=== PATIENT | male | born 1955 | race Caucasian/White ===

== ENCOUNTER 2018-10-28 11:33 | Inpatient (IN) | payer MEDICARE, OTHER ==
[~2018-10-28] VITALS: Ht 175.3 cm; Wt 80.0 kg
[2018-10-28 11:37] VITALS: Ht 175.3 cm; Wt 80.0 kg
[2018-10-28] MEDS ORDERED: ALBUTEROL 0.5% (NEB) 2.5 MG/0.5 ML AMP INH STA (11:40)
[2018-10-28] MEDS ORDERED: CEFTRIAXONE 1 GM/50 ML (PMX) 50 ML IVPB STA (11:40)
[2018-10-28] MEDS ORDERED: AZITHROMYCIN 500MG/NS (PMX) 250 ML IV STA (11:40)
[2018-10-28] MEDS ORDERED: DEXAMETHASONE 10 MG/ML 1 ML INJ IV STA (11:40)
[2018-10-28] MEDS ORDERED: SOD CHLORIDE 0.9% 1,000 ML IV STA ×2 (11:40)
[2018-10-28] MEDS ORDERED: IPRATROPIUM (NEB) 0.5 MG/2.5 ML AMP INH STA (11:40)
[2018-10-28] MEDS: MAGNESIUM SULFATE 2 GM/50 ML 50 ML IVPB STA ×2 (12:16→13:15)
--- NOTE | 2018-10-28 13:08 | ERD ---
ER Documentation Chief Complaint Chief Complaint BIB RA FOR EVAL OF SOB HX OF SMOKER HPI Very pleasant 62-year-old gentleman history of smoking who just quit several weeks ago. The patient states that he has had a couple days of subjective fevers, nonproductive cough and shortness of breath. He went to his doctor's office today but was noted to have shortness of breath and 911 was called. Patient denies any chest pain or chest pressure. No pleuritic pain, no calf swelling. Symptoms are moderate currently. Patient saturation were in the 80% via EMS. ROS All systems reviewed and are negative except as per history of present illness. 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) PMhx/Soc History of Surgery: No Anesthesia Reaction: No Hx Neurological Disorder: Yes (CSF LEAK) Hx Respiratory Disorders: Yes (COPD) Hx Cardiac Disorders: Yes (HTN) Hx Psychiatric Problems: No Hx Miscellaneous Medical Probl: Yes (LUPUS) Hx Alcohol Use: No Hx Substance Use: No Hx Tobacco Use: Yes (QUIT 8 WEEKS AGO) Smoking Status: Former smoker FmHx Family History: No diabetes Physical Exam Vitals Vital Signs Date Temp Pulse Resp B/P (MAP) Pulse Ox O2 O2 Flow FiO2 Time Delivery Rate 10/28/18 96 16 90 Nasal 2.0 28 11:54 Cannula 10/28/18 Nasal 2 11:40 Cannula 10/28/18 Nasal 2.0 11:40 Cannula 10/28/18 97.9 94 17 160/104 88 11:37 (122) Physical Exam General: Well developed, well nourished, no acute distress Head: Normocephalic, atraumatic. Eyes: Pupils equally reactive, EOM intact ENT: Moist mucous membranes Neck: Supple, no lymphadenopathy Respiratory: Scant wheezing bilaterally but no distress, good aeration Cardiovascular: RRR, no murmurs, rubs, or gallops Abdominal: Soft, non-tender, non-distended, no peritoneal signs : Deferred MSK: No edema, no unilateral swelling, 5/5 strength Neurologic: Alert and oriented, moving all extremities, normal speech, no focal weakness, no cerebellar signs Skin: No rash Psych: Normal mood Result Diagram: 10/28/18 1156 10/28/18 1156 Results 24 hrs Laboratory Tests Test 10/28/18 11:56 White Blood Count 10.5 10^3/ul Red Blood Count 4.92 10^6/ul Hemoglobin 14.5 g/dl Hematocrit 42.8 % Mean Corpuscular Volume 87.0 fl Mean Corpuscular Hemoglobin 29.5 pg Mean Corpuscular Hemoglobin Concent 33.9 g/dl Red Cell Distribution Width 12.1 % Platelet Count 387 10^3/UL Mean Platelet Volume 9.9 fl Immature Granulocytes % 0.500 % Neutrophils % 56.0 % Segmented Neutrophils % (Manual) 48 % Band Neutrophils % (Manual) 3 % Lymphocytes % 12.9 % Lymphocytes % (Manual) 19 % Monocytes % 8.6 % Monocytes % (Manual) 10 % Eosinophils % 20.8 % Eosinophils % (Manual) 18 % Basophils % 1.2 % Basophils % (Manual) 1 % Myelocytes % (Manual) 1 % Nucleated Red Blood Cells % 0.0 /100WBC Immature Granulocytes # 0.050 10^3/ul Neutrophils # 5.9 10^3/ul Neutrophils # (Manual) 5.1 10^3/ul Band Neutrophils # 0.3 10^3/ul Lymphocytes (Manual) 1.9 10^3/ul Lymphocytes # 1.4 10^3/ul Monocytes # 0.9 10^3/ul Monocytes # (Manual) 1.0 10^3/ul Eosinophils # 2.2 10^3/ul Basophils # 0.1 10^3/ul Basophils # (Manual) 0.1 10^3/ul Myelocytes # 0.1 10^3/ul Nucleated Red Blood Cells # 0.0 10^3/ul Platelet Estimate NORMAL Polychromasia 3+ Poikilocytosis 1+ Anisocytosis 1+ Microcytosis 1+ Sodium Level 142 mmol/L Potassium Level 4.1 mmol/L Chloride Level 104 mmol/L Carbon Dioxide Level 25 mmol/L Anion Gap 13 Blood Urea Nitrogen 15 mg/dl Creatinine 1.43 mg/dl Est Glomerular Filtrat Rate mL/min 50 mL/min Glucose Level 95 mg/dl Calcium Level 9.7 mg/dl Current Medications Medications Dose Sig/Juan Jose Start Time Status Last (Trade) Ordered Route PRN Stop Time Admin Dose Reason Admin Sodium 1,000 ml @ Q1H STAT 10/28/18 DC 10/28/18 Chloride 1,000 mls/hr IV 11:40 10/28/18 12:15 12:39 Azithromycin 250 ml @ ONCE STAT 10/28/18 DC 10/28/18 250 mls/hr IV 11:40 10/28/18 13:18 12:39 Ceftriaxone 50 ml @ ONCE STAT 10/28/18 DC 10/28/18 Sodium 100 mls/hr IVPB 11:40 10/28/18 12:16 12:09 Sodium 1,000 ml @ Q1H STAT 10/28/18 DC 10/28/18 Chloride 1,000 mls/hr IV 11:40 10/28/18 12:15 12:39 Albuterol 10 mg ONCE STAT 10/28/18 DC 10/28/18 (Proventil INH 11:40 10/28/18 11:49 0.5% (Neb)) 11:45 Ipratropium 1 mg ONCE STAT 10/28/18 DC 10/28/18 [place] INH 11:40 10/28/18 11:49 (Atrovent 11:45 0.02% (Neb)) 10 mg ONCE STAT 10/28/18 DC 10/28/18 Dexamethasone IV 11:40 10/28/18 12:15 (Decadron) 11:45 Magnesium 50 ml @ 25 ONCE STAT 10/28/18 DC 10/28/18 Sulfate mls/hr IVPB 11:40 10/28/18 13:15 13:39 Procedures/MDM EKG, MONITORS, & DIAGNOSTIC IMAGING: Chest x-ray: I reviewed and interpreted a 1 view of the chest Mediastinum: No enlargement Cardiac silhouette: No cardiomegaly Airspace: Interstitial process with possible right lower lobe infiltrate Bones: No evidence of fracture LAB INTERPRETATION: I reviewed the laboratory testing and it shows no evidence of acute process MEDICAL DECISION MAKING: The patient's presentation is very consistent with likely community acquired pneumonia versus COPD with exacerbation. Low concern for pulmonary embolism or dissection. No signs or symptoms concerning for ACS. Patient will benefit from evaluation for possible pneumonia and bacteremia but low concern for sepsis. ER COURSE: * Laboratory testing is reassuring. The patient's chest x-ray is additionally reassuring. Patient was given breathing treatment, magnesium, antibiotics, Decadron * After peer time the patient is much better. Saturations have dramatically improved. No increased work of breathing. Patient will likely do well on an outpatient setting. Return precautions were discussed and understood. * The patient does not meet criteria for sepsis at this time. * However, the patient saturations remained 86% on room air. The patient still having some symptoms. Inpatient hospitalization for hypoxia would be reasonable. CONSULTATION: None DISPOSITION PLAN: Medical surgical admission Accepting care team and consultations: I discussed the current laboratory data, diagnostic imaging and emergency care provided. Admitting team: Dr. Mota Admitting team indication: Insurance directed Departure Diagnosis: Primary Impression: Community acquired pneumonia Laterality: right Lung location: lower lobe of lung Qualified Codes: J18.1 - Lobar pneumonia, unspecified organism Additional Impressions: COPD with exacerbation Hypoxia Condition: Stable DENYS MUHAMMAD MD Oct 28, 2018 13:08
[2018-10-28] MEDS ORDERED: TAMS-14 PO (13:40)
[2018-10-28] MEDS ORDERED: SULF1TAB31 PO (13:40)
[2018-10-28] MEDS ORDERED: CLON0.2T5 PO (13:41)
[2018-10-28] MEDS ORDERED: HYDR200T39 PO (13:42)
[2018-10-28] MEDS ORDERED: RIZA10TA24 PO (13:43)
[2018-10-28] MEDS ORDERED: OXYC60TA9 PO (13:44)
[2018-10-28] MEDS ORDERED: TEMA30CA PO (13:44)
[2018-10-28] MEDS ORDERED: OXYC30TA64 PO (13:44)
[2018-10-28] MEDS ORDERED: ONDA4TAB13 PO (13:48)
[2018-10-28] MEDS ORDERED: ACETAMINOPHEN 325 MG TAB PO PRN ×2 (14:00→15:30)
[2018-10-28] MEDS ORDERED: ONDANSETRON 4 MG INJ IV PRN (14:00)
[2018-10-28] MEDS ORDERED: LEVOFLOXACIN 750MG/D5W (PMX) 150 ML IVPB SCH (15:30)
[2018-10-28] MEDS ORDERED: NACL 0.9% 3 ML SYG IV SCH (15:30)
[2018-10-28] MEDS: AMLODIPINE 5 MG TAB PO SCH (15:30)
[2018-10-28] MEDS ORDERED: HYDROCODONE/APAP (5/325) TAB PO PRN ×2 (15:30)
[2018-10-28] MEDS ORDERED: ACETAMINOPHEN 650 MG SUPP PR PRN (15:30)
--- NOTE | 2018-10-28 15:51 | HP ---
Date/Time of Note Date/Time of Note DATE: 10/28/18 TIME: 15:44 Assessment/Plan VTE Prophylaxis Pharmacological prophylaxis: LMWH Lines/Catheters IV C[facility]from [facility] Assessment/Plan Hospital Course Assessment and plan 1. Community acquired pneumonia. Continuing antibiotic treatment. Patient does report allergy to Levaquin. To new on Rocephin and azithromycin. 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 2. Suspect COPD with exacerbation. Patient does have extensive cigarette smoking history. Will start on breathing treatments. Cessation was advised. Continue with nicotine patch. 3. Respiratory failure secondary to #1 and #2. Continue with O2. Follow-up on chest imaging 4. History of lupus. Will resume patient's hydroxychloroquine. 5. Renal insufficiency. Will get continuing education director consultation. 6. Hypertension. Will start antihypertensives. Will adjust as needed 7. History of Chiari malformation status post surgical intervention 11 years ago. Patient does state that he does have chronic pain secondary to this as well as migraines. Will resume on analgesics. 8. Migraines. Continue with analgesics. Discussed POC with Dr. Kinsey Result Diagram: 10/28/18 1156 10/28/18 1156 Results 24hrs Laboratory Tests Test 10/28/18 11:56 10/28/18 12:56 10/28/18 13:53 White Blood Count 10.5 Red Blood Count 4.92 Hemoglobin 14.5 Hematocrit 42.8 Mean Corpuscular Volume 87.0 Mean Corpuscular Hemoglobin 29.5 Mean Corpuscular Hemoglobin Concent 33.9 Red Cell Distribution Width 12.1 Platelet Count 387 Mean Platelet Volume 9.9 Immature Granulocytes % 0.500 H Neutrophils % 56.0 Segmented Neutrophils % (Manual) 48 Band Neutrophils % (Manual) 3 Lymphocytes % 12.9 L Lymphocytes % (Manual) 19 Monocytes % 8.6 Monocytes % (Manual) 10 Eosinophils % 20.8 H Eosinophils % (Manual) 18 H Basophils % 1.2 Basophils % (Manual) 1 Myelocytes % (Manual) 1 H Nucleated Red Blood Cells % 0.0 Immature Granulocytes # 0.050 H Neutrophils # 5.9 Neutrophils # (Manual) 5.1 Band Neutrophils # 0.3 Lymphocytes (Manual) 1.9 Lymphocytes # 1.4 Monocytes # 0.9 Monocytes # (Manual) 1.0 H Eosinophils # 2.2 H Basophils # 0.1 Basophils # (Manual) 0.1 H Myelocytes # 0.1 H Nucleated Red Blood Cells # 0.0 Platelet Estimate NORMAL Polychromasia 3+ Poikilocytosis 1+ Anisocytosis 1+ Microcytosis 1+ Sodium Level 142 Potassium Level 4.1 Chloride Level 104 Carbon Dioxide Level 25 Anion Gap 13 Blood Urea Nitrogen 15 Creatinine 1.43 H Est Glomerular Filtrat Rate mL/min 50 L Glucose Level 95 Calcium Level 9.7 POC Venous Lactate 1.4 Lactic Acid Level 1.3 HPI/ROS Admit Date/Time Admit Date/Time Hx of Present Illness This is a 62-year-old male with reported history of lupus, Chiari malformation status post reported brain surgery 11 years ago, chronic pain ,hypertension, kelly spect COPD, BPH, migraines, who came to the hospital due to reports of increased shortness of breath. Patient did report that he quit smoking cigarettes 8 weeks ago. He has since then had 4 episodes of increased shortness of breath. He reported yesterday that he had a fever of 101.0 and took Tylenol. He also had some shortness of breath. This morning he reported he was going up a flight of stairs and had increased shortness of breath. As such he went to the hospital for further evaluation. He did have chest imaging initially done but did have findings showing mild bibasilar interstitial opacities with trace interstitial edema or atypical infectious/inflammatory process. he was afebrile on admission but did have a blood pressure 160/104. He was reportedly desaturating on room air on arrival to the ER was provided oxygen. His creatinine was 1.43 with a BUN of 50. No leukocytosis noted. Currently remains on O2. Reports better breathing. Denies any cough. We will evaluate him for the aformentiond issues. ROS 12 point review of systems obtained and entirely negative except as mentioned in the history of present illness PMH/Family/Social Past Medical History Medical/surgical history 1. Reported Chiari malformation status post brain surgery 11 years ago 2. Chronic pain secondary to #1 3. Hypertension 4. Suspect CVD 5. BPH 6. Migraines Medications Current Medications Ondansetron HCl (Zofran Inj) 4 mg BRIDGE ORDER PRN IV NAUSEA/VOMITING; Start 10/28/18 at 14:00; Stop 10/29/18 at 13:59 Acetaminophen (Tylenol Tab) 650 mg ER BRIDGE PRN PO .MILD PAIN 1-3 OR TEMP; St art 10/28/18 at 14:00; Stop 10/29/18 at 13:59 Hydroxychloroquine Sulfate (Plaquenil) 200 mg BID PO ; Start 10/28/18 at 21:00 Fluticasone/ Vilanterol (Breo Ellipta 100-25 Mcg Inh) 1 inh DAILY INH ; Start 10/29/18 at 09:00; Status UNV Albuterol/ Ipratropium (Duoneb) 3 ml Q4HWA RESP THERAPY HHN ; Start 10/28/18 at 17:00 Albuterol/ Ipratropium (Duoneb) 3 ml Q3H RESP THERAPY PRN HHN SHORTNESS OF BREATH; Start 10/28/18 at 15:30 Amlodipine Besylate (Norvasc) 5 mg DAILY PO ; Start 10/28/18 at 15:30 Hydralazine HCl (Apresoline) 10 mg Q4H PRN IV sbp>160; Start 10/28/18 at 15:30 Sodium Chloride 1,000 ml @ 75 mls/hr [id number] IV ; Start 10/28/18 at 15:30 IV Flush (NS 3 ml) 3 ml PER PROTOCOL IV ; Start 10/28/18 at 15:30 Ondansetron HCl (Zofran Inj) 4 mg Q6H PRN IV NAUSEA/VOMITING; Start 10/28/18 at 15:30 Acetaminophen (Tylenol Tab) 650 mg Q6H PRN PO .PAIN 1-3 OR TEMP; Start 10/28/18 at 15:30 Acetaminophen (Tylenol Supp) 650 mg Q6H PRN SD .PAIN 1-3 OR TEMP; Start 10/28/18 at 15:30 Acetaminophen/ Hydrocodone Bitart ([place] (5/325)) 1 tab Q6H PRN PO .MOD PAIN 4- 6; Start 10/28/18 at 15:30 Acetaminophen/ Hydrocodone Bitart ([place] (5/325)) 2 tab Q6H PRN PO .SEVERE PAIN 7-10; Start 10/28/18 at 15:30 Morphine Sulfate (morphine) 2 mg Q4H PRN IV .SEVERE PAIN 7-10; Start 10/28/18 at 15:30 Enoxaparin Sodium (Lovenox) 40 mg DAILY SC ; Start 10/29/18 at 09:00; Status UNV Ceftriaxone Sodium 50 ml @ 100 mls/hr Q24H IVPB ; Start 10/28/18 at 16:00; Status UNV Azithromycin 250 ml @ 250 mls/hr Q24H IVPB ; Start 10/28/18 at 16:00; Status UNV Ondansetron HCl (Zofran Tab) 4 mg Q6H PRN PO NAUSEA AND/OR VOMITING; Start 10/28/18 at 16:00; Status UNV Oxycodone HCl (Oxycontin) 30 mg BID PRN PO pain; Start 10/28/18 at 16:00; Status UNV Oxycodone HCl (Oxycontin) 60 mg Q8H PO ; Start 10/28/18 at 16:00; Status UNV Tamsulosin HCl (Flomax) 0.4 mg HS PO ; Start 10/28/18 at 21:00; Status UNV Miscellaneous Information 10 mg NEEDED PRN PO MIGRAINE; Start 10/28/18 at 16:00; Status UNV Miscellaneous Information 30 mg HS PRN PO INSOMNIA; Start 10/28/18 at 16:00; Status UNV Coded Allergies: levofloxacin (Verified Allergy, Severe, NENA CECILE'S SYNDROME, 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) Social History Alcohol Use: none Smoking Status: Former smoker (Reports over 45-year cigarette smoking history) Drug Use: none Exam/Review of Systems Vital Signs Vitals Vital Signs Date Temp Pulse Resp B/P (MAP) Pulse Ox O2 O2 Flow FiO2 Time Delivery Rate 10/28/18 96 16 90 Nasal 2.0 28 11:54 Cannula 10/28/18 97.9 160/104 11:37 (122) Exam Constitutional: alert, oriented Psych: nl mood/affect Head: normocephalic Neck: supple, non-tender Respiratory: other (Minimal wheezing right upper lung field) Cardiovascular: other (Regular rate tachycardic) Gastrointestinal: soft, non-tender Musculoskeletal: No swelling Neurological: COPYIST II-XII intact, nl mental status, nl speech REGIDORCHRISTOPHER NP Oct 28, 2018 15:51
[2018-10-28] MEDS ORDERED: ONDANSETRON 4 MG TAB PO PRN (16:00)
[2018-10-28] MEDS: morphine 2 MG INJ IV PRN ×2 (16:12→20:21)
--- NOTE | 2018-10-28 16:54 | CONS ---
DATE OF ADMISSION: 10/28/2018 DATE OF CONSULTATION: 10/28/2018 TYPE OF CONSULTATION: Infectious disease. REASON FOR CONSULTATION: Antibiotic management. HISTORY OF PRESENT ILLNESS: Larry Cross is a 62-year-old male who was brought in for evaluati on for shortness of breath. The patient has a history of smoking and quit several weeks ago. He had a few days of subjective fever, nonproductive cough and shortness of breath. He went to his doctor' s office. He was noted to be short of breath and 911 was called. The patient's saturation was in th e 80s via EMS. His past problems include: 1. COPD. 2. Hypertension. 3. Lupus. 4. History of smoking, quit 8 weeks ago. 5. History of severe Anderson-Eduardo syndrome, on Levaquin. 6. History of CSF leak. PAST MEDICAL HISTORY: Operations as outlined. FAMILY HISTORY: Noncontributory. SOCIAL HISTORY: He quit smoking 8 weeks ago. He does not drink or abuse drugs. ALLERGIES: NONE TO PENICILLIN, SULFA OR FOODS. MEDICATIONS: Per chart. REVIEW OF SYSTEMS: As per HPI. PHYSICAL EXAMINATION: GENERAL: The patient is a well-developed, well-nourished male in no acute distress. VITAL SIGNS: Stable. He is afebrile. BP is 160/104. SKIN: Without generalized rash. HEENT: Within normal limits. NECK: Supple. LYMPH NODES: None palpable. CHEST: Decreased breath sounds at the bases with occasional wheezes. ABDOMEN: Soft, nontender without organosplenomegaly or masses. EXTREMITIES: Without cyanosis, clubbing or edema. RECTAL AND GENITAL: Deferred. NEUROLOGICAL: No focal neurological abnormalities. LABORATORY DATA: White count 10.5, H and H of 14.5 and 42.8, platelet count 387,000. BUN and creati nine is 15/1.43. He had 48% neutrophils, 3% bands. IMAGING: Chest x-ray showed mild bibasilar interstitial opacities, may represent trace interstitial edema or atypical infectious inflammatory process in the acute clinical setting. IMPRESSION AND PLAN: The patient was started on azithromycin and ceftriaxone for community-acquired pneumonia. We will continue him on this regimen. I suspect chronic obstructive pulmonary disease wi th exacerbation since he has an extensive smoking history. He has a history of lupus. We will resum e patient's hydroxychloroquine. He has a history of Chiari malformation status post surgical interve ntion 11 years ago. He also has chronic pain secondary to this as well as migraines. I will dictate my findings to the hospitalist. Dictated By: RACHEAL MORTENSEN MD, JD/LOUIE Conf#: [id number] DID#: [id number] CC: ZAID BISHOP DO; DENYS MUHAMMAD MD;*End*
[2018-10-28] MEDS: ALBUTEROL/IPRATROPIUM (NEB) 3 ML AMP HHN SCH ×2 (17:00→20:07)
[2018-10-28] MEDS: hydrALAzine 20 MG INJ IV PRN (17:46)
[2018-10-28 18:45] VITALS: BP 174/90; PULSE 80; RESP 18
[2018-10-28] MEDS: SOD CHLORIDE 0.9% 1,000 ML IV SCH (19:02)
[2018-10-28] MEDS: CEFTRIAXONE 2 GM/50 ML (PMX) 50 ML IVPB SCH (19:03)
--- NOTE | 2018-10-28 19:37 | CONS ---
DATE OF ADMISSION: 10/28/2018 DATE OF CONSULTATION: 10/28/2018 TYPE OF CONSULTATION: Nephrology. REASON FOR CONSULTATION: Acute kidney injury, CKD. PROVIDER REQUESTING CONSULT: Troy Milian NP HISTORY OF PRESENT ILLNESS: This is a 62-year-old male with past medical history of chronic kidney d isease with previous baseline creatinine around 1.4 mg/dL, history of lupus, history of hypertension, history of BPH, history of chronic pain syndrome, history Chiari malformation, history of COPD, who presents to [facility] with increased shortness of breath. The patient states over the past several weeks he has had increased shortness of breath. The patient states that he was rec ently diagnosed with pneumonia. He was on multiple course of antibiotics without resolution of his s hortness of breath. Most recently, the patient had episodes of dyspnea on exertion upon going up a f light of stairs. As a result, he was brought into [facility] Emergency Room for ev aluation. Upon arrival, the patient was hypertensive. Systolic blood pressure is 160. The patient had a chest x-ray which showed bibasilar interstitial opacities. The patient was started on IV antib iotics and was admitted to med/surg for evaluation. In terms of patient's renal history, the patient reported having CKD due to his underlying lupus. Th e patient's most recent creatinine from approximately 4 months ago was 1.4 mg/dL. The patient denies any hemoptysis, hematemesis, hematochezia. PAST MEDICAL HISTORY: As stated above, history of chronic kidney disease, history of lupus, history of hypertension, chronic pain syndrome, COPD, BPH, history of migraines. PAST SURGICAL HISTORY: Reviewed. ALLERGIES: PLEASE SEE LIST. FAMILY HISTORY: No family history of kidney disease. SOCIAL HISTORY: Does not drink, smoke or do drugs. MEDICATIONS: Have been reviewed. REVIEW OF SYSTEMS: A 14-point review of systems was conducted. Pertinent positives were stated in H PI; otherwise negative. PHYSICAL EXAMINATION: VITAL SIGNS: Blood pressure is 164/79, respirations 20, pulse 90, temperature 98.2. HEENT: Head is normocephalic. NECK: Supple. HEART: Regular rate. LUNGS: Show diminished breath sounds at the base. Positive rhonchi. ABDOMEN: Soft, nontender to palpation without rebound or guarding. EXTREMITIES: Negative for clubbing, cyanosis, no edema. DERMATOLOGIC: No rashes. MUSCULOSKELETAL: No joint effusion. NEUROLOGIC: No change in exam. LABORATORY DATA: Have been reviewed. IMAGING STUDIES: Have been reviewed. ASSESSMENT AND PLAN: This is a 62-year-old male who presents with: 1. Nonoliguric acute kidney injury on top of chronic kidney disease with previous creatinine around 1.49 mg/dL. Etiology of acute kidney injury is likely multifactorial secondary to hemodynamics, poss ible Bactrim effect. Other possibilities such as acute tubular injury and interstitial nephritis are considerations. Plan at this point is to check UA with microanalysis, check urine electrolytes. Th e patient had a renal ultrasound performed approximately 4 weeks ago and per patient, it was a normal study. We will therefore continue current medical management. We would recommend to hold Bactrim. Otherwise, continue supportive care, renally dose all medications. Continue course of IV hydration and monitor closely. 2. Chronic kidney disease with previous baseline creatinine of 1.4 mg/dL. Etiology is likely second gena to hypertension, questionable history of lupus nephritis. The patient's current acute kidney inj ury as stated above. We will continue current treatment, continue disease factor modification. We w ill also follow up a urinalysis. 3. Mineral bone disorder. Monitor calcium and phosphorus levels. 4. Hypertension. Continue current blood pressure regimen. 5. Pneumonia. Continue current antibiotic regimen. 6. History of chronic obstructive pulmonary disease with exacerbation. Continue to monitor. Contin ue nebulizers. 7. History of lupus. Continue hydroxychloroquine or plan. 8. History of Chiari malformation. Continue to monitor. Thank you, Troy, for this interesting consult. It will be a pleasure to follow patient with you t hrashleyout the hospital course. Dictated By: ZAID BISHOP DO NR/NTS Conf#: [id number] DID#: [id number] CC: JENNIFER ACOSTA MD;*End*
[2018-10-28 20:00] VITALS: BP 168/84; PULSE 83; RESP 18
[2018-10-28] MEDS: AZITHROMYCIN 500MG/NS (PMX) 250 ML IVPB SCH (20:21)
[2018-10-28] MEDS: HYDROXYCHLOROQUINE 200 MG TAB PO SCH (21:17)
[2018-10-28] MEDS: oxyCODONE (CR) 20 MG TAB [oxyCONTIN] PO SCH (21:17)
[2018-10-28] MEDS: TAMSULOSIN (SR) 0.4 MG CAP PO SCH (21:17)
[2018-10-28] MEDS ORDERED: OXYCODONE 60 MG PO SCH (22:00)
[2018-10-28 22:04] VITALS: BP 166/79; PULSE 82; RESP 20
[2018-10-28] MEDS: ALBUTEROL/IPRATROPIUM (NEB) 3 ML AMP HHN PRN (23:11)
[2018-10-29] VITALS (7 sets, daily range): BP systolic 121–183; BP diastolic 72–97; PULSE 88–95; RESP 16–20
[2018-10-29] MEDS: morphine 2 MG INJ IV PRN ×5 (00:50→18:51)
[2018-10-29] MEDS: hydrALAzine 20 MG INJ IV PRN ×2 (01:58→17:07)
[2018-10-29] MEDS: oxyCODONE 15 MG TAB PO PRN (01:58)
[2018-10-29] MEDS: SUMATRIPTAN 50 MG TAB PO PRN (02:12)
[2018-10-29] MEDS: ALBUTEROL/IPRATROPIUM (NEB) 3 ML AMP HHN PRN (03:09)
[2018-10-29] MEDS: SOD CHLORIDE 0.9% 1,000 ML IV SCH (04:50)
[2018-10-29] MEDS: ONDANSETRON 4 MG INJ IV PRN ×3 (06:06→20:45)
[2018-10-29] MEDS: oxyCODONE (CR) 20 MG TAB [oxyCONTIN] PO SCH ×3 (06:06→22:21)
[2018-10-29] MEDS: AMLODIPINE 5 MG TAB PO SCH (08:24)
[2018-10-29] MEDS: HYDROXYCHLOROQUINE 200 MG TAB PO SCH ×2 (08:24→20:45)
[2018-10-29] MEDS: FLUTICASONE/VILANTEROL 100-25 INH SCH (08:26)
[2018-10-29] MEDS: ENOXAPARIN 40 MG/0.4 ML SYG SC SCH (09:03)
[2018-10-29] MEDS: ALBUTEROL/IPRATROPIUM (NEB) 3 ML AMP HHN SCH ×4 (09:23→20:23)
--- NOTE | 2018-10-29 09:47 | PN ---
DATE: 10/29/2018 SUBJECTIVE: The patient is stable, no events overnight. No fevers, chills, nausea, vomiting. OBJECTIVE: VITAL SIGNS: Blood pressure is 121/74, pulse 94, respirations 19, temperature 98.0. HEENT: Head is normocephalic. NECK: Supple. HEART: Regular rate. LUNGS: Show diminished breath sounds at the base. ABDOMEN: Soft, nontender to palpation without rebound or guarding. EXTREMITIES: Negative for clubbing, cyanosis, no edema. DERMATOLOGIC: No rashes. MUSCULOSKELETAL: No joint effusion. NEUROLOGIC: No change in exam. MEDICATIONS: Have been reviewed. LABORATORY DATA: Has been reviewed. IMAGING STUDIES: Have been reviewed. ASSESSMENT AND PLAN: 1. Nonoliguric acute kidney injury on top of chronic kidney disease with previous baseline creatinin e around 1.4 mg/dL. Etiology of current acute kidney injury is secondary to hemodynamics, possible B actrim effect. The patient's renal function has improved with IV fluids, holding Bactrim. At this p oint, continue current treatment plan, supportive care, renally dose all meds. Will discontinue IV h ydration and monitor. 2. History of chronic kidney disease with previous baseline creatinine around 1.4 mg/dL. Etiology o f acute kidney injury is unclear. Questionable history of lupus. The patient's renal function has c urrently improved with IV hydration. Will continue to monitor, continue disease factor modification. 3. Mineral bone disorder, monitor calcium and phosphorus levels. 4. Hypertension. Continue current blood pressure regimen. 5. Pneumonia. Continue current antibiotic regimen. 6. History of chronic obstructive pulmonary disease, possible exacerbation. Continue medical manage ment. Continue nebulizers. 7. History of lupus. Continue current treatment plan. Continue hydroxychloroquine. 8. History of Chiari malformation. Continue to monitor. Dictated By: ZAID FISH/LOUIE Conf#: [id number] DID#: [id number]
[2018-10-29] MEDS ORDERED: SCOPOLAMINE 1.5 MG PATCH TRANSDERM ONE (10:00)
--- NOTE | 2018-10-29 13:54 | CONS ---
Assessment/Plan Assessment/Plan Hospital Course (Demo Recall) Patient is sleeping, comfortable on nasal cannula, no fevers overnight. WBC 11.4 platelets 370 neutrophils 85.3 BUN 17 creatinine 1.16 lactic acid 1.9 Antimicrobials: Zithromax, Rocephin Microbiology: Blood cultures negative, influenza swab negative Physical examination: Well-developed obese elderly man who is in no distress head atraumatic normocephalic neck is supple chest rise symmetrical breath sounds diminished bases heart: S1-S2 abdomen obese soft bowel sounds present extremities without cyanosis Assessment: 1. Community-acquired pneumonia/COPD exacerbation 2. Acute kidney injury with improving kidney function 3. Obesity 4. History of lupus 5. Hypertension 6. Migraine headaches status post surgical intervention for Ciari malformation Plan: Patient remains stable, kidney function improving, continue present care antibiotics repeat chest x-ray in a.m. Consultation Date/Type/Reason Admit Date/Time Oct 28, 2018 at 13:40 Initial Consult Date Type of Consult id Date/Time of Note DATE: 10/29/18 TIME: 13:53 Exam/Review of Systems Exam Vitals Vital Signs Date Temp Pulse Resp B/P (MAP) Pulse Ox O2 O2 Flow FiO2 Time Delivery Rate 10/29/18 89 22 96 Nasal 3.0 09:16 Cannula 10/29/18 99.0 183/86 08:35 (118) 10/28/18 28 11:54 Intake and Output 10/28/18 10/28/18 10/29/18 1414:59 22:59 06:59 IntakeIntake Total 2300 ml 350 ml 675 ml BalanceBalance 2300 ml 350 ml 675 ml Results Result Diagram: 10/29/18 0504 10/29/18 0504 Results 24hrs Laboratory Tests Test 10/28/18 17:13 10/28/18 22:00 10/29/18 05:04 10/29/18 09:21 Lactic Acid Level 2.1 *H 1.9 Urine Color YELLOW Urine Clarity CLEAR Urine pH 7.0 Urine Specific [place] 1.012 Urine Ketones NEGATIVE Urine Nitrite NEGATIVE Urine Bilirubin NEGATIVE Urine Urobilinogen NEGATIVE Urine Leukocyte Esterase NEGATIVE Urine Hemoglobin NEGATIVE Urine Random Creatinine 49.90 Urine Random Sodium 86 Urine Glucose 1+ H Urine Total Protein 18.0 H White Blood Count 11.4 H Red Blood Count 4.56 L Hemoglobin 13.4 L Hematocrit 39.7 L Mean Corpuscular Volume 87.1 Mean Corpuscular 29.4 Hemoglobin Mean Corpuscular 33.8 Hemoglobin Concent Red Cell Distribution 12.4 Width Platelet Count 370 Mean Platelet Volume 10.0 Immature Granulocytes % 0.500 H Neutrophils % 85.3 H Lymphocytes % 7.1 L Monocytes % 6.8 Eosinophils % 0.0 Basophils % 0.3 Nucleated Red Blood 0.0 Cells % Immature Granulocytes # 0.060 H Neutrophils # 9.8 H Lymphocytes # 0.8 Monocytes # 0.8 Eosinophils # 0.0 Basophils # 0.0 Nucleated Red Blood 0.0 Cells # Sodium Level 143 Potassium Level 4.1 Chloride Level 109 Carbon Dioxide Level 23 Anion Gap 11 Blood Urea Nitrogen 17 Creatinine 1.16 Est Glomerular Filtrat > 60 Rate mL/min Glucose Level 139 # Hemoglobin A1c 5.4 Calcium Level 9.3 Phosphorus Level 3.2 Magnesium Level 2.4 Total Bilirubin 0.2 Direct Bilirubin 0.00 Indirect Bilirubin 0.2 Aspartate Amino 27 Transf (AST/SGOT) Alanine 15 Aminotransferase (ALT/SG PT) Alkaline Phosphatase 120 Total Protein 8.2 H Albumin 4.3 Globulin 3.90 H Albumin/Globulin Ratio 1.10 Triglycerides Level 49 Cholesterol Level 149 LDL Cholesterol, 107 Calculated HDL Cholesterol 32 Cholesterol/HDL Ratio 4.6 Thyroid Stimulating 0.377 L Hormone (TSH) Free Thyroxine Index 2.63 Thyroxine (T4) 6.7 Triiodothyronine (T3) 39.2 Uptake Medications Medication Current Medications Hydroxychloroquine Sulfate (Plaquenil) 200 mg BID PO Last administered on 10/29/18 08:24; Admin Dose 200 MG; Start 10/28/18 at 21:00 Fluticasone/ Vilanterol (Breo Ellipta 100-25 Mcg Inh) 1 inh DAILY INH Last administered on 10/29/18 08:26; Admin Dose 1 INH; Start 10/29/18 at 09:00 Albuterol/ Ipratropium (Duoneb) 3 ml Q4HWA RESP THERAPY HHN Last administered on 10/29/18 09:23; Admin Dose 3 ML; Start 10/28/18 at 17:00 Albuterol/ Ipratropium (Duoneb) 3 ml Q3H RESP THERAPY PRN HHN SHORTNESS OF BREATH Last administered on 10/29/18 03:09; Admin Dose 3 ML; Start 10/28/18 at 15:30 Amlodipine Besylate (Norvasc) 5 mg DAILY PO Last administered on 10/29/18 08:24; Admin Dose 5 MG; Start 10/28/18 at 15:30 Hydralazine HCl (Apresoline) 10 mg Q4H PRN IV sbp>160 Last administered on 10/29/18 01:58; Admin Dose 10 MG; Start 10/28/18 at 15:30 IV Flush (NS 3 ml) 3 ml PER PROTOCOL IV ; Start 10/28/18 at 15:30 Ondansetron HCl (Zofran Inj) 4 mg Q6H PRN IV NAUSEA/VOMITING Last administered on 10/29/18 06:06; Admin Dose 4 MG; Start 10/28/18 at 15:30 Acetaminophen (Tylenol Tab) 650 mg Q6H PRN PO .PAIN 1-3 OR TEMP; Start 10/28/18 at 15:30 Acetaminophen (Tylenol Supp) 650 mg Q6H PRN SD .PAIN 1-3 OR TEMP; Start 10/28/18 at 15:30 Morphine Sulfate (morphine) 2 mg Q4H PRN IV .SEVERE PAIN 7-10 Last administered on 10/29/18 10:28; Admin Dose 2 MG; Start 10/28/18 at 15:30 Enoxaparin Sodium (Lovenox) 40 mg DAILY SC Last administered on 10/29/18 09:03; Admin Dose 40 MG; Start 10/29/18 at 09:00 Ceftriaxone Sodium 50 ml @ 100 mls/hr Q24H IVPB Last administered on 10/28/18 19:03; Admin Dose 100 MLS/HR; Start 10/28/18 at 17:00 Azithromycin 250 ml @ 250 mls/hr Q24H IVPB Last administered on 10/28/18 20:21; Admin Dose 250 MLS/HR; Start 10/28/18 at 18:00 Ondansetron HCl (Zofran Tab) 4 mg Q6H PRN PO NAUSEA AND/OR VOMITING; Start 10/28/18 at 16:00 Oxycodone HCl (Roxicodone) 30 mg BID PRN PO MODERATE PAIN LEVEL 4-6 Last administered on 10/29/18 01:58; Admin Dose 30 MG; Start 10/28/18 at 19:00 Tamsulosin HCl (Flomax) 0.4 mg HS PO Last administered on 10/28/18at 21:17; Admin Dose 0.4 MG; Start 10/28/18 at 21:00 Sumatriptan Succinate (Imitrex) 50 mg PRN PRN PO MIGRAINE Last administered on 10/29/18at 02:12; Admin Dose 50 MG; Start 10/28/18 at 19:30 Zolpidem Tartrate (Ambien) 5 mg HS MAY REPEAT X 1 PRN PO INSOMNIA; Start 10/28/18 at 17:30 Oxycodone HCl (Oxycontin) 60 mg Q8 PO Last administered on 10/29/18at 06:06; Admin Dose 60 MG; Start 10/28/18 at 22:00 Clonidine (Catapres) 0.1 mg Q4H PRN PO sbp>160; Start 10/29/18 at 09:00 ROCKY WILSON NP Oct 29, 2018 13:54
[2018-10-29] MEDS: CEFTRIAXONE 2 GM/50 ML (PMX) 50 ML IVPB SCH (16:36)
[2018-10-29] MEDS: AZITHROMYCIN 500MG/NS (PMX) 250 ML IVPB SCH (17:09)
--- NOTE | 2018-10-29 18:06 | CONS ---
Assessment/Plan Assessment/Plan Hospital Course (Demo Recall) Summary Assessment and Plan: Assessment: Chronic intermittent nausea/vomiting Community-acquired pneumonia Normocytic anemia, mild DOMO- improved History of COPD History of lupus History of Chiari malformation -S/p surgical intervention 11 years ago -Migraines since surgery History of severe Aurelio Eduardo's syndrome - from [facility] History of smoking quit 8 weeks ago Plan: Continue anti-emetic therapy- will add trial Reglan 10 mg IV q6hr- discussed side effects with patient- who verbalized understanding Add H2 baldomero BID Diet as tolerated Possible previous recent EGD- to look for report and bring to hospital Will consider EGD - if there has been no recent EGD Continue close observation Patient seen in collaboration with Dr. Kent CC: GHAZALA KENT MD ; Consultation Date/Type/Reason Admit Date/Time Oct 28, 2018 at 13:40 Date of Consultation: Oct 29, 2018 Type of Consult GI Reason for Consultation Chronic nausea/vomiting Requesting Provider: CHRISTOPHER MOORE NP Date/Time of Note DATE: 10/29/18 TIME: 17:41 Hx of Present Illness This is a 62-year-old male with past medical history of COPD, smoking however quit 8 weeks ago, severe Anderson-Eduardo syndrome from [facility], hypertension, lupus,Chiari malformation status post surgical intervention 11 years ago now has chronic pain and migraines from surgery admitted for community-acquired pneumonia patient presented earlier today with complaints of persistent nausea and vomiting. GIs been consulted for further evaluation. At time evaluation patient states this is something has been ongoing off and on for the past year when asked about work-up as completed patient said been "through the ringer'. Specifically asked if patient previously had an upper endoscopy he said he thinks he may have had a recent EGD at [facility] results or name of physician who completed the procedure. Per his request I called his Sylvia she does not believe patient had a previous EGD however she will go through paperwork. If report is found she will bring to the hospital tomorrow. Discussed plan with patient to start trial of Reglan [id number] and will start PPI IV daily for persistent nausea and vomiting. Review of Systems: [A 12 system, review was conducted and is negative except as noted in the HPI or here.] Past Medical History Home Meds Reported Medications Ondansetron Hcl* (Zofran*) 4 Mg Tab, 4 MG PO Q6H PRN for NAUSEA AND OR VOMITING, TAB 10/28/18 Temazepam* (Temazepam*) 30 Mg Capsule, 30 MG PO HS PRN for INSOMNIA, CAP 10/28/18 Oxycodone Hcl* (Oxycontin*) 60 Mg Tab.sr.12h, 60 MG PO Q8H, TAB 10/28/18 Oxycodone Hcl* (Oxycontin*) 30 Mg Tab.sr.12h, 30 MG PO NEEDED, TAB 10/28/18 Rizatriptan Benzoate (Rizatriptan Benzoate) 10 Mg Tab.rapdis, 10 MG PO NEEDED PRN for MIGRAINE, TAB may repeat after 2 hours, MAX 30 mg/24 hour 10/28/18 Hydroxychloroquine Sulfate* (Hydroxychloroquine Sulfate*) 200 Mg Tablet, 200 MG PO BID, TAB 10/28/18 Clonidine Hcl* (Clonidine Hcl*) 0.2 Mg Tablet, 0.2 MG PO BID PRN for NEEDED, TAB 10/28/18 Tamsulosin Hcl* (Flomax*) 0.4 Mg Cap.er.24h, 0.4 MG PO HS, CAP 10/28/18 Sulfamethoxazole/Trimethoprim* (Bactrim Ds* Tablet) 1 Each Tablet, 1 TAB PO BID, TAB FOR 21 DAYS, START DATE 10/17/18 10/28/18 Medications Current Medications Hydroxychloroquine Sulfate (Plaquenil) 200 mg BID PO Last administered on 10/29/18at 08:24; Admin Dose 200 MG; Start 10/28/18 at 21:00 Fluticasone/ Vilanterol (Breo Ellipta 100-25 Mcg Inh) 1 inh DAILY INH Last administered on 10/29/18at 08:26; Admin Dose 1 INH; Start 10/29/18 at 09:00 Albuterol/ Ipratropium (Duoneb) 3 ml Q4HWA RESP THERAPY HHN Last administered on 10/29/18at 15:10; Admin Dose 3 ML; Start 10/28/18 at 17:00 Albuterol/ Ipratropium (Duoneb) 3 ml Q3H RESP THERAPY PRN HHN SHORTNESS OF BREATH Last administered on 10/29/18at 03:09; Admin Dose 3 ML; Start 10/28/18 at 15:30 Amlodipine Besylate (Norvasc) 5 mg DAILY PO Last administered on 10/29/18 08:24; Admin Dose 5 MG; Start 10/28/18 at 15:30 Hydralazine HCl (Apresoline) 10 mg Q4H PRN IV sbp>160 Last administered on 10/29/18 17:07; Admin Dose 10 MG; Start 10/28/18 at 15:30 IV Flush (NS 3 ml) 3 ml PER PROTOCOL IV ; Start 10/28/18 at 15:30 Ondansetron HCl (Zofran Inj) 4 mg Q6H PRN IV NAUSEA/VOMITING Last administered on 10/29/18 14:29; Admin Dose 4 MG; Start 10/28/18 at 15:30 Acetaminophen (Tylenol Tab) 650 mg Q6H PRN PO .PAIN 1-3 OR TEMP; Start 10/28/18 at 15:30 Acetaminophen (Tylenol Supp) 650 mg Q6H PRN [place] .PAIN 1-3 OR TEMP; Start 10/28/18 at 15:30 Morphine Sulfate (morphine) 2 mg Q4H PRN IV .SEVERE PAIN 7-10 Last administered on 10/29/18 14:29; Admin Dose 2 MG; Start 10/28/18 at 15:30 Enoxaparin Sodium (Lovenox) 40 mg DAILY SC Last administered on 10/29/18 09:03; Admin Dose 40 MG; Start 10/29/18 at 09:00 Ceftriaxone Sodium 50 ml @ 100 mls/hr Q24H IVPB Last administered on 10/29/18 16:36; Admin Dose 100 MLS/HR; Start 10/28/18 at 17:00 Azithromycin 250 ml @ 250 mls/hr Q24H IVPB Last administered on 10/29/18 17:09; Admin Dose 250 MLS/HR; Start 10/28/18 at 18:00 Ondansetron HCl (Zofran Tab) 4 mg Q6H PRN PO NAUSEA AND/OR VOMITING; Start 10/28/18 at 16:00 Oxycodone HCl (Roxicodone) 30 mg BID PRN PO MODERATE PAIN LEVEL 4-6 Last administered on 10/29/18 01:58; Admin Dose 30 MG; Start 10/28/18 at 19:00 Tamsulosin HCl (Flomax) 0.4 mg HS PO Last administered on 10/28/18at 21:17; Admin Dose 0.4 MG; Start 10/28/18 at 21:00 Sumatriptan Succinate (Imitrex) 50 mg PRN PRN PO MIGRAINE Last administered on 10/29/18at 02:12; Admin Dose 50 MG; Start 10/28/18 at 19:30 Zolpidem Tartrate (Ambien) 5 mg HS MAY REPEAT X 1 PRN PO INSOMNIA; Start 10/28/18 at 17:30 Oxycodone HCl (Oxycontin) 60 mg Q8 PO Last administered on 10/29/18at 14:19; Admin Dose 60 MG; Start 10/28/18 at 22:00 Clonidine (Catapres) 0.1 mg Q4H PRN PO sbp>160; Start 10/29/18 at 09:00 Allergies: Coded Allergies: levofloxacin (Verified Allergy, Severe, NENA EDUARDO'S SYNDROME, 10/28/18) Social History Alcohol Use: none Smoking Status: Former smoker Drug Use: none Exam/Review of Systems Exam Vitals Vital Signs Date Temp Pulse Resp B/P (MAP) Pulse Ox O2 O2 Flow FiO2 Time Delivery Rate 10/29/18 88 167/75 17:00 (105) 10/29/18 98.8 17 96 Nasal 14:24 Cannula 10/29/18 3.0 09:16 10/28/18 28 11:54 Intake and Output 10/28/18 10/28/18 10/29/18 1515:00 23:00 07:00 IntakeIntake Total 2300 ml 350 ml 675 ml BalanceBalance 2300 ml 350 ml 675 ml Exam PHYSICAL EXAMINATION: GENERAL: Well developed, well nourished, alert & oriented x 3, in no acute distress SKIN: Facial erythema HEAD: Normocephalic, atraumatic, no tenderness. EYES: Pupils equal reactive to light and accommodation, no discharge. EARS/NOSE AND THROAT: Ears normal, nose normal, NECK: Supple, no masses. CHEST: Inspection within normal limits. CARDIOVASCULAR: Heart: Regular rate and rhythm RESPIRATORY: Lungs clear to auscultation and percussion, no wheezing, no rubs GASTROINTESTINAL AND LIVER: Abdomen: Soft, non tenderness, non-distended, no hernias, no masses, no organomegaly, no ascites, no guarding, no rebound tenderness, normoactive bowel sounds. Rectal: Deferred. EXTREMITIES: No cyanosis, clubbing or edema. Results Result Diagram: 10/29/18 0504 10/29/18 0504 Results 24hrs Laboratory Tests Test 10/28/18 22:00 10/29/18 05:04 10/29/18 09:21 Urine Color YELLOW Urine Clarity CLEAR Urine pH 7.0 Urine Specific [place] 1.012 Urine Ketones NEGATIVE Urine Nitrite NEGATIVE Urine Bilirubin NEGATIVE Urine Urobilinogen NEGATIVE Urine Leukocyte Esterase NEGATIVE Urine Hemoglobin NEGATIVE Urine Random Creatinine 49.90 Urine Random Sodium 86 Urine Glucose 1+ H Urine Total Protein 18.0 H White Blood Count 11.4 H Red Blood Count 4.56 L Hemoglobin 13.4 L Hematocrit 39.7 L Mean Corpuscular Volume 87.1 Mean Corpuscular Hemoglobin 29.4 Mean Corpuscular Hemoglobin Concent 33.8 Red Cell Distribution Width 12.4 Platelet Count 370 Mean Platelet Volume 10.0 Immature Granulocytes % 0.500 H Neutrophils % 85.3 H Lymphocytes % 7.1 L Monocytes % 6.8 Eosinophils % 0.0 Basophils % 0.3 Nucleated Red Blood Cells % 0.0 Immature Granulocytes # 0.060 H Neutrophils # 9.8 H Lymphocytes # 0.8 Monocytes # 0.8 Eosinophils # 0.0 Basophils # 0.0 Nucleated Red Blood Cells # 0.0 Sodium Level 143 Potassium Level 4.1 Chloride Level 109 Carbon Dioxide Level 23 Anion Gap 11 Blood Urea Nitrogen 17 Creatinine 1.16 Est Glomerular Filtrat Rate mL/min > 60 Glucose Level 139 # Hemoglobin A1c 5.4 Calcium Level 9.3 Phosphorus Level 3.2 Magnesium Level 2.4 Total Bilirubin 0.2 Direct Bilirubin 0.00 Indirect Bilirubin 0.2 Aspartate Amino Transf (AST/SGOT) 27 Alanine Aminotransferase (ALT/SGPT) 15 Alkaline Phosphatase 120 Total Protein 8.2 H Albumin 4.3 Globulin 3.90 H Albumin/Globulin Ratio 1.10 Triglycerides Level 49 Cholesterol Level 149 LDL Cholesterol, Calculated 107 HDL Cholesterol 32 Cholesterol/HDL Ratio 4.6 Thyroid Stimulating Hormone (TSH) 0.377 L Free Thyroxine Index 2.63 Thyroxine (T4) 6.7 Triiodothyronine (T3) Uptake 39.2 Lactic Acid Level 1.9 Medications Medication Current Medications Hydroxychloroquine Sulfate (Plaquenil) 200 mg BID PO Last administered on 10/29/18 08:24; Admin Dose 200 MG; Start 10/28/18 at 21:00 Fluticasone/ Vilanterol (Breo Ellipta 100-25 Mcg Inh) 1 inh DAILY INH Last administered on 10/29/18 08:26; Admin Dose 1 INH; Start 10/29/18 at 09:00 Albuterol/ Ipratropium (Duoneb) 3 ml Q4HWA RESP THERAPY HHN Last administered on 10/29/18 15:10; Admin Dose 3 ML; Start 10/28/18 at 17:00 Albuterol/ Ipratropium (Duoneb) 3 ml Q3H RESP THERAPY PRN HHN SHORTNESS OF BREATH Last administered on 10/29/18 03:09; Admin Dose 3 ML; Start 10/28/18 at 15:30 Amlodipine Besylate (Norvasc) 5 mg DAILY PO Last administered on 10/29/18 08:24; Admin Dose 5 MG; Start 10/28/18 at 15:30 Hydralazine HCl (Apresoline) 10 mg Q4H PRN IV sbp>160 Last administered on 10/29/18 17:07; Admin Dose 10 MG; Start 10/28/18 at 15:30 IV Flush (NS 3 ml) 3 ml PER PROTOCOL IV ; Start 10/28/18 at 15:30 Ondansetron HCl (Zofran Inj) 4 mg Q6H PRN IV NAUSEA/VOMITING Last administered on 10/29/18 14:29; Admin Dose 4 MG; Start 10/28/18 at 15:30 Acetaminophen (Tylenol Tab) 650 mg Q6H PRN PO .PAIN 1-3 OR TEMP; Start 10/28/18 at 15:30 Acetaminophen (Tylenol Supp) 650 mg Q6H PRN [place] .PAIN 1-3 OR TEMP; Start 10/28/18 at 15:30 Morphine Sulfate (morphine) 2 mg Q4H PRN IV .SEVERE PAIN 7-10 Last administered on 10/29/18 14:29; Admin Dose 2 MG; Start 10/28/18 at 15:30 Enoxaparin Sodium (Lovenox) 40 mg DAILY SC Last administered on 10/29/18 09:03; Admin Dose 40 MG; Start 10/29/18 at 09:00 Ceftriaxone Sodium 50 ml @ 100 mls/hr Q24H IVPB Last administered on 10/29/18 16:36; Admin Dose 100 MLS/HR; Start 10/28/18 at 17:00 Azithromycin 250 ml @ 250 mls/hr Q24H IVPB Last administered on 10/29/18 17:09; Admin Dose 250 MLS/HR; Start 10/28/18 at 18:00 Ondansetron HCl (Zofran Tab) 4 mg Q6H PRN PO NAUSEA AND/OR VOMITING; Start 10/28/18 at 16:00 Oxycodone HCl (Roxicodone) 30 mg BID PRN PO MODERATE PAIN LEVEL 4-6 Last administered on 10/29/18at 01:58; Admin Dose 30 MG; Start 10/28/18 at 19:00 Tamsulosin HCl (Flomax) 0.4 mg HS PO Last administered on 10/28/18 21:17; Admin Dose 0.4 MG; Start 10/28/18 at 21:00 Sumatriptan Succinate (Imitrex) 50 mg PRN PRN PO MIGRAINE Last administered on 10/29/18 02:12; Admin Dose 50 MG; Start 10/28/18 at 19:30 Zolpidem Tartrate (Ambien) 5 mg HS MAY REPEAT X 1 PRN PO INSOMNIA; Start 10/28/18 at 17:30 Oxycodone HCl (Oxycontin) 60 mg Q8 PO Last administered on 10/29/18 14:19; Admin Dose 60 MG; Start 10/28/18 at 22:00 Clonidine (Catapres) 0.1 mg Q4H PRN PO sbp>160; Start 10/29/18 at 09:00 HERNAN AYALA Oct 29, 2018 17:52
[2018-10-29] MEDS: METOCLOPRAMIDE 10 MG INJ IV SCH (18:50)
--- NOTE | 2018-10-29 19:54 | PN ---
Date/Time of Note Date/Time of Note DATE: 10/29/18 TIME: 19:50 Assessment/Plan VTE Prophylaxis Risk score (from Ns)>0 risk: 2 SCD applied (from Ns): Yes Pharmacological prophylaxis: LMWH Lines/Catheters IV Catheter Type (from [facility]): Peripheral IV Assessment/Plan Hospital Course Assessment and plan 1. Community acquired pneumonia. -Continuing antibiotic treatment. - Patient does report allergy to Levaquin. 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 Suspect COPD with exacerbation. - Patient does have extensive cigarette smoking history. - continue breathing treatments. - smoking Cessation was advised. - Continue with nicotine patch. 3. Respiratory failure secondary to #1 and #2. - Continue with O2. 4. History of lupus. ' - continue patient's hydroxychloroquine. 5. Renal insufficiency. - monitor renal panel. - improving 6. Hypertension. - Will start antihypertensives. Will adjust as needed 7. History of Chiari malformation status post surgical intervention 11 years ago. - Patient does state that he does have chronic pain secondary to this as well as migraines. continue on analgesics. 8. Migraines. - Continue with analgesics. 9 . Nausea.vomiting - scopalamine patch added - GI consult following - continue on reglan DISPO/PLAN: continue abx and breathing tx. Monitor for improvement Discussed POC with Dr. Kinsey Result Diagram: 10/29/18 0504 10/29/18 0504 Results 24hrs Laboratory Tests Test 10/28/18 22:00 10/29/18 05:04 10/29/18 09:21 Urine Color YELLOW Urine Clarity CLEAR Urine pH 7.0 Urine Specific [place] 1.012 Urine Ketones NEGATIVE Urine Nitrite NEGATIVE Urine Bilirubin NEGATIVE Urine Urobilinogen NEGATIVE Urine Leukocyte Esterase NEGATIVE Urine Hemoglobin NEGATIVE Urine Random Creatinine 49.90 Urine Random Sodium 86 Urine Glucose 1+ H Urine Total Protein 18.0 H White Blood Count 11.4 H Red Blood Count 4.56 L Hemoglobin 13.4 L Hematocrit 39.7 L Mean Corpuscular Volume 87.1 Mean Corpuscular Hemoglobin 29.4 Mean Corpuscular Hemoglobin Concent 33.8 Red Cell Distribution Width 12.4 Platelet Count 370 Mean Platelet Volume 10.0 Immature Granulocytes % 0.500 H Neutrophils % 85.3 H Lymphocytes % 7.1 L Monocytes % 6.8 Eosinophils % 0.0 Basophils % 0.3 Nucleated Red Blood Cells % 0.0 Immature Granulocytes # 0.060 H Neutrophils # 9.8 H Lymphocytes # 0.8 Monocytes # 0.8 Eosinophils # 0.0 Basophils # 0.0 Nucleated Red Blood Cells # 0.0 Sodium Level 143 Potassium Level 4.1 Chloride Level 109 Carbon Dioxide Level 23 Anion Gap 11 Blood Urea Nitrogen 17 Creatinine 1.16 Est Glomerular Filtrat Rate mL/min > 60 Glucose Level 139 # Hemoglobin A1c 5.4 Calcium Level 9.3 Phosphorus Level 3.2 Magnesium Level 2.4 Total Bilirubin 0.2 Direct Bilirubin 0.00 Indirect Bilirubin 0.2 Aspartate Amino Transf (AST/SGOT) 27 Alanine Aminotransferase (ALT/SGPT) 15 Alkaline Phosphatase 120 Total Protein 8.2 H Albumin 4.3 Globulin 3.90 H Albumin/Globulin Ratio 1.10 Triglycerides Level 49 Cholesterol Level 149 LDL Cholesterol, Calculated 107 HDL Cholesterol 32 Cholesterol/HDL Ratio 4.6 Thyroid Stimulating Hormone (TSH) 0.377 L Free Thyroxine Index 2.63 Thyroxine (T4) 6.7 Triiodothyronine (T3) Uptake 39.2 Lactic Acid Level 1.9 Subjective 24 Hr Interval Summary Free Text/Dictation was with nausea, during interview. does have intermittent vomiting Exam/Review of Systems Exam Vitals Vital Signs Date Temp Pulse Resp B/P (MAP) Pulse Ox O2 O2 Flow FiO2 Time Delivery Rate 10/29/18 88 167/75 17:00 (105) 10/29/18 98.8 17 96 Nasal 14:24 Cannula 10/29/18 3.0 09:16 10/28/18 28 11:54 Intake and Output 10/28/18 10/28/18 10/29/18 1515:00 23:00 07:00 IntakeIntake Total 2300 ml 350 ml 675 ml BalanceBalance 2300 ml 350 ml 675 ml Exam Constitutional: alert, oriented Psych: nl mood/affect Head: normocephalic Neck: supple, non-tender Respiratory: no wheezing Cardiovascular: other (Regular rate tachycardic) Gastrointestinal: soft, non-tender Musculoskeletal: No swelling 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, nl mental status, nl speech Results Results 24hrs Laboratory Tests Test 10/28/18 22:00 10/29/18 05:04 10/29/18 09:21 Urine Color YELLOW Urine Clarity CLEAR Urine pH 7.0 Urine Specific [place] 1.012 Urine Ketones NEGATIVE Urine Nitrite NEGATIVE Urine Bilirubin NEGATIVE Urine Urobilinogen NEGATIVE Urine Leukocyte Esterase NEGATIVE Urine Hemoglobin NEGATIVE Urine Random Creatinine 49.90 Urine Random Sodium 86 Urine Glucose 1+ H Urine Total Protein 18.0 H White Blood Count 11.4 H Red Blood Count 4.56 L Hemoglobin 13.4 L Hematocrit 39.7 L Mean Corpuscular Volume 87.1 Mean Corpuscular Hemoglobin 29.4 Mean Corpuscular Hemoglobin Concent 33.8 Red Cell Distribution Width 12.4 Platelet Count 370 Mean Platelet Volume 10.0 Immature Granulocytes % 0.500 H Neutrophils % 85.3 H Lymphocytes % 7.1 L Monocytes % 6.8 Eosinophils % 0.0 Basophils % 0.3 Nucleated Red Blood Cells % 0.0 Immature Granulocytes # 0.060 H Neutrophils # 9.8 H Lymphocytes # 0.8 Monocytes # 0.8 Eosinophils # 0.0 Basophils # 0.0 Nucleated Red Blood Cells # 0.0 Sodium Level 143 Potassium Level 4.1 Chloride Level 109 Carbon Dioxide Level 23 Anion Gap 11 Blood Urea Nitrogen 17 Creatinine 1.16 Est Glomerular Filtrat Rate mL/min > 60 Glucose Level 139 # Hemoglobin A1c 5.4 Calcium Level 9.3 Phosphorus Level 3.2 Magnesium Level 2.4 Total Bilirubin 0.2 Direct Bilirubin 0.00 Indirect Bilirubin 0.2 Aspartate Amino Transf (AST/SGOT) 27 Alanine Aminotransferase (ALT/SGPT) 15 Alkaline Phosphatase 120 Total Protein 8.2 H Albumin 4.3 Globulin 3.90 H Albumin/Globulin Ratio 1.10 Triglycerides Level 49 Cholesterol Level 149 LDL Cholesterol, Calculated 107 HDL Cholesterol 32 Cholesterol/HDL Ratio 4.6 Thyroid Stimulating Hormone (TSH) 0.377 L Free Thyroxine Index 2.63 Thyroxine (T4) 6.7 Triiodothyronine (T3) Uptake 39.2 Lactic Acid Level 1.9 Medications Medication Current Medications Hydroxychloroquine Sulfate (Plaquenil) 200 mg BID PO Last administered on 10/29/18at 08:24; Admin Dose 200 MG; Start 10/28/18 at 21:00 Fluticasone/ Vilanterol (Breo Ellipta 100-25 Mcg Inh) 1 inh DAILY INH Last administered on 10/29/18at 08:26; Admin Dose 1 INH; Start 10/29/18 at 09:00 Albuterol/ Ipratropium (Duoneb) 3 ml Q4HWA RESP THERAPY HHN Last administered on 10/29/18 15:10; Admin Dose 3 ML; Start 10/28/18 at 17:00 Albuterol/ Ipratropium (Duoneb) 3 ml Q3H RESP THERAPY PRN HHN SHORTNESS OF BREATH Last administered on 10/29/18 03:09; Admin Dose 3 ML; Start 10/28/18 at 15:30 Amlodipine Besylate (Norvasc) 5 mg DAILY PO Last administered on 10/29/18 08:24; Admin Dose 5 MG; Start 10/28/18 at 15:30 Hydralazine HCl (Apresoline) 10 mg Q4H PRN IV sbp>160 Last administered on 17:07; Admin Dose 10 MG; Start 10/28/18 at 15:30 IV Flush (NS 3 ml) 3 ml PER PROTOCOL IV ; Start 10/28/18 at 15:30 Ondansetron HCl (Zofran Inj) 4 mg Q6H PRN IV NAUSEA/VOMITING Last administered on 10/29/18 14:29; Admin Dose 4 MG; Start 10/28/18 at 15:30 Acetaminophen (Tylenol Tab) 650 mg Q6H PRN PO .PAIN 1-3 OR TEMP; Start 10/28/18 at 15:30 Acetaminophen (Tylenol Supp) 650 mg Q6H PRN [place] .PAIN 1-3 OR TEMP; Start 10/28/18 at 15:30 Morphine Sulfate (morphine) 2 mg Q4H PRN IV .SEVERE PAIN 7-10 Last administered on 10/29/18 18:51; Admin Dose 2 MG; Start 10/28/18 at 15:30 Enoxaparin Sodium (Lovenox) 40 mg DAILY SC Last administered on 10/29/18 09:03; Admin Dose 40 MG; Start 10/29/18 at 09:00 Ceftriaxone Sodium 50 ml @ 100 mls/hr Q24H IVPB Last administered on 10/29/18 16:36; Admin Dose 100 MLS/HR; Start 10/28/18 at 17:00 Azithromycin 250 ml @ 250 mls/hr Q24H IVPB Last administered on 10/29/18 17:09; Admin Dose 250 MLS/HR; Start 10/28/18 at 18:00 Ondansetron HCl (Zofran Tab) 4 mg Q6H PRN PO NAUSEA AND/OR VOMITING; Start 10/28/18 at 16:00 Oxycodone HCl (Roxicodone) 30 mg BID PRN PO MODERATE PAIN LEVEL 4-6 Last administered on 10/29/18at 01:58; Admin Dose 30 MG; Start 10/28/18 at 19:00 Tamsulosin HCl (Flomax) 0.4 mg HS PO Last administered on 10/28/18at 21:17; Admin Dose 0.4 MG; Start 10/28/18 at 21:00 Sumatriptan Succinate (Imitrex) 50 mg PRN PRN PO MIGRAINE Last administered on 10/29/18at 02:12; Admin Dose 50 MG; Start 10/28/18 at 19:30 Zolpidem Tartrate (Ambien) 5 mg HS MAY REPEAT X 1 PRN PO INSOMNIA; Start 10/28/18 at 17:30 Oxycodone HCl (Oxycontin) 60 mg Q8 PO Last administered on 10/29/18at 14:19; Admin Dose 60 MG; Start 10/28/18 at 22:00 Clonidine (Catapres) 0.1 mg Q4H PRN PO sbp>160; Start 10/29/18 at 09:00 Metoclopramide HCl (Reglan) 10 mg Q6 IV Last administered on 10/29/18at 18:50; Admin Dose 10 MG; Start 10/29/18 at 18:00 Polyethylene Glycol (Miralax) 17 gm DAILY PO ; Start 10/30/18 at 09:00 Famotidine (Pepcid Iv) 20 mg BID IV ; Start 10/29/18 at 21:00 CHRISTOPHER MOORE NP Oct 29, 2018 19:54
[2018-10-29] MEDS: FAMOTIDINE 20 MG INJ IV SCH (20:45)
[2018-10-29] MEDS: TAMSULOSIN (SR) 0.4 MG CAP PO SCH (20:45)
[2018-10-29] MEDS: ZOLPIDEM 5 MG TAB PO PRN (21:02)
[2018-10-30] MEDS: METOCLOPRAMIDE 10 MG INJ IV SCH ×4 (00:21→17:31)
[2018-10-30 01:59] VITALS: BP 160/74; PULSE 93; RESP 16
[2018-10-30] MEDS: oxyCODONE (CR) 20 MG TAB [oxyCONTIN] PO SCH ×3 (05:40→22:25)
[2018-10-30] MEDS ORDERED: PANTOPRAZOLE 40 MG INJ IV SCH (06:00)
[2018-10-30] MEDS: ALBUTEROL/IPRATROPIUM (NEB) 3 ML AMP HHN SCH (07:39)
[2018-10-30 07:41] VITALS: BP 173/89; PULSE 176; RESP 18
[2018-10-30 07:48] VITALS: BP 176/83; PULSE 96; RESP 18
[2018-10-30] MEDS: SUMATRIPTAN 50 MG TAB PO PRN ×2 (08:00→17:39)
[2018-10-30] MEDS: AMLODIPINE 5 MG TAB PO SCH (08:01)
[2018-10-30] MEDS: HYDROXYCHLOROQUINE 200 MG TAB PO SCH ×2 (08:01→20:23)
[2018-10-30] MEDS: FAMOTIDINE 20 MG INJ IV SCH (08:01)
[2018-10-30] MEDS: ENOXAPARIN 40 MG/0.4 ML SYG SC SCH (08:08)
[2018-10-30 08:32] VITALS: BP 163/85; PULSE 90; RESP 19
[2018-10-30] MEDS: AMLODIPINE 10 MG TAB PO SCH (09:00)
--- NOTE | 2018-10-30 09:01 | PN ---
DATE: 10/30/2018 SUBJECTIVE: The patient was stable overnight. No hemoptysis, hematemesis, hematochezia. OBJECTIVE: VITAL SIGNS: Blood pressure is 176/83, respirations 18, pulse 96, temperature is 98.7. HEENT: Head is normocephalic. NECK: Supple. HEART: Regular rate. LUNGS: Show diminished breath sounds at the base. ABDOMEN: Soft, nontender to palpation without rebound or guarding. EXTREMITIES: Negative for clubbing, cyanosis, no edema. DERMATOLOGIC: No rashes. MUSCULOSKELETAL: No joint effusion. NEUROLOGIC: No change in exam. MEDICATIONS: Reviewed. LABORATORY DATA: Has been reviewed. IMAGING STUDIES: Have been reviewed. ASSESSMENT AND PLAN: 1. Nonoliguric acute kidney injury on top of chronic kidney disease with previous baseline creatinin e around 1.4 mg/dL. Etiology of acute kidney injury is secondary to hemodynamics, possible Bactrim e ffect. The patient's renal function has improved. Continue to monitor. 2. Hypertension. Blood pressure remains elevated. We will adjust blood pressure medication. Start the patient on lisinopril. Increase Norvasc to 10 mg daily. 3. Mineral bone disorder. Monitor calcium and phosphorus levels. 4. Pneumonia. Continue current antibiotic regimen. 5. Chronic obstructive pulmonary disease with exacerbation. Continue medical management. 6. History of lupus. Continue current treatment plan. 7. History of Chiari malformation. 8. Migraines. Continue current medical management. Dictated By: ZAID FISH/NTS Conf#: [id number] DID#: [id number] CC: JENNIFER ACOSTA MD;*EndCC*
--- NOTE | 2018-10-30 11:46 | PN ---
Date/Time of Note Date/Time of Note DATE: 10/30/18 TIME: 11:43 Assessment/Plan VTE Prophylaxis Risk score (from Ns)>0 risk: 2 SCD applied (from Ns): Yes Pharmacological prophylaxis: LMWH Lines/Catheters IV Catheter Type (from [facility]): Peripheral IV Assessment/Plan Hospital Course Assessment and plan 1. Community acquired pneumonia. -Continuing antibiotic treatment. - Patient does report allergy to Levaquin. 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 Suspect COPD with exacerbation. - Patient does have extensive cigarette smoking history. - continue breathing treatments - switched albuterol to levalbuterol due to reported tachycardia - smoking Cessation was advised. - Continue with nicotine patch. 3. Respiratory failure secondary to #1 and #2. - Continue with O2. 4. History of lupus. ' - continue patient's hydroxychloroquine. 5. Renal insufficiency. - monitor renal panel. - improving 6. Hypertension. - Will start antihypertensives. Will adjust as needed 7. History of Chiari malformation status post surgical intervention 11 years ago. - Patient does state that he does have chronic pain secondary to this as well as migraines. continue on analgesics. 8. Migraines. - Continue with analgesics. 9 . Nausea.vomiting - scopalamine patch added - GI consult following - continue on reglan DISPO/PLAN: continue abx and breathing tx. continue antiemetics. appears to be improving. titrate down o2 as tolerated. continue to monitor for further improvement Discussed POC with Dr. Kinsey Result Diagram: 10/30/1823 10/30/18 0523 Results 24hrs Laboratory Tests Test 10/30/18 05:23 White Blood Count 14.0 #H Red Blood Count 4.89 Hemoglobin 14.2 Hematocrit 43.4 Mean Corpuscular Volume 88.8 Mean Corpuscular Hemoglobin 29.0 Mean Corpuscular Hemoglobin Concent 32.7 Red Cell Distribution Width 12.8 Platelet Count 420 H Mean Platelet Volume 9.5 Immature Granulocytes % 0.400 Neutrophils % 67.9 Lymphocytes % 10.8 L Monocytes % 9.6 Eosinophils % 10.4 H Basophils % 0.9 Nucleated Red Blood Cells % 0.0 Immature Granulocytes # 0.060 H Neutrophils # 9.5 H Lymphocytes # 1.5 Monocytes # 1.4 H Eosinophils # 1.5 H Basophils # 0.1 Nucleated Red Blood Cells # 0.0 Sodium Level 146 H Potassium Level 3.9 Chloride Level 108 Carbon Dioxide Level 24 Anion Gap 14 H Blood Urea Nitrogen 17 Creatinine 1.13 Est Glomerular Filtrat Rate mL/min > 60 Glucose Level 121 Calcium Level 9.3 Phosphorus Level 4.3 Magnesium Level 2.4 Subjective 24 Hr Interval Summary Free Text/Dictation reports better breathing but reportedly had fast heart rate this morning from breathing tx Exam/Review of Systems Exam Vitals Vital Signs Date Temp Pulse Resp B/P (MAP) Pulse Ox O2 O2 Flow FiO2 Time Delivery Rate 10/30/18 98.5 90 19 163/85 93 08:32 (111) 10/30/18 Nasal 07:48 Cannula 10/30/18 3.0 07:39 10/28/18 28 11:54 Intake and Output 10/29/18 10/29/18 10/30/18 1515:00 23:00 07:00 IntakeIntake Total 325 ml 760 ml 118 ml BalanceBalance 325 ml 760 ml 118 ml Exam Constitutional: alert, oriented Psych: nl mood/affect Head: normocephalic Neck: supple, non-tender Respiratory: no wheezing Cardiovascular: other (Regular rate tachycardic) Gastrointestinal: soft, non-tender Musculoskeletal: No swelling 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, nl mental status, nl speech Results Results 24hrs Laboratory Tests Test 10/30/18 05:23 White Blood Count 14.0 #H Red Blood Count 4.89 Hemoglobin 14.2 Hematocrit 43.4 Mean Corpuscular Volume 88.8 Mean Corpuscular Hemoglobin 29.0 Mean Corpuscular Hemoglobin Concent 32.7 Red Cell Distribution Width 12.8 Platelet Count 420 H Mean Platelet Volume 9.5 Immature Granulocytes % 0.400 Neutrophils % 67.9 Lymphocytes % 10.8 L Monocytes % 9.6 Eosinophils % 10.4 H Basophils % 0.9 Nucleated Red Blood Cells % 0.0 Immature Granulocytes # 0.060 H Neutrophils # 9.5 H Lymphocytes # 1.5 Monocytes # 1.4 H Eosinophils # 1.5 H Basophils # 0.1 Nucleated Red Blood Cells # 0.0 Sodium Level 146 H Potassium Level 3.9 Chloride Level 108 Carbon Dioxide Level 24 Anion Gap 14 H Blood Urea Nitrogen 17 Creatinine 1.13 Est Glomerular Filtrat Rate mL/min > 60 Glucose Level 121 Calcium Level 9.3 Phosphorus Level 4.3 Magnesium Level 2.4 Medications Medication Current Medications Hydroxychloroquine Sulfate (Plaquenil) 200 mg BID PO Last administered on 10/30/18 08:01; Admin Dose 200 MG; Start 10/28/18 at 21:00 Fluticasone/ Vilanterol (Breo Ellipta 100-25 Mcg Inh) 1 inh DAILY INH Last administered on 10/29/18 08:26; Admin Dose 1 INH; Start 10/29/18 at 09:00 Hydralazine HCl (Apresoline) 10 mg Q4H PRN IV sbp>160 Last administered on 10/29/18 17:07; Admin Dose 10 MG; Start 10/28/18 at 15:30 IV Flush (NS 3 ml) 3 ml PER PROTOCOL IV ; Start 10/28/18 at 15:30 Ondansetron HCl (Zofran Inj) 4 mg Q6H PRN IV NAUSEA/VOMITING Last administered on 10/29/18 20:45; Admin Dose 4 MG; Start 10/28/18 at 15:30 Acetaminophen (Tylenol Tab) 650 mg Q6H PRN PO .PAIN 1-3 OR TEMP; Start 10/28/18 at 15:30 Acetaminophen (Tylenol Supp) 650 mg Q6H PRN [place] .PAIN 1-3 OR TEMP; Start 10/28/18 at 15:30 Morphine Sulfate (morphine) 2 mg Q4H PRN IV .SEVERE PAIN 7-10 Last administered on 10/29/18 18:51; Admin Dose 2 MG; Start 10/28/18 at 15:30 Enoxaparin Sodium (Lovenox) 40 mg DAILY SC Last administered on 10/30/18 08:08; Admin Dose 40 MG; Start 10/29/18 at 09:00 Ceftriaxone Sodium 50 ml @ 100 mls/hr Q24H IVPB Last administered on 10/29/18 16:36; Admin Dose 100 MLS/HR; Start 10/28/18 at 17:00 Azithromycin 250 ml @ 250 mls/hr Q24H IVPB Last administered on 10/29/18 17:09; Admin Dose 250 MLS/HR; Start 10/28/18 at 18:00 Ondansetron HCl (Zofran Tab) 4 mg Q6H PRN PO NAUSEA AND/OR VOMITING; Start 10/28/18 at 16:00 Oxycodone HCl (Roxicodone) 30 mg BID PRN PO MODERATE PAIN LEVEL 4-6 Last administered on 10/29/18at 01:58; Admin Dose 30 MG; Start 10/28/18 at 19:00 Tamsulosin HCl (Flomax) 0.4 mg HS PO Last administered on 10/29/18 20:45; Admin Dose 0.4 MG; Start 10/28/18 at 21:00 Sumatriptan Succinate (Imitrex) 50 mg PRN PRN PO MIGRAINE Last administered on 10/30/18 08:00; Admin Dose 50 MG; Start 10/28/18 at 19:30 Zolpidem Tartrate (Ambien) 5 mg HS MAY REPEAT X 1 PRN PO INSOMNIA Last administered on 10/29/18 21:02; Admin Dose 5 MG; Start 10/28/18 at 17:30 Oxycodone HCl (Oxycontin) 60 mg Q8 PO Last administered on 10/30/18 05:40; Admin Dose 60 MG; Start 10/28/18 at 22:00 Clonidine (Catapres) 0.1 mg Q4H PRN PO sbp>160 Last administered on 10/30/18 08:00; Admin Dose 0.1 MG; Start 10/29/18 at 09:00 Metoclopramide HCl (Reglan) 10 mg Q6 IV Last administered on 10/30/18 05:40; Admin Dose 10 MG; Start 10/29/18 at 18:00 Polyethylene Glycol (Miralax) 17 gm DAILY PO ; Start 10/30/18 at 09:00 Famotidine (Pepcid Iv) 20 mg BID IV Last administered on 10/30/18 08:01; Admin Dose 20 MG; Start 10/29/18 at 21:00 Amlodipine Besylate (Norvasc) 10 mg DAILY PO ; Start 10/30/18 at 09:00 Lisinopril (Zestril) 10 mg DAILY PO ; Start 10/30/18 at 09:00 Levalbuterol (Xopenex Neb) 1.25 mg Q4H RESP THERAPY PRN HHN sob; Start 10/30/18 at 12:00; Status UNV CHRISTOPHER MOORE NP Oct 30, 2018 11:46
[2018-10-30] MEDS ORDERED: LEVALBUTEROL (NEB) 1.25 MG/0.5 ML AMP HHN PRN (12:00)
--- NOTE | 2018-10-30 12:50 | PN ---
Date/Time of Note Date/Time of Note DATE: 10/30/18 TIME: 12:25 Assessment/Plan VTE Prophylaxis Risk score (from Ns)>0 risk: 2 SCD applied (from Nsg): Yes Pharmacological prophylaxis: other (scds) Lines/Catheters IV Catheter Type (from Rust): Peripheral IV Assessment/Plan Hospital Course Summary Assessment and Plan: Assessment: Chronic intermittent nausea/vomiting -R/o GI etiology vs 2/2 migraines vs other Community-acquired pneumonia Normocytic anemia, mild DOMO- improved History of COPD History of lupus History of Chiari malformation -S/p surgical intervention 11 years ago -Migraines since surgery 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 Kent Subjective: Course reviewed with nursing staff Patient interviewed and examined All labs, imaging and other results reviewed The patient states he is feeling much better No c/o n/v at this time. Pt is currently on O2 at 2-3 liters satting 88-91 % Discussed plan to first treat underlying pna- once stablized EGD can be completed eighter as in-pt or out-pt Pt verbalized understanding and is agreeable. PHYSICAL EXAMINATION: GENERAL: Well developed, well nourished, alert & oriented x 3, in no acute distress SKIN: Facial erythema HEAD: Normocephalic, atraumatic, no tenderness. EYES: Pupils equal reactive to light and accommodation, no discharge. EARS/NOSE AND THROAT: Ears normal, nose normal, NECK: Supple, no masses. CHEST: Inspection within normal limits. CARDIOVASCULAR: Heart: Regular rate and rhythm RESPIRATORY: Lungs clear to auscultation and percussion, no wheezing, no rubs GASTROINTESTINAL AND LIVER: Abdomen: Soft, non tenderness, non-distended, no hernias, no masses, no organomegaly, no ascites, no guarding, no rebound tenderness, normoactive bowel sounds. Rectal: Deferred. EXTREMITIES: No cyanosis, clubbing or edema. Result Diagram: 7/4/19 0523 7/4/19 0523 Results 24hrs Laboratory Tests Test 10/30/18 05:23 White Blood Count 14.0 #H Red Blood Count 4.89 Hemoglobin 14.2 Hematocrit 43.4 Mean Corpuscular Volume 88.8 Mean Corpuscular Hemoglobin 29.0 Mean Corpuscular Hemoglobin Concent 32.7 Red Cell Distribution Width 12.8 Platelet Count 420 H Mean Platelet Volume 9.5 Immature Granulocytes % 0.400 Neutrophils % 67.9 Lymphocytes % 10.8 L Monocytes % 9.6 Eosinophils % 10.4 H Basophils % 0.9 Nucleated Red Blood Cells % 0.0 Immature Granulocytes # 0.060 H Neutrophils # 9.5 H Lymphocytes # 1.5 Monocytes # 1.4 H Eosinophils # 1.5 H Basophils # 0.1 Nucleated Red Blood Cells # 0.0 Sodium Level 146 H Potassium Level 3.9 Chloride Level 108 Carbon Dioxide Level 24 Anion Gap 14 H Blood Urea Nitrogen 17 Creatinine 1.13 Est Glomerular Filtrat Rate mL/min > 60 Glucose Level 121 Calcium Level 9.3 Phosphorus Level 4.3 Magnesium Level 2.4 Exam/Review of Systems Exam Vitals Vital Signs Date Temp Pulse Resp B/P (MAP) Pulse Ox O2 O2 Flow FiO2 Time Delivery Rate 10/30/18 98.5 90 19 163/85 93 08:32 (111) 10/30/18 Nasal 07:48 Cannula 10/30/18 3.0 07:39 10/28/18 28 11:54 Intake and Output 10/29/18 10/29/18 10/30/18 1515:00 23:00 07:00 IntakeIntake Total 325 ml 760 ml 118 ml BalanceBalance 325 ml 760 ml 118 ml Results Results 24hrs Laboratory Tests Test 10/30/18 05:23 White Blood Count 14.0 #H Red Blood Count 4.89 Hemoglobin 14.2 Hematocrit 43.4 Mean Corpuscular Volume 88.8 Mean Corpuscular Hemoglobin 29.0 Mean Corpuscular Hemoglobin Concent 32.7 Red Cell Distribution Width 12.8 Platelet Count 420 H Mean Platelet Volume 9.5 Immature Granulocytes % 0.400 Neutrophils % 67.9 Lymphocytes % 10.8 L Monocytes % 9.6 Eosinophils % 10.4 H Basophils % 0.9 Nucleated Red Blood Cells % 0.0 Immature Granulocytes # 0.060 H Neutrophils # 9.5 H Lymphocytes # 1.5 Monocytes # 1.4 H Eosinophils # 1.5 H Basophils # 0.1 Nucleated Red Blood Cells # 0.0 Sodium Level 146 H Potassium Level 3.9 Chloride Level 108 Carbon Dioxide Level 24 Anion Gap 14 H Blood Urea Nitrogen 17 Creatinine 1.13 Est Glomerular Filtrat Rate mL/min > 60 Glucose Level 121 Calcium Level 9.3 Phosphorus Level 4.3 Magnesium Level 2.4 Medications Medication Current Medications Hydroxychloroquine Sulfate (Plaquenil) 200 mg BID PO Last administered on 10/30/18 08:01; Admin Dose 200 MG; Start 10/28/18 at 21:00 Fluticasone/ Vilanterol (Breo Ellipta 100-25 Mcg Inh) 1 inh DAILY INH Last administered on 10/29/18 08:26; Admin Dose 1 INH; Start 10/29/18 at 09:00 Hydralazine HCl (Apresoline) 10 mg Q4H PRN IV sbp>160 Last administered on 10/29/18 17:07; Admin Dose 10 MG; Start 10/28/18 at 15:30 IV Flush (NS 3 ml) 3 ml PER PROTOCOL IV ; Start 10/28/18 at 15:30 Ondansetron HCl (Zofran Inj) 4 mg Q6H PRN IV NAUSEA/VOMITING Last administered on 10/29/18 20:45; Admin Dose 4 MG; Start 10/28/18 at 15:30 Acetaminophen (Tylenol Tab) 650 mg Q6H PRN PO .PAIN 1-3 OR TEMP; Start 10/28/18 at 15:30 Acetaminophen (Tylenol Supp) 650 mg Q6H PRN [place] .PAIN 1-3 OR TEMP; Start 10/28/18 at 15:30 Morphine Sulfate (morphine) 2 mg Q4H PRN IV .SEVERE PAIN 7-10 Last administered on 10/29/18 18:51; Admin Dose 2 MG; Start 10/28/18 at 15:30 Enoxaparin Sodium (Lovenox) 40 mg DAILY SC Last administered on 10/30/18 08:08; Admin Dose 40 MG; Start 10/29/18 at 09:00 Ceftriaxone Sodium 50 ml @ 100 mls/hr Q24H IVPB Last administered on 10/29/18 16:36; Admin Dose 100 MLS/HR; Start 10/28/18 at 17:00 Azithromycin 250 ml @ 250 mls/hr Q24H IVPB Last administered on 10/29/18 17:09; Admin Dose 250 MLS/HR; Start 10/28/18 at 18:00 Ondansetron HCl (Zofran Tab) 4 mg Q6H PRN PO NAUSEA AND/OR VOMITING; Start 10/28/18 at 16:00 Oxycodone HCl (Roxicodone) 30 mg BID PRN PO MODERATE PAIN LEVEL 4-6 Last administered on 10/29/18 01:58; Admin Dose 30 MG; Start 10/28/18 at 19:00 Tamsulosin HCl (Flomax) 0.4 mg HS PO Last administered on 10/29/18 20:45; Admin Dose 0.4 MG; Start 10/28/18 at 21:00 Sumatriptan Succinate (Imitrex) 50 mg PRN PRN PO MIGRAINE Last administered on 10/30/18 08:00; Admin Dose 50 MG; Start 10/28/18 at 19:30 Zolpidem Tartrate (Ambien) 5 mg HS MAY REPEAT X 1 PRN PO INSOMNIA Last administered on 10/29/18 21:02; Admin Dose 5 MG; Start 10/28/18 at 17:30 Oxycodone HCl (Oxycontin) 60 mg Q8 PO Last administered on 10/30/18 05:40; Admin Dose 60 MG; Start 10/28/18 at 22:00 Clonidine (Catapres) 0.1 mg Q4H PRN PO sbp>160 Last administered on 10/30/18 0 8:00; Admin Dose 0.1 MG; Start 10/29/18 at 09:00 Metoclopramide HCl (Reglan) 10 mg Q6 IV Last administered on 10/30/18 05:40; Admin Dose 10 MG; Start 10/29/18 at 18:00 Polyethylene Glycol (Miralax) 17 gm DAILY PO ; Start 10/30/18 at 09:00 Famotidine (Pepcid Iv) 20 mg BID IV Last administered on 10/30/18 08:01; Admin Dose 20 MG; Start 10/29/18 at 21:00 Amlodipine Besylate (Norvasc) 10 mg DAILY PO ; Start 10/30/18 at 09:00 Lisinopril (Zestril) 10 mg DAILY PO ; Start 10/30/18 at 09:00 Levalbuterol (Xopenex Neb) 1.25 mg Q4H RESP THERAPY PRN HHN sob; Start 10/30/18 at 12:00 HERNAN AYALA Oct 30, 2018 12:49
[2018-10-30] MEDS: POLYETHYLENE GLYCOL 17 GM PACKET PO SCH (13:17)
[2018-10-30] MEDS: LISINOPRIL 10 MG TAB PO SCH (13:18)
[2018-10-30] MEDS: FLUTICASONE/VILANTEROL 100-25 INH SCH (13:19)
[2018-10-30 14:57] VITALS: BP 159/92; PULSE 92; RESP 19
[2018-10-30] MEDS: CEFTRIAXONE 2 GM/50 ML (PMX) 50 ML IVPB SCH (17:31)
[2018-10-30] MEDS: AZITHROMYCIN 500MG/NS (PMX) 250 ML IVPB SCH (18:30)
--- NOTE | 2018-10-30 19:08 | CONS ---
Assessment/Plan Assessment/Plan Hospital Course (Demo Recall) ID PROGRESS NOTE CURRENT ABX: DAY #3 =>CEFTRIAXONE + AZITH 10/30/18 0523 10/30/18 0523 24H INTERVAL SUMMARY * In bed resting post pain meds for headache, no fever, VSS, 3 l/min via n/c saturating 92-94% without dyspnea * WBC rising -> s/p DECADRON IV 10/28/18 DIAGNOSTIC IMAGING * 10/30/18 CXR: Atelectasis versus minimal infiltrates in the perihilar lower lungs.Scattered atelectasis in both lungs. Diffuse mild interstitial prominence in both lungs. Interstitial prominence could be chronic or reflect mild interstitial edema. Hypoinflated lungs with an elevated right hemidiaphragm. MICRO * 10/28/18 BCX (-) * 10/28/18 (-)MRSA * 10/29/18 (-) INFLUENZA A/B PHYSICAL EXAMINATION: GENERAL: VSS, NAD HEENT: AT, NC, NECK: Supple, CHEST: Rise symmetrical HEART: Pulse RRR ABDOMEN: Deferred EXTREMITIES: Warm, dry SKIN: No rash, no diaphoresis ID ASSESSMENT 62 yo M admit with: 1. SIRS w/WBC rising -> s/p DECADRON IV 10/28/18 2. Community-acquired pneumonia/COPD exacerbation 3. Acute kidney injury with improving kidney function 4. History of lupus 5. Hypertension - QUERY HTN heart disease 6. Migraine headaches status post surgical intervention for Ciari malformation 7. Chronic intermittent nausea/vomiting -R/o GI etiology vs 2/2 migraines vs other = GI on the case 8. Chronic tobaccoism=> quit smoking 8 weeks ago 9. Hx of Anderson-Eduardo syndrome w/Levaquin = avoid Quinolones ABX ALLERGIES: LEVAQUIN INVASIVES: PIV CURRENT ABX: DAY #3 =>Ceftriaxone + Azith ID RECOMMENDATIONS/PLAN: 1. Continue current ABX - HTN management per primary - checking BNP in am 2. Will continue to follow . Consultation Date/Type/Reason Admit Date/Time Oct 28, 2018 at 13:40 Initial Consult Date 10/29/18 Requesting Provider: CHRISTOPHER MOORE NP Date/Time of Note DATE: 10/30/18 TIME: 19:06 Exam/Review of Systems Exam Vitals Vital Signs Date Temp Pulse Resp B/P (MAP) Pulse Ox O2 O2 Flow FiO2 Time Delivery Rate 10/30/18 98.6 92 19 159/92 92 14:57 (114) 10/30/18 3.0 13:37 10/30/18 Nasal 08:30 Cannula 10/28/18 28 11:54 Intake and Output 10/29/18 10/29/18 10/30/18 1515:00 23:00 07:00 IntakeIntake Total 325 ml 760 ml 118 ml BalanceBalance 325 ml 760 ml 118 ml Results Result Diagram: 10/30/18 0510/30/18 0523 Results 24hrs Laboratory Tests Test 10/30/18 05:23 White Blood Count 14.0 #H Red Blood Count 4.89 Hemoglobin 14.2 Hematocrit 43.4 Mean Corpuscular Volume 88.8 Mean Corpuscular Hemoglobin 29.0 Mean Corpuscular Hemoglobin Concent 32.7 Red Cell Distribution Width 12.8 Platelet Count 420 H Mean Platelet Volume 9.5 Immature Granulocytes % 0.400 Neutrophils % 67.9 Lymphocytes % 10.8 L Monocytes % 9.6 Eosinophils % 10.4 H Basophils % 0.9 Nucleated Red Blood Cells % 0.0 Immature Granulocytes # 0.060 H Neutrophils # 9.5 H Lymphocytes # 1.5 Monocytes # 1.4 H Eosinophils # 1.5 H Basophils # 0.1 Nucleated Red Blood Cells # 0.0 Sodium Level 146 H Potassium Level 3.9 Chloride Level 108 Carbon Dioxide Level 24 Anion Gap 14 H Blood Urea Nitrogen 17 Creatinine 1.13 Est Glomerular Filtrat Rate mL/min > 60 Glucose Level 121 Calcium Level 9.3 Phosphorus Level 4.3 Magnesium Level 2.4 Medications Medication Current Medications Hydroxychloroquine Sulfate (Plaquenil) 200 mg BID PO Last administered on 10/30/18at 08:01; Admin Dose 200 MG; Start 10/28/18 at 21:00 Fluticasone/ Vilanterol (Breo Ellipta 100-25 Mcg Inh) 1 inh DAILY INH Last administered on 10/30/18at 13:19; Admin Dose 1 INH; Start 10/29/18 at 09:00 Hydralazine HCl (Apresoline) 10 mg Q4H PRN IV sbp>160 Last administered on 10/29/18at 17:07; Admin Dose 10 MG; Start 10/28/18 at 15:30 IV Flush (NS 3 ml) 3 ml PER PROTOCOL IV ; Start 10/28/18 at 15:30 Ondansetron HCl (Zofran Inj) 4 mg Q6H PRN IV NAUSEA/VOMITING Last administered on 10/29/18 20:45; Admin Dose 4 MG; Start 10/28/18 at 15:30 Acetaminophen (Tylenol Supp) 650 mg Q6H PRN NE .PAIN 1-3 OR TEMP; Start 10/28/18 at 15:30 Morphine Sulfate (morphine) 2 mg Q4H PRN IV .SEVERE PAIN 7-10 Last administered on 10/29/18 18:51; Admin Dose 2 MG; Start 10/28/18 at 15:30 Enoxaparin Sodium (Lovenox) 40 mg DAILY SC Last administered on 10/30/18 08:08; Admin Dose 40 MG; Start 10/29/18 at 09:00 Ceftriaxone Sodium 50 ml @ 100 mls/hr Q24H IVPB Last administered on 10/30/18 17:31; Admin Dose 100 MLS/HR; Start 10/28/18 at 17:00 Azithromycin 250 ml @ 250 mls/hr Q24H IVPB Last administered on 10/30/18 18:30; Admin Dose 250 MLS/HR; Start 10/28/18 at 18:00 Ondansetron HCl (Zofran Tab) 4 mg Q6H PRN PO NAUSEA AND/OR VOMITING; Start 10/28/18 at 16:00 Oxycodone HCl (Roxicodone) 30 mg BID PRN PO MODERATE PAIN LEVEL 4-6 Last administered on 10/29/18 01:58; Admin Dose 30 MG; Start 10/28/18 at 19:00 Tamsulosin HCl (Flomax) 0.4 mg HS PO Last administered on 10/29/18 20:45; Admin Dose 0.4 MG; Start 10/28/18 at 21:00 Sumatriptan Succinate (Imitrex) 50 mg PRN PRN PO MIGRAINE Last administered on 10/30/18 17:39; Admin Dose 50 MG; Start 10/28/18 at 19:30 Zolpidem Tartrate (Ambien) 5 mg HS MAY REPEAT X 1 PRN PO INSOMNIA Last administered on 10/29/18 21:02; Admin Dose 5 MG; Start 10/28/18 at 17:30 Oxycodone HCl (Oxycontin) 60 mg Q8 PO Last administered on 10/30/18 13:18; Admin Dose 60 MG; Start 10/28/18 at 22:00 Clonidine (Catapres) 0.1 mg Q4H PRN PO sbp>160 Last administered on 10/30/18 08:00; Admin Dose 0.1 MG; Start 10/29/18 at 09:00 Metoclopramide HCl (Reglan) 10 mg Q6 IV Last administered on 10/30/18at 17:31; Admin Dose 10 MG; Start 10/29/18 at 18:00 Polyethylene Glycol (Miralax) 17 gm DAILY PO Last administered on 10/30/18at 13:17; Admin Dose 17 GM; Start 10/30/18 at 09:00 Amlodipine Besylate (Norvasc) 10 mg DAILY PO ; Start 10/30/18 at 09:00 Lisinopril (Zestril) 10 mg DAILY PO Last administered on 10/30/18at 13:18; Admin Dose 10 MG; Start 10/30/18 at 09:00 Levalbuterol (Xopenex Neb) 1.25 mg Q4H RESP THERAPY PRN HHN sob; Start 10/30/18 at 12:00 Famotidine (Pepcid) 20 mg BID PO ; Start 10/30/18 at 21:00 ILAN MEANS NP Oct 30, 2018 19:08
[2018-10-30 19:48] VITALS: BP 138/77; PULSE 86; RESP 15
[2018-10-30] MEDS: TAMSULOSIN (SR) 0.4 MG CAP PO SCH (20:24)
[2018-10-30] MEDS: FAMOTIDINE 20 MG TAB PO SCH (20:24)
[2018-10-30] MEDS: ZOLPIDEM 5 MG TAB PO PRN (21:21)
[2018-10-31] VITALS (7 sets, daily range): BP systolic 124–158; BP diastolic 73–91; PULSE 85–106; RESP 16–18
[2018-10-31] MEDS: METOCLOPRAMIDE 10 MG INJ IV SCH ×4 (00:27→18:20)
[2018-10-31] MEDS: oxyCODONE (CR) 20 MG TAB [oxyCONTIN] PO SCH ×3 (05:46→21:29)
--- NOTE | 2018-10-31 08:48 | PN ---
DATE: 10/31/2018 SUBJECTIVE: The patient is stable, no events overnight. OBJECTIVE: VITAL SIGNS: Blood pressure is 158/74, pulse 98, respirations 18, temperature 97.7. HEENT: Head is normocephalic. NECK: Supple. HEART: Regular rate. LUNGS: Show diminished breath sounds at the base. ABDOMEN: Soft, nontender to palpation without rebound or guarding. EXTREMITIES: Negative for clubbing, cyanosis, no edema. DERMATOLOGIC: No rashes. MUSCULOSKELETAL: No joint effusion. NEUROLOGIC: No change in exam. MEDICATIONS: Reviewed. LABORATORY DATA: Reviewed. ASSESSMENT AND PLAN: 1. Nonoliguric acute kidney injury on top of chronic kidney disease with previous baseline creatinin e around 1.4 mg/dL. Etiology of acute kidney injury is secondary to hemodynamics, possible Bactrim e ffect. The patient's renal function has improved, currently below previous baseline. We will contin ue to monitor. 2. Hypertension. Blood pressure medications were adjusted. Blood pressure is improved. Continue c urrent regimen. 3. Mineral bone disorder, monitor calcium and phosphorus levels. 4. Pneumonia. Continue current antibiotic regimen. 5. Chronic obstructive pulmonary disease exacerbation. Continue medical management. 6. History of lupus. Continue current treatment plan. 7. History of Chiari malformation. 8. Migraines. Continue current medical management. Dictated By: ZAID BISHOP DO NR/NTS Conf#: [id number] DID#: [id number] CC: JENNIFER ACOSTA MD; RACHEAL MORTENSEN MD;*EndCC*
[2018-10-31] MEDS: FLUTICASONE/VILANTEROL 100-25 INH SCH (08:51)
[2018-10-31] MEDS: POLYETHYLENE GLYCOL 17 GM PACKET PO SCH (08:51)
[2018-10-31] MEDS: FAMOTIDINE 20 MG TAB PO SCH ×2 (08:53→21:28)
[2018-10-31] MEDS: HYDROXYCHLOROQUINE 200 MG TAB PO SCH ×2 (08:53→21:28)
[2018-10-31] MEDS: AMLODIPINE 10 MG TAB PO SCH (08:54)
[2018-10-31] MEDS: LISINOPRIL 10 MG TAB PO SCH (08:54)
[2018-10-31] MEDS: ENOXAPARIN 40 MG/0.4 ML SYG SC SCH (10:56)
--- NOTE | 2018-10-31 11:20 | RADRPT ---
Echocardiogram Report Patient Name: MAXIMILIANO FAUSTINPatient ID: [id number] : 1955 (62y 11m)Study Date: 10/29/2018 7:05:00 AM Gender: MAccession #: [id number] Tech: [employer] [facility] Location: 8736 Ref.Physician: CHRISTOPHER MOORE Height(Cm): BSA: Weight(Kg): Quality: AdequateOrder Physician: CHRISTOPHER MOORE Account #: Procedures: Echocardiographic Report: Transthoracic echocardiogram with complete 2D, M-Mode, and doppler examination. Indications: Congestive Heart Failure. Measurements: 2D/M Mode Doppler Measurement Value Normal Range Measurement Value Normal Range LVIDd 2D 6.4 [ 4.2 - 5.8 ] cm AV Peak Delbert 1.8 [ 100.0 - 170.0 ] cm/sec LVIDs 2D 3.2 [ 2.5 - 4.0 ] cm AV Peak PG 13.0 [ 2.0 - 9.0 ] mmHg LVPWd 2D 1.0 [ 0.6 - 1.0 ] cm LVOT Peak Delbert 1.4 [ 70.0 - 110.0 ] cm/sec IVSd 2D 1.0 [ 0.6 - 1.0 ] cm LVOT Peak PG 7.0 [ 2.0 - 6.0 ] mmHg AoR Diam 2D 3.0 [ 2.6 - 3.4 ] cm MV E Peak Delbert 1.0 [ 60.0 - 130.0 ] cm/sec EDV 2D 208.0 [ 62.0 - 150.0 ] ml MV A Peak Delbert 1.3 [ 100.0 - 120.0 ] cm/sec ESV 2D 40.3 [ 21.0 - 61.0 ] ml MV E/A 0.8 [ 0.8 - 1.5 ] ratio EF 2D 80.6 [ 52.0 - 72.0 ] percent MV Decel Time 151 [ 104 - 258 ] msec LA Dimen 2D 3.8 [ 3.0 - 4.0 ] cm Lat E` Delbert 0.1 [ 10.0 - 15.0 ] cm/sec Lateral E/E` 7.3 [ 1.0 - 2.0 ] ratio MV E/A 0.8 [ 0.8 - 1.5 ] ratio TR Peak Delbert 2.7 [ 100.0 - 280.0 ] cm/sec TR Peak PG 30.0 mmHg RVSP 33.0 [ 10.0 - 36.0 ] mmHg RA Pressure 3.0 mmHg Findings: Left Ventricle: Normal left ventricular systolic function. Normal left ventricular cavity size. Normal left ventricular wall thickness. Ejection fraction is visually estimated at 55-60 %. Tissue Doppler/Mitral Doppler indices are consistent with impaired relaxation (Stage I diastolic dysfunction). Right Ventricle: Normal right ventricular size. Normal right ventricular systolic function. Left Atrium: The left atrium is normal in size. Right Atrium: The right atrium is normal in size. Mitral Valve: Normal appearance and function of the mitral valve with trace physiologic regurgitation. Aortic Valve: No significant aortic stenosis or insufficiency. Aortic cusps appear mildly calcified. Tricuspid Valve: Normal appearance and function of the tricuspid valve with trace physiologic regurgitation. Normal right ventricular systolic pressure. Pulmonic Valve: Pulmonic valve not well visualized. Pericardium: Normal pericardium with no significant pericardial effusion. Aorta: Normal aortic root. IVC: Normal size and normal respiratory collapse consistent with normal right atrial pressure. Conclusions: Normal left ventricular systolic function. Normal left ventricular cavity size. Normal left ventricular wall thickness. Ejection fraction is visually estimated at 55-60 %. Tissue Doppler/Mitral Doppler indices are consistent with impaired relaxation (Stage I diastolic dysfunction). ). Normal appearance and function of the mitral valve with trace physiologic regurgitation. Normal appearance and function of the tricuspid valve with trace physiologic regurgitation. Normal right ventricular systolic pressure. No significant aortic stenosis or insufficiency. Aortic cusps appear mildly calcified. Electronically Signed By: Mu Palma 2018-10-31 11:19:25 PDT
--- NOTE | 2018-10-31 13:09 | PN ---
Date/Time of Note Date/Time of Note DATE: 10/31/18 TIME: 13:06 Assessment/Plan VTE Prophylaxis Risk score (from Ns)>0 risk: 3 SCD applied (from Ns): Yes Pharmacological prophylaxis: LMWH Lines/Catheters IV Catheter Type (from Nrs): Saline Lock Assessment/Plan Hospital Course Assessment and plan 1. Community acquired pneumonia. -Continuing antibiotic treatment. - Patient does report allergy to Levaquin. 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 Suspect COPD with exacerbation. - Patient does have extensive cigarette smoking history. - continue breathing treatments - switched albuterol to levalbuterol due to reported tachycardia - smoking Cessation was advised. - Continue with nicotine patch. 3. Respiratory failure secondary to #1 and #2. - Continue with O2. 4. History of lupus. ' - continue patient's hydroxychloroquine. 5. Renal insufficiency. - monitor renal panel. - improving 6. Hypertension. - Will start antihypertensives. Will adjust as needed 7. History of Chiari malformation status post surgical intervention 11 years ago. - Patient does state that he does have chronic pain secondary to this as well as migraines. continue on analgesics. 8. Migraines. - Continue with analgesics. 9 . Nausea.vomiting - improved - scopalamine patch added - GI consult following - continue on reglan DISPO/PLAN: continue abx and breathing tx. appears to be improving. continue IS. titrate off o2 and ambulate. echo with EF 55-60%. DC planning in progress. Discussed POC with Dr. Kinsey Result Diagram: 10/31/18 0434 10/31/18 0435 Results 24hrs Laboratory Tests Test 10/31/18 04:34 10/31/18 04:35 White Blood Count 15.5 H Red Blood Count 4.90 Hemoglobin 14.2 Hematocrit 43.0 Mean Corpuscular Volume 87.8 Mean Corpuscular Hemoglobin 29.0 Mean Corpuscular Hemoglobin Concent 33.0 Red Cell Distribution Width 12.9 Platelet Count 428 H Mean Platelet Volume 9.7 Immature Granulocytes % 0.300 Neutrophils % 50.9 Lymphocytes % 12.6 L Monocytes % 9.7 Eosinophils % 25.1 H Basophils % 1.4 Nucleated Red Blood Cells % 0.0 Immature Granulocytes # 0.050 H Neutrophils # 7.9 H Lymphocytes # 2.0 Monocytes # 1.5 H Eosinophils # 3.9 H Basophils # 0.2 H Nucleated Red Blood Cells # 0.0 Sodium Level 144 Potassium Level 4.0 Chloride Level 108 Carbon Dioxide Level 24 Anion Gap 12 Blood Urea Nitrogen 21 H Creatinine 1.15 Est Glomerular Filtrat Rate mL/min > 60 Glucose Level 97 Calcium Level 9.0 B-Type Natriuretic Peptide 831 H Subjective 24 Hr Interval Summary Free Text/Dictation Patient reports better breathing at this time. Reports no nausea during interview. Exam/Review of Systems Exam Vitals Vital Signs Date Temp Pulse Resp B/P (MAP) Pulse Ox O2 O2 Flow FiO2 Time Delivery Rate 10/31/18 Nasal 3.0 08:11 Cannula 10/31/18 97.7 98 18 158/74 91 07:50 (102) 10/28/18 28 11:54 Intake and Output 10/30/18 10/30/18 10/31/18 1515:00 23:00 07:00 IntakeIntake Total 540 ml BalanceBalance 540 ml Exam Constitutional: alert, oriented Psych: nl mood/affect Head: normocephalic Neck: supple, non-tender Respiratory: no wheezing Cardiovascular: other (Regular rate tachycardic) Gastrointestinal: soft, non-tender Musculoskeletal: No swelling Neurological: FORMER HAND II-XII intact, nl mental status, nl speech Results Results 24hrs Laboratory Tests Test 10/31/18 04:34 10/31/18 04:35 White Blood Count 15.5 H Red Blood Count 4.90 Hemoglobin 14.2 Hematocrit 43.0 Mean Corpuscular Volume 87.8 Mean Corpuscular Hemoglobin 29.0 Mean Corpuscular Hemoglobin Concent 33.0 Red Cell Distribution Width 12.9 Platelet Count 428 H Mean Platelet Volume 9.7 Immature Granulocytes % 0.300 Neutrophils % 50.9 Lymphocytes % 12.6 L Monocytes % 9.7 Eosinophils % 25.1 H Basophils % 1.4 Nucleated Red Blood Cells % 0.0 Immature Granulocytes # 0.050 H Neutrophils # 7.9 H Lymphocytes # 2.0 Monocytes # 1.5 H Eosinophils # 3.9 H Basophils # 0.2 H Nucleated Red Blood Cells # 0.0 Sodium Level 144 Potassium Level 4.0 Chloride Level 108 Carbon Dioxide Level 24 Anion Gap 12 Blood Urea Nitrogen 21 H Creatinine 1.15 Est Glomerular Filtrat Rate mL/min > 60 Glucose Level 97 Calcium Level 9.0 B-Type Natriuretic Peptide 831 H Medications Medication Current Medications Hydroxychloroquine Sulfate (Plaquenil) 200 mg BID PO Last administered on 10/31/18 08:53; Admin Dose 200 MG; Start 10/28/18 at 21:00 Fluticasone/ Vilanterol (Breo Ellipta 100-25 Mcg Inh) 1 inh DAILY INH Last administered on 10/31/18 08:51; Admin Dose 1 INH; Start 10/29/18 at 09:00 Hydralazine HCl (Apresoline) 10 mg Q4H PRN IV sbp>160 Last administered on 10/29/18 17:07; Admin Dose 10 MG; Start 10/28/18 at 15:30 IV Flush (NS 3 ml) 3 ml PER PROTOCOL IV ; Start 10/28/18 at 15:30 Ondansetron HCl (Zofran Inj) 4 mg Q6H PRN IV NAUSEA/VOMITING Last administered on 10/29/18 20:45; Admin Dose 4 MG; Start 10/28/18 at 15:30 Acetaminophen (Tylenol Supp) 650 mg Q6H PRN [place] .PAIN 1-3 OR TEMP; Start 10/28/18 at 15:30 Morphine Sulfate (morphine) 2 mg Q4H PRN IV .SEVERE PAIN 7-10 Last administered on 10/29/18 18:51; Admin Dose 2 MG; Start 10/28/18 at 15:30 Enoxaparin Sodium (Lovenox) 40 mg DAILY SC Last administered on 10/31/18 10:56; Admin Dose 40 MG; Start 10/29/18 at 09:00 Ceftriaxone Sodium 50 ml @ 100 mls/hr Q24H IVPB Last administered on 10/30/18 17:31; Admin Dose 100 MLS/HR; Start 10/28/18 at 17:00 Azithromycin 250 ml @ 250 mls/hr Q24H IVPB Last administered on 10/30/18 18:30; Admin Dose 250 MLS/HR; Start 10/28/18 at 18:00 Ondansetron HCl (Zofran Tab) 4 mg Q6H PRN PO NAUSEA AND/OR VOMITING; Start 10/28/18 at 16:00 Oxycodone HCl (Roxicodone) 30 mg BID PRN PO MODERATE PAIN LEVEL 4-6 Last administered on 10/29/18 01:58; Admin Dose 30 MG; Start 10/28/18 at 19:00 Tamsulosin HCl (Flomax) 0.4 mg HS PO Last administered on 10/30/18 20:24; Admin Dose 0.4 MG; Start 10/28/18 at 21:00 Sumatriptan Succinate (Imitrex) 50 mg PRN PRN PO MIGRAINE Last administered on 10/30/18 17:39; Admin Dose 50 MG; Start 10/28/18 at 19:30 Zolpidem Tartrate (Ambien) 5 mg HS MAY REPEAT X 1 PRN PO INSOMNIA Last administered on 10/30/18 21:21; Admin Dose 5 MG; Start 10/28/18 at 17:30 Oxycodone HCl (Oxycontin) 60 mg Q8 PO Last administered on 10/31/18 05:46; Admin Dose 60 MG; Start 10/28/18 at 22:00 Clonidine (Catapres) 0.1 mg Q4H PRN PO sbp>160 Last administered on 10/30/18 08:00; Admin Dose 0.1 MG; Start 10/29/18 at 09:00 Metoclopramide HCl (Reglan) 10 mg Q6 IV Last administered on 10/31/18 12:33; Admin Dose 10 MG; Start 10/29/18 at 18:00 Polyethylene Glycol (Miralax) 17 gm DAILY PO Last administered on 10/31/18 08:51; Admin Dose 17 GM; Start 10/30/18 at 09:00 Amlodipine Besylate (Norvasc) 10 mg DAILY PO Last administered on 10/31/18 08:54; Admin Dose 10 MG; Start 10/30/18 at 09:00 Lisinopril (Zestril) 10 mg DAILY PO Last administered on 10/31/18 08:54; Admin Dose 10 MG; Start 10/30/18 at 09:00 Levalbuterol (Xopenex Neb) 1.25 mg Q4H RESP THERAPY PRN HHN sob; Start 10/30/18 at 12:00 Famotidine (Pepcid) 20 mg BID PO Last administered on 10/31/18 08:53; Admin Dose 20 MG; Start 10/30/18 at 21:00 CHRISTOPHER MOORE NP Oct 31, 2018 13:09
--- NOTE | 2018-10-31 14:07 | PN ---
Date/Time of Note Date/Time of Note DATE: 10/31/18 TIME: 14:05 Assessment/Plan VTE Prophylaxis Risk score (from Ns)>0 risk: 3 SCD applied (from Ns): Yes Pharmacological prophylaxis: heparin Lines/Catheters IV C[facility]from [facility] Saline Lock Assessment/Plan Assessment/Plan Summary Assessment and Plan: Assessment: Chronic intermittent nausea/vomiting -R/o GI etiology vs 2/2 migraines vs other Community-acquired pneumonia Normocytic anemia, mild DOMO- improved History of COPD History of lupus History of Chiari malformation -S/p surgical intervention 11 years ago -Migraines since surgery History of severe Aurelio Eduardo's syndrome - from [facility] History of smoking quit 8 weeks ago Plan: Nausea/vomiting has resolved- will continue current regimen Follow-up as an outpatient Continue close observation Patient seen in collaboration with Dr. Kent Subjective: Course reviewed with nursing staff Patient interviewed and examined All labs, imaging and other results reviewed The patient states he is feeling much better. Nausea and vomiting has resolved. He is tolerating regular diet well. White blood count is still elevated. Encouraged the patient to follow-up as an outpatient if symptoms return. PHYSICAL EXAMINATION: GENERAL: Well developed, well nourished, alert & oriented x 3, in no acute distress SKIN: Facial erythema HEAD: Normocephalic, atraumatic, no tenderness. EYES: Pupils equal reactive to light and accommodation, no discharge. EARS/NOSE AND THROAT: Ears normal, nose normal, NECK: Supple, no masses. CHEST: Inspection within normal limits. CARDIOVASCULAR: Heart: Regular rate and rhythm RESPIRATORY: Lungs clear to auscultation and percussion, no wheezing, no rubs GASTROINTESTINAL AND LIVER: Abdomen: Soft, non tenderness, non-distended, no hernias, no masses, no organomegaly, no ascites, no guarding, no rebound tenderness, normoactive bowel sounds. Rectal: Deferred. EXTREMITIES: No cyanosis, clubbing or edema Result Diagram: 10/31/18 0434 10/31/18 0435 Results 24hrs Laboratory Tests Test 10/31/18 04:34 10/31/18 04:35 White Blood Count 15.5 H Red Blood Count 4.90 Hemoglobin 14.2 Hematocrit 43.0 Mean Corpuscular Volume 87.8 Mean Corpuscular Hemoglobin 29.0 Mean Corpuscular Hemoglobin Concent 33.0 Red Cell Distribution Width 12.9 Platelet Count 428 H Mean Platelet Volume 9.7 Immature Granulocytes % 0.300 Neutrophils % 50.9 Lymphocytes % 12.6 L Monocytes % 9.7 Eosinophils % 25.1 H Basophils % 1.4 Nucleated Red Blood Cells % 0.0 Immature Granulocytes # 0.050 H Neutrophils # 7.9 H Lymphocytes # 2.0 Monocytes # 1.5 H Eosinophils # 3.9 H Basophils # 0.2 H Nucleated Red Blood Cells # 0.0 Sodium Level 144 Potassium Level 4.0 Chloride Level 108 Carbon Dioxide Level 24 Anion Gap 12 Blood Urea Nitrogen 21 H Creatinine 1.15 Est Glomerular Filtrat Rate mL/min > 60 Glucose Level 97 Calcium Level 9.0 B-Type Natriuretic Peptide 831 H CC: GHAZALA KENT MD ; Exam/Review of Systems Exam Vitals Vital Signs Date Temp Pulse Resp B/P (MAP) Pulse Ox O2 O2 Flow FiO2 Time Delivery Rate 10/31/18 Nasal 3.0 08:11 Cannula 10/31/18 97.7 98 18 158/74 91 07:50 (102) 10/28/18 28 11:54 Intake and Output 10/30/18 10/30/18 10/31/18 1515:00 23:00 07:00 IntakeIntake Total 540 ml BalanceBalance 540 ml Results Results 24hrs Laboratory Tests Test 10/31/18 04:34 10/31/18 04:35 White Blood Count 15.5 H Red Blood Count 4.90 Hemoglobin 14.2 Hematocrit 43.0 Mean Corpuscular Volume 87.8 Mean Corpuscular Hemoglobin 29.0 Mean Corpuscular Hemoglobin Concent 33.0 Red Cell Distribution Width 12.9 Platelet Count 428 H Mean Platelet Volume 9.7 Immature Granulocytes % 0.300 Neutrophils % 50.9 Lymphocytes % 12.6 L Monocytes % 9.7 Eosinophils % 25.1 H Basophils % 1.4 Nucleated Red Blood Cells % 0.0 Immature Granulocytes # 0.050 H Neutrophils # 7.9 H Lymphocytes # 2.0 Monocytes # 1.5 H Eosinophils # 3.9 H Basophils # 0.2 H Nucleated Red Blood Cells # 0.0 Sodium Level 144 Potassium Level 4.0 Chloride Level 108 Carbon Dioxide Level 24 Anion Gap 12 Blood Urea Nitrogen 21 H Creatinine 1.15 Est Glomerular Filtrat Rate mL/min > 60 Glucose Level 97 Calcium Level 9.0 B-Type Natriuretic Peptide 831 H Medications Medication Current Medications Hydroxychloroquine Sulfate (Plaquenil) 200 mg BID PO Last administered on 10/31/18 08:53; Admin Dose 200 MG; Start 10/28/18 at 21:00 Fluticasone/ Vilanterol (Breo Ellipta 100-25 Mcg Inh) 1 inh DAILY INH Last a dministered on 10/31/18 08:51; Admin Dose 1 INH; Start 10/29/18 at 09:00 Hydralazine HCl (Apresoline) 10 mg Q4H PRN IV sbp>160 Last administered on 10/29/18 17:07; Admin Dose 10 MG; Start 10/28/18 at 15:30 IV Flush (NS 3 ml) 3 ml PER PROTOCOL IV ; Start 10/28/18 at 15:30 Ondansetron HCl (Zofran Inj) 4 mg Q6H PRN IV NAUSEA/VOMITING Last administered on 10/29/18 20:45; Admin Dose 4 MG; Start 10/28/18 at 15:30 Acetaminophen (Tylenol Supp) 650 mg Q6H PRN [place] .PAIN 1-3 OR TEMP; Start 10/28/18 at 15:30 Morphine Sulfate (morphine) 2 mg Q4H PRN IV .SEVERE PAIN 7-10 Last administered on 10/29/18 18:51; Admin Dose 2 MG; Start 10/28/18 at 15:30 Enoxaparin Sodium (Lovenox) 40 mg DAILY SC Last administered on 10/31/18 10:56; Admin Dose 40 MG; Start 10/29/18 at 09:00 Ceftriaxone Sodium 50 ml @ 100 mls/hr Q24H IVPB Last administered on 10/30/18 17:31; Admin Dose 100 MLS/HR; Start 10/28/18 at 17:00 Azithromycin 250 ml @ 250 mls/hr Q24H IVPB Last administered on 10/30/18 18:30; Admin Dose 250 MLS/HR; Start 10/28/18 at 18:00 Ondansetron HCl (Zofran Tab) 4 mg Q6H PRN PO NAUSEA AND/OR VOMITING; Start at 16:00 Oxycodone HCl (Roxicodone) 30 mg BID PRN PO MODERATE PAIN LEVEL 4-6 Last administered on 10/29/18 01:58; Admin Dose 30 MG; Start 10/28/18 at 19:00 Tamsulosin HCl (Flomax) 0.4 mg HS PO Last administered on 10/30/18 20:24; Admin Dose 0.4 MG; Start 10/28/18 at 21:00 Sumatriptan Succinate (Imitrex) 50 mg PRN PRN PO MIGRAINE Last administered on 10/30/18 17:39; Admin Dose 50 MG; Start 10/28/18 at 19:30 Zolpidem Tartrate (Ambien) 5 mg HS MAY REPEAT X 1 PRN PO INSOMNIA Last administered on 10/30/18 21:21; Admin Dose 5 MG; Start 10/28/18 at 17:30 Oxycodone HCl (Oxycontin) 60 mg Q8 PO Last administered on 10/31/18 13:54; Admin Dose 60 MG; Start 10/28/18 at 22:00 Clonidine (Catapres) 0.1 mg Q4H PRN PO sbp>160 Last administered on 10/30/18 08:00; Admin Dose 0.1 MG; Start 10/29/18 at 09:00 Metoclopramide HCl (Reglan) 10 mg Q6 IV Last administered on 10/31/18 12:33; Admin Dose 10 MG; Start 10/29/18 at 18:00 Polyethylene Glycol (Miralax) 17 gm DAILY PO Last administered on 10/31/18 0 8:51; Admin Dose 17 GM; Start 10/30/18 at 09:00 Amlodipine Besylate (Norvasc) 10 mg DAILY PO Last administered on 10/31/18 08:54; Admin Dose 10 MG; Start 10/30/18 at 09:00 Lisinopril (Zestril) 10 mg DAILY PO Last administered on 10/31/18 08:54; Admin Dose 10 MG; Start 10/30/18 at 09:00 Levalbuterol (Xopenex Neb) 1.25 mg Q4H RESP THERAPY PRN HHN sob; Start 10/30/18 at 12:00 Famotidine (Pepcid) 20 mg BID PO Last administered on 10/31/18 08:53; Admin Dose 20 MG; Start 10/30/18 at 21:00 AGUSTINA ALDANA NP Oct 31, 2018 14:07
[2018-10-31] MEDS: CEFTRIAXONE 2 GM/50 ML (PMX) 50 ML IVPB SCH (17:33)
--- NOTE | 2018-10-31 17:37 | CONS ---
Assessment/Plan Assessment/Plan Hospital Course (Demo Recall) ID PROGRESS NOTE CURRENT ABX: DAY #4 =>CEFTRIAXONE + AZITH 24H INTERVAL SUMMARY * Without dyspnea on supplemental O2 -- no fevers, VSS * BNP elevated to 831 -- HTN READINGS INTERMITTENTLY w/LO -- suspect mild HTN heart disease * WBC rising -> s/p DECADRON IV 10/28/18 DIAGNOSTIC IMAGING * 10/30/18 CXR: Atelectasis versus minimal infiltrates in the perihilar lower lungs.Scattered atelectasis in both lungs. Diffuse mild interstitial prominence in both lungs. Interstitial prominence could be chronic or reflect mild interstitial edema. Hypoinflated lungs with an elevated right hem idiaphragm. MICRO * 10/28/18 BCX (-) * 10/28/18 (-)MRSA * 10/29/18 (-) INFLUENZA A/B PHYSICAL EXAMINATION: GENERAL: VSS, NAD HEENT: AT, NC, NECK: Supple, CHEST: Rise symmetrical HEART: Pulse RRR ABDOMEN: Deferred EXTREMITIES: Warm, dry SKIN: No rash, no diaphoresis ID ASSESSMENT 62 yo M admit with: 1. SIRS w/WBC rising -> s/p DECADRON IV 10/28/18 2. Community-acquired pneumonia/COPD exacerbation 3. Acute kidney injury with improving kidney function 4. History of lupus 5. Hypertension - QUERY HTN heart disease * BNP elevated to 831 -- HTN READINGS INTERMITTENTLY w/LO -- suspect mild HTN heart disease 6. Migraine headaches status post surgical intervention for Ciari malformation 7. Chronic intermittent nausea/vomiting -R/o GI etiology vs 2/2 migraines vs other = GI on the case 8. Chronic tobaccoism=> quit smoking 8 weeks ago 9. Hx of Anderson-Eduardo syndrome w/Levaquin = avoid Quinolones ABX ALLERGIES: LEVAQUIN INVASIVES: PIV CURRENT ABX: DAY #4 =>Ceftriaxone + Azith ID RECOMMENDATIONS/PLAN: 1. Continue current ABX - HTN management per primary * WBC rising -> s/p DECADRON IV 10/28/18 2. Will continue to follow . Consultation Date/Type/Reason Admit Date/Time Oct 28, 2018 at 13:40 Initial Consult Date 10/29/18 Requesting Provider: CHRISTOPHER MOORE NP Date/Time of Note DATE: 10/31/18 TIME: 17:33 Exam/Review of Systems Exam Vitals Vital Signs Date Temp Pulse Resp B/P (MAP) Pulse Ox O2 O2 Flow FiO2 Time Delivery Rate 10/31/18 98.7 106 18 124/78 90 14:05 (93) 10/31/18 Nasal 3.0 08:11 Cannula 10/28/18 28 11:54 Intake and Output 10/30/18 10/30/18 10/31/18 1515:00 23:00 07:00 IntakeIntake Total 540 ml BalanceBalance 540 ml Results Result Diagram: 10/31/18 0434 10/31/18 0435 Results 24hrs Laboratory Tests Test 10/31/18 04:34 10/31/18 04:35 White Blood Count 15.5 H Red Blood Count 4.90 Hemoglobin 14.2 Hematocrit 43.0 Mean Corpuscular Volume 87.8 Mean Corpuscular Hemoglobin 29.0 Mean Corpuscular Hemoglobin Concent 33.0 Red Cell Distribution Width 12.9 Platelet Count 428 H Mean Platelet Volume 9.7 Immature Granulocytes % 0.300 Neutrophils % 50.9 Lymphocytes % 12.6 L Monocytes % 9.7 Eosinophils % 25.1 H Basophils % 1.4 Nucleated Red Blood Cells % 0.0 Immature Granulocytes # 0.050 H Neutrophils # 7.9 H Lymphocytes # 2.0 Monocytes # 1.5 H Eosinophils # 3.9 H Basophils # 0.2 H Nucleated Red Blood Cells # 0.0 Sodium Level 144 Potassium Level 4.0 Chloride Level 108 Carbon Dioxide Level 24 Anion Gap 12 Blood Urea Nitrogen 21 H Creatinine 1.15 Est Glomerular Filtrat Rate mL/min > 60 Glucose Level 97 Calcium Level 9.0 B-Type Natriuretic Peptide 831 H Medications Medication Current Medications Hydroxychloroquine Sulfate (Plaquenil) 200 mg BID PO Last administered on 10/31/18at 08:53; Admin Dose 200 MG; Start 10/28/18 at 21:00 Fluticasone/ Vilanterol (Breo Ellipta 100-25 Mcg Inh) 1 inh DAILY INH Last administered on 10/31/18at 08:51; Admin Dose 1 INH; Start 10/29/18 at 09:00 Hydralazine HCl (Apresoline) 10 mg Q4H PRN IV sbp>160 Last administered on 10/29/18at 17:07; Admin Dose 10 MG; Start 10/28/18 at 15:30 IV Flush (NS 3 ml) 3 ml PER PROTOCOL IV ; Start 10/28/18 at 15:30 Ondansetron HCl (Zofran Inj) 4 mg Q6H PRN IV NAUSEA/VOMITING Last administered on 10/29/18 20:45; Admin Dose 4 MG; Start 10/28/18 at 15:30 Acetaminophen (Tylenol Supp) 650 mg Q6H PRN [place] .PAIN 1-3 OR TEMP; Start 10/28/18 at 15:30 Morphine Sulfate (morphine) 2 mg Q4H PRN IV .SEVERE PAIN 7-10 Last administered on 10/29/18 18:51; Admin Dose 2 MG; Start 10/28/18 at 15:30 Enoxaparin Sodium (Lovenox) 40 mg DAILY SC Last administered on 10/31/18 10:56; Admin Dose 40 MG; Start 10/29/18 at 09:00 Ceftriaxone Sodium 50 ml @ 100 mls/hr Q24H IVPB Last administered on 10/30/18 17:31; Admin Dose 100 MLS/HR; Start 10/28/18 at 17:00 Azithromycin 250 ml @ 250 mls/hr Q24H IVPB Last administered on 10/30/18 18:30; Admin Dose 250 MLS/HR; Start 10/28/18 at 18:00 Ondansetron HCl (Zofran Tab) 4 mg Q6H PRN PO NAUSEA AND/OR VOMITING; Start 10/28/18 at 16:00 Oxycodone HCl (Roxicodone) 30 mg BID PRN PO MODERATE PAIN LEVEL 4-6 Last administered on 10/29/18 01:58; Admin Dose 30 MG; Start 10/28/18 at 19:00 Tamsulosin HCl (Flomax) 0.4 mg HS PO Last administered on 10/30/18 20:24; Admin Dose 0.4 MG; Start 10/28/18 at 21:00 Sumatriptan Succinate (Imitrex) 50 mg PRN PRN PO MIGRAINE Last administered on 10/30/18 17:39; Admin Dose 50 MG; Start 10/28/18 at 19:30 Zolpidem Tartrate (Ambien) 5 mg HS MAY REPEAT X 1 PRN PO INSOMNIA Last administered on 7/4/19at 21:21; Admin Dose 5 MG; Start 10/28/18 at 17:30 Oxycodone HCl (Oxycontin) 60 mg Q8 PO Last administered on 10/31/18 13:54; Admin Dose 60 MG; Start 10/28/18 at 22:00 Clonidine (Catapres) 0.1 mg Q4H PRN PO sbp>160 Last administered on 10/30/18 08:00; Admin Dose 0.1 MG; Start 10/29/18 at 09:00 Metoclopramide HCl (Reglan) 10 mg Q6 IV Last administered on 10/31/18 12:33; Admin Dose 10 MG; Start 10/29/18 at 18:00 Polyethylene Glycol (Miralax) 17 gm DAILY PO Last administered on 10/31/18 08:51; Admin Dose 17 GM; Start 10/30/18 at 09:00 Amlodipine Besylate (Norvasc) 10 mg DAILY PO Last administered on 10/31/18 08:54; Admin Dose 10 MG; Start 10/30/18 at 09:00 Lisinopril (Zestril) 10 mg DAILY PO Last administered on 10/31/18 08:54; Admin Dose 10 MG; Start 10/30/18 at 09:00 Levalbuterol (Xopenex Neb) 1.25 mg Q4H RESP THERAPY PRN HHN sob; Start 10/30/18 at 12:00 Famotidine (Pepcid) 20 mg BID PO Last administered on 10/31/18 08:53; Admin D ose 20 MG; Start 10/30/18 at 21:00 ILAN MEANS NP Oct 31, 2018 17:37
[2018-10-31] MEDS: AZITHROMYCIN 500MG/NS (PMX) 250 ML IVPB SCH (18:20)
[2018-10-31] MEDS: ZOLPIDEM 5 MG TAB PO PRN (21:25)
[2018-10-31] MEDS: TAMSULOSIN (SR) 0.4 MG CAP PO SCH (21:28)
[2018-11-01] MEDS: METOCLOPRAMIDE 10 MG INJ IV SCH ×4 (00:07→17:38)
[2018-11-01 02:15] VITALS: BP 119/65; PULSE 92; RESP 16
[2018-11-01] MEDS: oxyCODONE (CR) 20 MG TAB [oxyCONTIN] PO SCH ×3 (05:52→22:03)
[2018-11-01] MEDS ORDERED: METOPROLOL 5 MG INJ ONE (07:00)
[2018-11-01 08:01] VITALS: BP 127/94; PULSE 176; RESP 22
[2018-11-01] MEDS: HYDROXYCHLOROQUINE 200 MG TAB PO SCH ×2 (08:23→20:51)
[2018-11-01] MEDS: AMLODIPINE 10 MG TAB PO SCH (08:23)
[2018-11-01] MEDS: FAMOTIDINE 20 MG TAB PO SCH ×2 (08:23→20:51)
[2018-11-01] MEDS: LISINOPRIL 10 MG TAB PO SCH (08:23)
[2018-11-01] MEDS ORDERED: METOPROLOL 5 MG INJ IV ONE (08:30)
--- NOTE | 2018-11-01 08:46 | PN ---
DATE: 11/01/2018 SUBJECTIVE: The patient is stable. No events overnight. OBJECTIVE: VITAL SIGNS: Blood pressure is 127/94, respirations 22, temperature 99.2. HEENT: Head is normocephalic. NECK: Supple. HEART: Regular rate. LUNGS: Show diminished breath sounds at the base. ABDOMEN: Soft, nontender to palpation. No rebound or guarding. EXTREMITIES: Negative for clubbing, cyanosis, no edema. DERMATOLOGIC: No rashes. MUSCULOSKELETAL: No joint effusion. NEUROLOGIC: No change in exam. MEDICATIONS: Have been reviewed. LABORATORY DATA: Has been reviewed. IMAGING STUDIES: Have been reviewed. ASSESSMENT AND PLAN: 1. Nonoliguric acute kidney injury on top of chronic kidney disease with previous baseline creatinin e around 1.4 mg/dL. Etiology of acute kidney injury is secondary to hemodynamics, Bactrim effect. R enal function improved below previous baseline. Continue to monitor. 2. Hypertension. Blood pressure improved. Continue current blood pressure regimen, will up-titrate CHAD inhibitor as needed. 3. Mineral bone disorder, monitor calcium and phosphorus levels. 4. Pneumonia. Continue current bowel regimen. 5. Chronic obstructive pulmonary disease. Continue medical management. 6. History of lupus. 7. History of Chiari malformation. 8. Migraines. Continue current medical management. Dictated By: ZAID FISH/LOUIE Conf#: [id number] DID#: [id number] CC: JENNIFER ACOSTA MD;*EndCC*
[2018-11-01] MEDS: ENOXAPARIN 40 MG/0.4 ML SYG SC SCH (09:00)
[2018-11-01] MEDS: POLYETHYLENE GLYCOL 17 GM PACKET PO SCH (09:00)
[2018-11-01] MEDS: FLUTICASONE/VILANTEROL 100-25 INH SCH (09:00)
[2018-11-01 09:39] VITALS: BP 132/75; PULSE 80; RESP 18
--- NOTE | 2018-11-01 11:02 | RADRPT ---
Vent Rate: 171 bpm RR Interval: 352 msec PA Interval: 48 msec QRS Duration: 85 msec QT Interval: 277 msec QTC Interval: 467 msec P-R-T Ashley: 0 - 43 - 79 degrees Supraventricular tachycardia...V-rate>(220-age), QRSd<120 ST depression, probably rate related...ST <-0.10mV & extreme tachycardia Electronically Signed By: Erin Hines
[2018-11-01 11:26] VITALS: BP 135/81; PULSE 86; RESP 19
--- NOTE | 2018-11-01 13:01 | CONS ---
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 Full note dicted - thank you # [id number] Past Medical History Home Meds Reported Medications Ondansetron Hcl* (Zofran*) 4 Mg Tab, 4 MG PO Q6H PRN for NAUSEA AND OR VOMITING, TAB 10/28/18 Temazepam* (Temazepam*) 30 Mg Capsule, 30 MG PO HS PRN for INSOMNIA, CAP 10/28/18 Oxycodone Hcl* (Oxycontin*) 60 Mg Tab.sr.12h, 60 MG PO Q8H, TAB 10/28/18 Oxycodone Hcl* (Oxycontin*) 30 Mg Tab.sr.12h, 30 MG PO NEEDED, TAB 10/28/18 Rizatriptan Benzoate (Rizatriptan Benzoate) 10 Mg Tab.rapdis, 10 MG PO NEEDED PRN for MIGRAINE, TAB may repeat after 2 hours, MAX 30 mg/24 hour 10/28/18 Hydroxychloroquine Sulfate* (Hydroxychloroquine Sulfate*) 200 Mg Tablet, 200 MG PO BID, TAB 10/28/18 Clonidine Hcl* (Clonidine Hcl*) 0.2 Mg Tablet, 0.2 MG PO BID PRN for NEEDED, TAB 10/28/18 Tamsulosin Hcl* (Flomax*) 0.4 Mg Cap.er.24h, 0.4 MG PO HS, CAP 10/28/18 Sulfamethoxazole/Trimethoprim* (Bactrim Ds* Tablet) 1 Each Tablet, 1 TAB PO BID, TAB FOR 21 DAYS, START DATE 10/17/18 10/28/18 Medications Current Medications Hydroxychloroquine Sulfate (Plaquenil) 200 mg BID PO Last administered on 11/01/18at 08:23; Admin Dose 200 MG; Start 10/28/18 at 21:00 Fluticasone/ Vilanterol (Breo Ellipta 100-25 Mcg Inh) 1 inh DAILY INH Last administered on 10/31/18at 08:51; Admin Dose 1 INH; Start 10/29/18 at 09:00 Hydralazine HCl (Apresoline) 10 mg Q4H PRN IV sbp>160 Last administered on 10/29/18 17:07; Admin Dose 10 MG; Start 10/28/18 at 15:30 IV Flush (NS 3 ml) 3 ml PER PROTOCOL IV ; Start 10/28/18 at 15:30 Ondansetron HCl (Zofran Inj) 4 mg Q6H PRN IV NAUSEA/VOMITING Last administered on 10/29/18 20:45; Admin Dose 4 MG; Start 10/28/18 at 15:30 Acetaminophen (Tylenol Supp) 650 mg Q6H PRN [place] .PAIN 1-3 OR TEMP; Start 10/28/18 at 15:30 Morphine Sulfate (morphine) 2 mg Q4H PRN IV .SEVERE PAIN 7-10 Last administered on 10/29/18 18:51; Admin Dose 2 MG; Start 10/28/18 at 15:30 Enoxaparin Sodium (Lovenox) 40 mg DAILY SC Last administered on 10/31/18 10:56; Admin Dose 40 MG; Start 10/29/18 at 09:00 Ceftriaxone Sodium 50 ml @ 100 mls/hr Q24H IVPB Last administered on 10/31/18 17:33; Admin Dose 100 MLS/HR; Start 10/28/18 at 17:00 Azithromycin 250 ml @ 250 mls/hr Q24H IVPB Last administered on 10/31/18 18:20; Admin Dose 250 MLS/HR; Start 10/28/18 at 18:00 Ondansetron HCl (Zofran Tab) 4 mg Q6H PRN PO NAUSEA AND/OR VOMITING; Start 10/28/18 at 16:00 Oxycodone HCl (Roxicodone) 30 mg BID PRN PO MODERATE PAIN LEVEL 4-6 Last administered on 10/29/18 01:58; Admin Dose 30 MG; Start 10/28/18 at 19:00 Tamsulosin HCl (Flomax) 0.4 mg HS PO Last administered on 10/31/18 21:28; Admin Dose 0.4 MG; Start 10/28/18 at 21:00 Sumatriptan Succinate (Imitrex) 50 mg PRN PRN PO MIGRAINE Last administered on 10/30/18 17:39; Admin Dose 50 MG; Start 10/28/18 at 19:30 Zolpidem Tartrate (Ambien) 5 mg HS MAY REPEAT X 1 PRN PO INSOMNIA Last administered on 10/31/18 21:25; Admin Dose 5 MG; Start 10/28/18 at 17:30 Oxycodone HCl (Oxycontin) 60 mg Q8 PO Last administered on 11/01/18 05:52; Admin Dose 60 MG; Start 10/28/18 at 22:00 Clonidine (Catapres) 0.1 mg Q4H PRN PO sbp>160 Last administered on 10/30/18 08:00; Admin Dose 0.1 MG; Start 10/29/18 at 09:00 Metoclopramide HCl (Reglan) 10 mg Q6 IV Last administered on 11/01/18 12:31; Admin Dose 10 MG; Start 10/29/18 at 18:00 Polyethylene Glycol (Miralax) 17 gm DAILY PO Last administered on 10/31/18 08:51; Admin Dose 17 GM; Start 10/30/18 at 09:00 Amlodipine Besylate (Norvasc) 10 mg DAILY PO Last administered on 11/01/18 08:23; Admin Dose 10 MG; Start 10/30/18 at 09:00 Lisinopril (Zestril) 10 mg DAILY PO Last administered on 11/01/18 08:23; Admin Dose 10 MG; Start 10/30/18 at 09:00 Levalbuterol (Xopenex Neb) 1.25 mg Q4H RESP THERAPY PRN HHN sob; Start 10/30/18 at 12:00 Famotidine (Pepcid) 20 mg BID PO Last administered on 11/01/18 08:23; Admin Dose 20 MG; Start 10/30/18 at 21:00 Allergies: Coded Allergies: levofloxacin (Verified Allergy, Severe, NENA CECILE'S SYNDROME, 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) Social History Alcohol Use: none Smoking Status: Former smoker Drug Use: none Exam/Review of Systems Vital Signs Vitals Vital Signs Date Temp Pulse Resp B/P (MAP) Pulse Ox O2 O2 Flow FiO2 Time Delivery Rate 11/01/18 97.9 86 19 135/81 94 11:26 (99) 11/01/18 Nasal 3.0 10:04 Cannula 10/28/18 28 11:54 Intake and Output 10/31/18 10/31/18 11/01/18 1515:00 23:00 07:00 IntakeIntake Total 1680 ml 660 ml BalanceBalance 1680 ml 660 ml Labs Result Diagram: 11/01/18 0506 11/01/18 0506 Results 24hrs Laboratory Tests Test 11/01/18 05:04 11/01/18 05:06 11/01/18 08:24 Magnesium Level 2.2 White Blood Count 17.5 H Red Blood Count 4.93 Hemoglobin 14.4 Hematocrit 42.8 Mean Corpuscular Volume 86.8 Mean Corpuscular Hemoglobin 29.2 Mean Corpuscular Hemoglobin Concent 33.6 Red Cell Distribution Width 12.4 Platelet Count 431 H Mean Platelet Volume 9.7 Immature Granulocytes % 0.400 Neutrophils % 54.1 Lymphocytes % 11.1 L Monocytes % 9.2 Eosinophils % 24.0 H Basophils % 1.2 Nucleated Red Blood Cells % 0.0 Immature Granulocytes # 0.070 H Neutrophils # 9.5 H Lymphocytes # 1.9 Monocytes # 1.6 H Eosinophils # 4.2 H Basophils # 0.2 H Nucleated Red Blood Cells # 0.0 Sodium Level 142 Potassium Level 4.0 Chloride Level 107 Carbon Dioxide Level 24 Anion Gap 11 Blood Urea Nitrogen 20 Creatinine 1.08 Est Glomerular Filtrat Rate mL/min > 60 Glucose Level 110 Calcium Level 9.0 Bedside Glucose 161 Medications Medications Current Medications Hydroxychloroquine Sulfate (Plaquenil) 200 mg BID PO Last administered on 11/01/18at 08:23; Admin Dose 200 MG; Start 10/28/18 at 21:00 Fluticasone/ Vilanterol (Breo Ellipta 100-25 Mcg Inh) 1 inh DAILY INH Last administered on 10/31/18at 08:51; Admin Dose 1 INH; Start 10/29/18 at 09:00 Hydralazine HCl (Apresoline) 10 mg Q4H PRN IV sbp>160 Last administered on 10/29/18at 17:07; Admin Dose 10 MG; Start 10/28/18 at 15:30 IV Flush (NS 3 ml) 3 ml PER PROTOCOL IV ; Start 10/28/18 at 15:30 Ondansetron HCl (Zofran Inj) 4 mg Q6H PRN IV NAUSEA/VOMITING Last administered on 10/29/18 20:45; Admin Dose 4 MG; Start 10/28/18 at 15:30 Acetaminophen (Tylenol Supp) 650 mg Q6H PRN [place] .PAIN 1-3 OR TEMP; Start 10/28/18 at 15:30 Morphine Sulfate (morphine) 2 mg Q4H PRN IV .SEVERE PAIN 7-10 Last administered on 10/29/18 18:51; Admin Dose 2 MG; Start 10/28/18 at 15:30 Enoxaparin Sodium (Lovenox) 40 mg DAILY SC Last administered on 10/31/18 10:56; Admin Dose 40 MG; Start 10/29/18 at 09:00 Ceftriaxone Sodium 50 ml @ 100 mls/hr Q24H IVPB Last administered on 10/31/18 17:33; Admin Dose 100 MLS/HR; Start 10/28/18 at 17:00 Azithromycin 250 ml @ 250 mls/hr Q24H IVPB Last administered on 10/31/18 18:20; Admin Dose 250 MLS/HR; Start 10/28/18 at 18:00 Ondansetron HCl (Zofran Tab) 4 mg Q6H PRN PO NAUSEA AND/OR VOMITING; Start 10/28/18 at 16:00 Oxycodone HCl (Roxicodone) 30 mg BID PRN PO MODERATE PAIN LEVEL 4-6 Last admi nistered on 10/29/18 01:58; Admin Dose 30 MG; Start 10/28/18 at 19:00 Tamsulosin HCl (Flomax) 0.4 mg HS PO Last administered on 10/31/18 21:28; Admin Dose 0.4 MG; Start 10/28/18 at 21:00 Sumatriptan Succinate (Imitrex) 50 mg PRN PRN PO MIGRAINE Last administered on 10/30/18 17:39; Admin Dose 50 MG; Start 10/28/18 at 19:30 Zolpidem Tartrate (Ambien) 5 mg HS MAY REPEAT X 1 PRN PO INSOMNIA Last admin istered on 10/31/18 21:25; Admin Dose 5 MG; Start 10/28/18 at 17:30 Oxycodone HCl (Oxycontin) 60 mg Q8 PO Last administered on 11/01/18 05:52; Admin Dose 60 MG; Start 10/28/18 at 22:00 Clonidine (Catapres) 0.1 mg Q4H PRN PO sbp>160 Last administered on 10/30/18 08:00; Admin Dose 0.1 MG; Start 10/29/18 at 09:00 Metoclopramide HCl (Reglan) 10 mg Q6 IV Last administered on 11/01/18 12:31; Admin Dose 10 MG; Start 10/29/18 at 18:00 Polyethylene Glycol (Miralax) 17 gm DAILY PO Last administered on 10/31/18 08:51; Admin Dose 17 GM; Start 10/30/18 at 09:00 Amlodipine Besylate (Norvasc) 10 mg DAILY PO Last administered on 11/01/18 08:23; Admin Dose 10 MG; Start 10/30/18 at 09:00 Lisinopril (Zestril) 10 mg DAILY PO Last administered on 11/01/18 08:23; Admin Dose 10 MG; Start 10/30/18 at 09:00 Levalbuterol (Xopenex Neb) 1.25 mg Q4H RESP THERAPY PRN HHN sob; Start 10/30/18 at 12:00 Famotidine (Pepcid) 20 mg BID PO Last administered on 11/01/18 08:23; Admin Dose 20 MG; Start 10/30/18 at 21:00 IJEOMA BUITRAGO MD Nov 01, 2018 13:01
--- NOTE | 2018-11-01 14:03 | PN ---
Date/Time of Note Date/Time of Note DATE: 11/01/18 TIME: 14:03 Assessment/Plan VTE Prophylaxis Risk score (from Ns)>0 risk: 4 SCD applied (from Ns): No SCD contraindicated: other (scds) Pharmacological prophylaxis: other (scds) Lines/Catheters [facility]from [facility] Saline Lock Assessment/Plan Hospital Course Assessment/Plan Summary Assessment and Plan: Assessment: Chronic intermittent nausea/vomiting -R/o GI etiology vs 2/2 migraines vs other Community-acquired pneumonia Normocytic anemia, mild DOMO- improved History of COPD History of lupus History of Chiari malformation -S/p surgical intervention 11 years ago -Migraines since surgery History of severe Aurelio Eduardo's syndrome - from [facility] History of smoking quit 8 weeks ago SVT- cardiology following Plan: Nausea/vomiting has resolved- will continue current regimen Follow-up as an outpatient Continue close observation Patient seen in collaboration with Dr. Kent Subjective: Course reviewed with nursing staff Patient interviewed and examined All labs, imaging and other results reviewed Pt s/p SVT this am-Per patient he was evaluated by cardiology with tentative plan for stress test on Saturday. Previous GI symptoms of nausea and vomiting have resolved. Given current respiratory distress and new onset of SVT there is no plan for inpatient EGD. Next I discussed plan for patient to follow-up with GI as an outpatient for endoscopic evaluation. Patient verbalized understanding. PHYSICAL EXAMINATION: GENERAL: Well developed, well nourished, alert & oriented x 3, in no acute distress SKIN: Facial erythema HEAD: Normocephalic, atraumatic, no tenderness. EYES: Pupils equal reactive to light and accommodation, no discharge. EARS/NOSE AND THROAT: Ears normal, nose normal, NECK: Supple, no masses. CHEST: Inspection within normal limits. CARDIOVASCULAR: Heart: Regular rate and rhythm RESPIRATORY: Lungs clear to auscultation and percussion, no wheezing, no rubs GASTROINTESTINAL AND LIVER: Abdomen: Soft, non tenderness, non-distended, no hernias, no masses, no organomegaly, no ascites, no guarding, no rebound tenderness, normoactive bowel sounds. Rectal: Deferred. EXTREMITIES: No cyanosis, clubbing or edema Result Diagram: 11/01/18 0506 11/01/18 0506 Results 24hrs Laboratory Tests Test 11/01/18 05:04 11/01/18 05:06 11/01/18 08:24 Magnesium Level 2.2 White Blood Count 17.5 H Red Blood Count 4.93 Hemoglobin 14.4 Hematocrit 42.8 Mean Corpuscular Volume 86.8 Mean Corpuscular Hemoglobin 29.2 Mean Corpuscular Hemoglobin Concent 33.6 Red Cell Distribution Width 12.4 Platelet Count 431 H Mean Platelet Volume 9.7 Immature Granulocytes % 0.400 Neutrophils % 54.1 Lymphocytes % 11.1 L Monocytes % 9.2 Eosinophils % 24.0 H Basophils % 1.2 Nucleated Red Blood Cells % 0.0 Immature Granulocytes # 0.070 H Neutrophils # 9.5 H Lymphocytes # 1.9 Monocytes # 1.6 H Eosinophils # 4.2 H Basophils # 0.2 H Nucleated Red Blood Cells # 0.0 Sodium Level 142 Potassium Level 4.0 Chloride Level 107 Carbon Dioxide Level 24 Anion Gap 11 Blood Urea Nitrogen 20 Creatinine 1.08 Est Glomerular Filtrat Rate mL/min > 60 Glucose Level 110 Calcium Level 9.0 Bedside Glucose 161 Exam/Review of Systems Exam Vitals Vital Signs Date Temp Pulse Resp B/P (MAP) Pulse Ox O2 O2 Flow FiO2 Time Delivery Rate 11/01/18 97.9 86 19 135/81 94 11:26 (99) 11/01/18 Nasal 3.0 10:04 Cannula 10/28/18 28 11:54 Intake and Output 10/31/18 10/31/18 11/01/18 1414:59 22:59 06:59 IntakeIntake Total 1680 ml 660 ml BalanceBalance 1680 ml 660 ml Results Results 24hrs Laboratory Tests Test 11/01/18 05:04 11/01/18 05:06 11/01/18 08:24 Magnesium Level 2.2 White Blood Count 17.5 H Red Blood Count 4.93 Hemoglobin 14.4 Hematocrit 42.8 Mean Corpuscular Volume 86.8 Mean Corpuscular Hemoglobin 29.2 Mean Corpuscular Hemoglobin Concent 33.6 Red Cell Distribution Width 12.4 Platelet Count 431 H Mean Platelet Volume 9.7 Immature Granulocytes % 0.400 Neutrophils % 54.1 Lymphocytes % 11.1 L Monocytes % 9.2 Eosinophils % 24.0 H Basophils % 1.2 Nucleated Red Blood Cells % 0.0 Immature Granulocytes # 0.070 H Neutrophils # 9.5 H Lymphocytes # 1.9 Monocytes # 1.6 H Eosinophils # 4.2 H Basophils # 0.2 H Nucleated Red Blood Cells # 0.0 Sodium Level 142 Potassium Level 4.0 Chloride Level 107 Carbon Dioxide Level 24 Anion Gap 11 Blood Urea Nitrogen 20 Creatinine 1.08 Est Glomerular Filtrat Rate mL/min > 60 Glucose Level 110 Calcium Level 9.0 Bedside Glucose 161 Medications Medication Current Medications Hydroxychloroquine Sulfate (Plaquenil) 200 mg BID PO Last administered on 11/01/18 08:23; Admin Dose 200 MG; Start 10/28/18 at 21:00 Fluticasone/ Vilanterol (Breo Ellipta 100-25 Mcg Inh) 1 inh DAILY INH Last administered on 10/31/18 08:51; Admin Dose 1 INH; Start 10/29/18 at 09:00 Hydralazine HCl (Apresoline) 10 mg Q4H PRN IV sbp>160 Last administered on 10/29/18 17:07; Admin Dose 10 MG; Start 10/28/18 at 15:30 IV Flush (NS 3 ml) 3 ml PER PROTOCOL IV ; Start 10/28/18 at 15:30 Ondansetron HCl (Zofran Inj) 4 mg Q6H PRN IV NAUSEA/VOMITING Last administered on 10/29/18 20:45; Admin Dose 4 MG; Start 10/28/18 at 15:30 Acetaminophen (Tylenol Supp) 650 mg Q6H PRN [place] .PAIN 1-3 OR TEMP; Start 10/28/18 at 15:30 Morphine Sulfate (morphine) 2 mg Q4H PRN IV .SEVERE PAIN 7-10 Last administered on 10/29/18 18:51; Admin Dose 2 MG; Start 10/28/18 at 15:30 Enoxaparin Sodium (Lovenox) 40 mg DAILY SC Last administered on 10/31/18 10:56; Admin Dose 40 MG; Start 10/29/18 at 09:00 Ceftriaxone Sodium 50 ml @ 100 mls/hr Q24H IVPB Last administered on 10/31/18 17:33; Admin Dose 100 MLS/HR; Start 10/28/18 at 17:00 Azithromycin 250 ml @ 250 mls/hr Q24H IVPB Last administered on 10/31/18 18:20; Admin Dose 250 MLS/HR; Start 10/28/18 at 18:00 Ondansetron HCl (Zofran Tab) 4 mg Q6H PRN PO NAUSEA AND/OR VOMITING; Start 10/28/18 at 16:00 Oxycodone HCl (Roxicodone) 30 mg BID PRN PO MODERATE PAIN LEVEL 4-6 Last administered on 10/29/18 01:58; Admin Dose 30 MG; Start 10/28/18 at 19:00 Tamsulosin HCl (Flomax) 0.4 mg HS PO Last administered on 10/31/18 21:28; Admin Dose 0.4 MG; Start 10/28/18 at 21:00 Sumatriptan Succinate (Imitrex) 50 mg PRN PRN PO MIGRAINE Last administered on 10/30/18 17:39; Admin Dose 50 MG; Start 10/28/18 at 19:30 Zolpidem Tartrate (Ambien) 5 mg HS MAY REPEAT X 1 PRN PO INSOMNIA Last administered on 10/31/18 21:25; Admin Dose 5 MG; Start 10/28/18 at 17:30 Oxycodone HCl (Oxycontin) 60 mg Q8 PO Last administered on 11/01/18 13:35; Admin Dose 60 MG; Start 10/28/18 at 22:00 Clonidine (Catapres) 0.1 mg Q4H PRN PO sbp>160 Last administered on 10/30/18 08:00; Admin Dose 0.1 MG; Start 10/29/18 at 09:00 Metoclopramide HCl (Reglan) 10 mg Q6 IV Last administered on 11/01/18 12:31; Admin Dose 10 MG; Start 10/29/18 at 18:00 Polyethylene Glycol (Miralax) 17 gm DAILY PO Last administered on 10/31/18 08:51; Admin Dose 17 GM; Start 10/30/18 at 09:00 Amlodipine Besylate (Norvasc) 10 mg DAILY PO Last administered on 11/01/18 08:23; Admin Dose 10 MG; Start 10/30/18 at 09:00 Lisinopril (Zestril) 10 mg DAILY PO Last administered on 11/01/18 08:23; Admin Dose 10 MG; Start 10/30/18 at 09:00 Levalbuterol (Xopenex Neb) 1.25 mg Q4H RESP THERAPY PRN HHN sob; Start 10/30/18 at 12:00 Famotidine (Pepcid) 20 mg BID PO Last administered on 11/01/18at 08:23; Admin Dose 20 MG; Start 10/30/18 at 21:00 Metoprolol Tartrate (Lopressor) 25 mg BID PO ; Start 11/01/18 at 21:00 HERNAN AYALA Nov 01, 2018 14:03
--- NOTE | 2018-11-01 14:05 | PN ---
Date/Time of Note Date/Time of Note DATE: 11/01/18 TIME: 13:59 Assessment/Plan VTE Prophylaxis Risk score (from Ns)>0 risk: 4 SCD applied (from Ns): Yes Pharmacological prophylaxis: LMWH Lines/Catheters IV [facility]from [facility] Saline Lock Assessment/Plan Hospital Course Assessment and plan 1. Community acquired pneumonia. -Continuing antibiotic treatment. - Patient does report allergy to Levaquin. 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 Suspect COPD with exacerbation. - Patient does have extensive cigarette smoking history. - continue breathing treatments - switched albuterol to levalbuterol due to reported tachycardia - smoking Cessation was advised. - Continue with nicotine patch. 3. Respiratory failure secondary to #1 and #2. - Continue with O2. 4. History of lupus. ' - continue patient's hydroxychloroquine. 5. Renal insufficiency. - monitor renal panel. - improving 6. Hypertension. - Will start antihypertensives. Will adjust as needed 7. History of Chiari malformation status post surgical intervention 11 years ago. - Patient does state that he does have chronic pain secondary to this as well as migraines. continue on analgesics. 8. Migraines. - Continue with analgesics. 9 . Nausea.vomiting - improved - scopalamine patch added - GI consult following - continue on reglan 10. SVT - was given metoprolol 5mg IV with good response - head of visual merchandising was notified - f/u echo - transferred to telemetry DISPO/PLAN: had FOOD MANAGEMENT AIDE this morning for SVT. stabilized with IV BB. head of visual merchandising consult obtained. monitor on telemetry . Discussed POC with Dr. Kinsey Result Diagram: 11/01/18 0506 11/01/18 0506 Results 24hrs Laboratory Tests Test 11/01/18 05:04 11/01/18 05:06 11/01/18 08:24 Magnesium Level 2.2 White Blood Count 17.5 H Red Blood Count 4.93 Hemoglobin 14.4 Hematocrit 42.8 Mean Corpuscular Volume 86.8 Mean Corpuscular Hemoglobin 29.2 Mean Corpuscular Hemoglobin Concent 33.6 Red Cell Distribution Width 12.4 Platelet Count 431 H Mean Platelet Volume 9.7 Immature Granulocytes % 0.400 Neutrophils % 54.1 Lymphocytes % 11.1 L Monocytes % 9.2 Eosinophils % 24.0 H Basophils % 1.2 Nucleated Red Blood Cells % 0.0 Immature Granulocytes # 0.070 H Neutrophils # 9.5 H Lymphocytes # 1.9 Monocytes # 1.6 H Eosinophils # 4.2 H Basophils # 0.2 H Nucleated Red Blood Cells # 0.0 Sodium Level 142 Potassium Level 4.0 Chloride Level 107 Carbon Dioxide Level 24 Anion Gap 11 Blood Urea Nitrogen 20 Creatinine 1.08 Est Glomerular Filtrat Rate mL/min > 60 Glucose Level 110 Calcium Level 9.0 Bedside Glucose 161 Subjective 24 Hr Interval Summary Free Text/Dictation was seen this morning with SVT. FOOD MANAGEMENT AIDE was called. I saw the patient with no s/s of acute distress but noted with SVT. Exam/Review of Systems Exam Vitals Vital Signs Date Temp Pulse Resp B/P (MAP) Pulse Ox O2 O2 Flow FiO2 Time Delivery Rate 11/01/18 97.9 86 19 135/81 94 11:26 (99) 11/01/18 Nasal 3.0 10:04 Cannula 10/28/18 28 11:54 Intake and Output 10/31/18 10/31/18 11/01/18 1515:00 23:00 07:00 IntakeIntake Total 1680 ml 660 ml BalanceBalance 1680 ml 660 ml Constitutional: alert, oriented Psych: nl mood/affect Head: normocephalic Respiratory: clear to auscultation Cardiovascular: irregular rhythm Neurological: ETHANOL MAINTENANCE MECHANIC II-XII intact, nl mental status, nl speech Skin: nl turgor Results Results 24hrs Laboratory Tests Test 11/01/18 05:04 11/01/18 05:06 11/01/18 08:24 Magnesium Level 2.2 White Blood Count 17.5 H Red Blood Count 4.93 Hemoglobin 14.4 Hematocrit 42.8 Mean Corpuscular Volume 86.8 Mean Corpuscular Hemoglobin 29.2 Mean Corpuscular Hemoglobin Concent 33.6 Red Cell Distribution Width 12.4 Platelet Count 431 H Mean Platelet Volume 9.7 Immature Granulocytes % 0.400 Neutrophils % 54.1 Lymphocytes % 11.1 L Monocytes % 9.2 Eosinophils % 24.0 H Basophils % 1.2 Nucleated Red Blood Cells % 0.0 Immature Granulocytes # 0.070 H Neutrophils # 9.5 H Lymphocytes # 1.9 Monocytes # 1.6 H Eosinophils # 4.2 H Basophils # 0.2 H Nucleated Red Blood Cells # 0.0 Sodium Level 142 Potassium Level 4.0 Chloride Level 107 Carbon Dioxide Level 24 Anion Gap 11 Blood Urea Nitrogen 20 Creatinine 1.08 Est Glomerular Filtrat Rate mL/min > 60 Glucose Level 110 Calcium Level 9.0 Bedside Glucose 161 Medications Medication Current Medications Hydroxychloroquine Sulfate (Plaquenil) 200 mg BID PO Last administered on 11/01/18 08:23; Admin Dose 200 MG; Start 10/28/18 at 21:00 Fluticasone/ Vilanterol (Breo Ellipta 100-25 Mcg Inh) 1 inh DAILY INH Last administered on 10/31/18 08:51; Admin Dose 1 INH; Start 10/29/18 at 09:00 Hydralazine HCl (Apresoline) 10 mg Q4H PRN IV sbp>160 Last administered on 10/29/18 17:07; Admin Dose 10 MG; Start 10/28/18 at 15:30 IV Flush (NS 3 ml) 3 ml PER PROTOCOL IV ; Start 10/28/18 at 15:30 Ondansetron HCl (Zofran Inj) 4 mg Q6H PRN IV NAUSEA/VOMITING Last administered on 10/29/18 20:45; Admin Dose 4 MG; Start 10/28/18 at 15:30 Acetaminophen (Tylenol Supp) 650 mg Q6H PRN [place] .PAIN 1-3 OR TEMP; Start 10/28/18 at 15:30 Morphine Sulfate (morphine) 2 mg Q4H PRN IV .SEVERE PAIN 7-10 Last administered on 10/29/18 18:51; Admin Dose 2 MG; Start 10/28/18 at 15:30 Enoxaparin Sodium (Lovenox) 40 mg DAILY SC Last administered on 10/31/18 10:56; Admin Dose 40 MG; Start 10/29/18 at 09:00 Ceftriaxone Sodium 50 ml @ 100 mls/hr Q24H IVPB Last administered on 10/31/18 17:33; Admin Dose 100 MLS/HR; Start 10/28/18 at 17:00 Azithromycin 250 ml @ 250 mls/hr Q24H IVPB Last administered on 10/31/18 18: 20; Admin Dose 250 MLS/HR; Start 10/28/18 at 18:00 Ondansetron HCl (Zofran Tab) 4 mg Q6H PRN PO NAUSEA AND/OR VOMITING; Start 10/28/18 at 16:00 Oxycodone HCl (Roxicodone) 30 mg BID PRN PO MODERATE PAIN LEVEL 4-6 Last administered on 10/29/18 01:58; Admin Dose 30 MG; Start 10/28/18 at 19:00 Tamsulosin HCl (Flomax) 0.4 mg HS PO Last administered on 10/31/18 21:28; Admin Dose 0.4 MG; Start 10/28/18 at 21:00 Sumatriptan Succinate (Imitrex) 50 mg PRN PRN PO MIGRAINE Last administered on 10/30/18 17:39; Admin Dose 50 MG; Start 10/28/18 at 19:30 Zolpidem Tartrate (Ambien) 5 mg HS MAY REPEAT X 1 PRN PO INSOMNIA Last administered on 10/31/18 21:25; Admin Dose 5 MG; Start 10/28/18 at 17:30 Oxycodone HCl (Oxycontin) 60 mg Q8 PO Last administered on 11/01/18 13:35; Admin Dose 60 MG; Start 10/28/18 at 22:00 Clonidine (Catapres) 0.1 mg Q4H PRN PO sbp>160 Last administered on 10/30/18 08:00; Admin Dose 0.1 MG; Start 10/29/18 at 09:00 Metoclopramide HCl (Reglan) 10 mg Q6 IV Last administered on 11/01/18 12:31; Admin Dose 10 MG; Start 10/29/18 at 18:00 Polyethylene Glycol (Miralax) 17 gm DAILY PO Last administered on 10/31/18 08:51; Admin Dose 17 GM; Start 10/30/18 at 09:00 Amlodipine Besylate (Norvasc) 10 mg DAILY PO Last administered on 11/01/18 08:23; Admin Dose 10 MG; Start 10/30/18 at 09:00 Lisinopril (Zestril) 10 mg DAILY PO Last administered on 11/01/18 08:23; Admin Dose 10 MG; Start 10/30/18 at 09:00 Levalbuterol (Xopenex Neb) 1.25 mg Q4H RESP THERAPY PRN HHN sob; Start 10/30/18 at 12:00 Famotidine (Pepcid) 20 mg BID PO Last administered on 11/01/18at 08:23; Admin Dose 20 MG; Start 10/30/18 at 21:00 Metoprolol Tartrate (Lopressor) 25 mg BID PO ; Start 11/01/18 at 21:00 CHRISTOPHER MOORE NP Nov 01, 2018 14:05
--- NOTE | 2018-11-01 14:37 | RADRPT ---
Echocardiogram Report Patient Name: MAXIMILIANO FAUSTINPatient ID: [id number] : 1955 (62y 11m)Study Date: 11/01/2018 8:46:25 AM Gender: Bettiecession #: [id number] Tech: Location: [facility] Ref.Physician: CHRISTOPHER MOORE Height(Cm): BSA: Weight(Kg): Quality: AdequateOrder Physician: CHRISTOPHER MOORE Account #: Procedures: Echocardiographic Report: Transthoracic echocardiogram with complete 2D, M-Mode, and doppler examination. Indications: Elevated Heart Rate. Measurements: 2D/M Mode Doppler Measurement Value Normal Range Measurement Value Normal Range LVIDd 2D 4.8 [ 4.2 - 5.8 ] cm AV Peak Delbert 1.7 [ 100.0 - 170.0 ] cm/se c LVIDs 2D 3.3 [ 2.5 - 4.0 ] cm AV Peak PG 12.0 [ 2.0 - 9.0 ] mmHg LVPWd 2D 1.1 [ 0.6 - 1.0 ] cm LVOT Peak Delbert 0.9 [ 70.0 - 110.0 ] cm/sec IVSd 2D 0.9 [ 0.6 - 1.0 ] cm LVOT Peak PG 3.0 [ 2.0 - 6.0 ] mmHg AoR Diam 2D 2.9 [ 2.6 - 3.4 ] cm MV E Peak Delbert 0.5 [ 60.0 - 130.0 ] cm/sec EDV 2D 110.0 [ 62.0 - 150.0 ] ml MV A Peak Delbert 1.0 [ 100.0 - 120.0 ] cm/se c ESV 2D 42.8 [ 21.0 - 61.0 ] ml MV E/A 0.5 [ 0.8 - 1.5 ] ratio EF 2D 61.1 [ 52.0 - 72.0 ] percent MV PHT 43.0 [ 20.0 - 100.0 ] msec LA Dimen 2D 4.2 [ 3.0 - 4.0 ] cm MV Decel Time 148 [ 104 - 258 ] msec MV Decel [place] 4 Lat E` Delbert 0.1 [ 10.0 - 15.0 ] cm/sec Lateral E/E` 8.8 [ 1.0 - 2.0 ] ratio Med E` Delbert 0.1 cm/sec MV E/A 0.5 [ 0.8 - 1.5 ] ratio MVA PHT 5.1 [ 2.0 - 4.0 ] cm2 Findings: Left Ventricle: Normal left ventricular systolic function. Normal left ventricular cavity size. Normal left ventricular wall thickness. Ejection fraction is visually estimated at 40-45 %. Tissue Doppler/Mitral Doppler indices are consistent with impaired relaxation (Stage I diastolic dysfunction). Right Ventricle: Normal right ventricular size. Normal right ventricular systolic function. Left Atrium: Upper limit of normal left atrial size. Right Atrium: The right atrium is normal in size. Atrial Septum: Normal atrial septum. Mitral Valve: Normal appearance of the mitral valve. No mitral valve regurgitation is seen. Aortic Valve: Normal appearance of the aortic valve. No aortic regurgitation. Tricuspid Valve: Normal appearance of the tricuspid valve. No evidence of tricuspid regurgitation. Pulmonic Valve: Normal pulmonic valve appearance. No evidence of pulmonic regurgitation. Pericardium: Normal pericardium with no significant pericardial effusion. Aorta: Normal aortic root. IVC: Normal size and normal respiratory collapse consistent with normal right atrial pressure. Conclusions: Normal left ventricular systolic function. Normal left ventricular cavity size. Normal left ventricular wall thickness. Ejection fraction is visually estimated at 40-45 %. Tissue Doppler/Mitral Doppler indices are consistent with impaired relaxation (Stage I diastolic dysfunction). ). Normal appearance of the mitral valve. No mitral valve regurgitation is seen. Normal appearance of the tricuspid valve. No evidence of tricuspid regurgitation. Electronically Signed By: Mu Palma 2018-11-01 14:37:18 PDT
[2018-11-01 15:51] VITALS: BP 133/75; PULSE 87; RESP 19
[2018-11-01] MEDS: CEFTRIAXONE 2 GM/50 ML (PMX) 50 ML IVPB SCH (16:32)
[2018-11-01] MEDS: AZITHROMYCIN 500MG/NS (PMX) 250 ML IVPB SCH (17:38)
--- NOTE | 2018-11-01 18:25 | CONS ---
Assessment/Plan Assessment/Plan Hospital Course (Demo Recall) ID PROGRESS NOTE CURRENT ABX: DAY #5 =>CEFTRIAXONE + AZITH 24H INTERVAL SUMMARY * TNS TO TELE FOR NEW ONSET SVT -- WBC rising -> s/p DECADRON IV 10/28/18 * TMAX 99.3 -- Without dyspnea on supplemental O2 -- no fevers, VSS * BNP elevated to 831 -- HTN READINGS INTERMITTENTLY w/LO -- suspect mild HTN heart disease DIAGNOSTIC IMAGING * 10/30/18 CXR: Atelectasis versus minimal infiltrates in the perihilar lower lungs.Scattered atelectasis in both lungs. Diffuse mild interstitial pro minence in both lungs. Interstitial prominence could be chronic or reflect mild interstitial edema. Hypoinflated lungs with an elevated right hemidiaphragm. MICRO * 10/28/18 BCX (-) * 10/28/18 (-)MRSA * 10/29/18 (-) INFLUENZA A/B PHYSICAL EXAMINATION: GENERAL: VSS, NAD HEENT: AT, NC, NECK: Supple, CHEST: Rise symmetrical HEART: Pulse RRR ABDOMEN: Deferred EXTREMITIES: Warm, dry SKIN: No rash, no diaphoresis ID ASSESSMENT 62 yo M admit with: 1. SIRS w/WBC rising -> s/p DECADRON IV 10/28/18 2. Community-acquired pneumonia/COPD exacerbation 3. Acute kidney injury with improving kidney function 4. History of lupus 5. Hypertension - QUERY HTN heart disease * BNP elevated to 831 -- HTN READINGS INTERMITTENTLY w/LO -- suspect mild HTN heart disease 6. Migraine headaches status post surgical intervention for Ciari malformation 7. Chronic intermittent nausea/vomiting -R/o GI etiology vs 2/2 migraines vs other = GI on the case 8. Chronic tobaccoism=> quit smoking 8 weeks ago 9. Hx of Anderson-Eduardo syndrome w/Levaquin = avoid Quinolones (-)MRSA ABX ALLERGIES: LEVAQUIN INVASIVES: PIV CURRENT ABX: DAY #5=>Ceftriaxone + Azith ID RECOMMENDATIONS/PLAN: 1. DC AZITH -- can prolong the QTc he is now v/SVT * WBC rising -> s/p DECADRON IV 10/28/18 2. Will continue to follow . Consultation Date/Type/Reason Admit Date/Time Oct 28, 2018 at 13:40 Initial Consult Date 10/29/18 Requesting Provider: CHRISTOPHER MOORE NP Date/Time of Note DATE: 11/01/18 TIME: 18:20 Exam/Review of Systems Exam Vitals Vital Signs Date Temp Pulse Resp B/P (MAP) Pulse Ox O2 O2 Flow FiO2 Time Delivery Rate 11/01/18 99.3 87 19 133/75 94 15:51 (94) 11/01/18 Nasal 3.0 10:04 Cannula 10/28/18 28 11:54 Intake and Output 10/31/18 10/31/18 11/01/18 1515:00 23:00 07:00 IntakeIntake Total 1680 ml 660 ml BalanceBalance 1680 ml 660 ml Results Result Diagram: 11/01/18 0506 11/01/18 0506 Results 24hrs Laboratory Tests Test 11/01/18 05:04 11/01/18 05:06 11/01/18 08:24 Magnesium Level 2.2 White Blood Count 17.5 H Red Blood Count 4.93 Hemoglobin 14.4 Hematocrit 42.8 Mean Corpuscular Volume 86.8 Mean Corpuscular Hemoglobin 29.2 Mean Corpuscular Hemoglobin Concent 33.6 Red Cell Distribution Width 12.4 Platelet Count 431 H Mean Platelet Volume 9.7 Immature Granulocytes % 0.400 Neutrophils % 54.1 Lymphocytes % 11.1 L Monocytes % 9.2 Eosinophils % 24.0 H Basophils % 1.2 Nucleated Red Blood Cells % 0.0 Immature Granulocytes # 0.070 H Neutrophils # 9.5 H Lymphocytes # 1.9 Monocytes # 1.6 H Eosinophils # 4.2 H Basophils # 0.2 H Nucleated Red Blood Cells # 0.0 Sodium Level 142 Potassium Level 4.0 Chloride Level 107 Carbon Dioxide Level 24 Anion Gap 11 Blood Urea Nitrogen 20 Creatinine 1.08 Est Glomerular Filtrat Rate mL/min > 60 Glucose Level 110 Calcium Level 9.0 Bedside Glucose 161 Medications Medication Current Medications Hydroxychloroquine Sulfate (Plaquenil) 200 mg BID PO Last administered on 11/01/18at 08:23; Admin Dose 200 MG; Start 10/28/18 at 21:00 Fluticasone/ Vilanterol (Breo Ellipta 100-25 Mcg Inh) 1 inh DAILY INH Last administered on 10/31/18at 08:51; Admin Dose 1 INH; Start 10/29/18 at 09:00 Hydralazine HCl (Apresoline) 10 mg Q4H PRN IV sbp>160 Last administered on 10/29/18 17:07; Admin Dose 10 MG; Start 10/28/18 at 15:30 IV Flush (NS 3 ml) 3 ml PER PROTOCOL IV ; Start 10/28/18 at 15:30 Ondansetron HCl (Zofran Inj) 4 mg Q6H PRN IV NAUSEA/VOMITING Last administered on 10/29/18 20:45; Admin Dose 4 MG; Start 10/28/18 at 15:30 Acetaminophen (Tylenol Supp) 650 mg Q6H PRN [place] .PAIN 1-3 OR TEMP; Start 10/28/18 at 15:30 Morphine Sulfate (morphine) 2 mg Q4H PRN IV .SEVERE PAIN 7-10 Last administered on 10/29/18 18:51; Admin Dose 2 MG; Start 10/28/18 at 15:30 Enoxaparin Sodium (Lovenox) 40 mg DAILY SC Last administered on 10/31/18 10:56; Admin Dose 40 MG; Start 10/29/18 at 09:00 Ceftriaxone Sodium 50 ml @ 100 mls/hr Q24H IVPB Last administered on 11/01/18 16:32; Admin Dose 100 MLS/HR; Start 10/28/18 at 17:00 Azithromycin 250 ml @ 250 mls/hr Q24H IVPB Last administered on 11/01/18 17:38; Admin Dose 250 MLS/HR; Start 10/28/18 at 18:00 Ondansetron HCl (Zofran Tab) 4 mg Q6H PRN PO NAUSEA AND/OR VOMITING; Start 10/28/18 at 16:00 Oxycodone HCl (Roxicodone) 30 mg BID PRN PO MODERATE PAIN LEVEL 4-6 Last administered on 10/29/18 01:58; Admin Dose 30 MG; Start 10/28/18 at 19:00 Tamsulosin HCl (Flomax) 0.4 mg HS PO Last administered on 10/31/18 21:28; Admin Dose 0.4 MG; Start 10/28/18 at 21:00 Sumatriptan Succinate (Imitrex) 50 mg PRN PRN PO MIGRAINE Last administered on 10/30/18 17:39; Admin Dose 50 MG; Start 10/28/18 at 19:30 Zolpidem Tartrate (Ambien) 5 mg HS MAY REPEAT X 1 PRN PO INSOMNIA Last administered on 10/31/18 21:25; Admin Dose 5 MG; Start 10/28/18 at 17:30 Oxycodone HCl (Oxycontin) 60 mg Q8 PO Last administered on 11/01/18 13:35; Admin Dose 60 MG; Start 10/28/18 at 22:00 Clonidine (Catapres) 0.1 mg Q4H PRN PO sbp>160 Last administered on 10/30/18 08:00; Admin Dose 0.1 MG; Start 10/29/18 at 09:00 Metoclopramide HCl (Reglan) 10 mg Q6 IV Last administered on 11/01/18 17:38; Admin Dose 10 MG; Start 10/29/18 at 18:00 Polyethylene Glycol (Miralax) 17 gm DAILY PO Last administered on 10/31/18 08:51; Admin Dose 17 GM; Start 10/30/18 at 09:00 Amlodipine Besylate (Norvasc) 10 mg DAILY PO Last administered on 11/01/18 08:23; Admin Dose 10 MG; Start 10/30/18 at 09:00 Lisinopril (Zestril) 10 mg DAILY PO Last administered on 11/01/18 08:23; Admin Dose 10 MG; Start 10/30/18 at 09:00 Levalbuterol (Xopenex Neb) 1.25 mg Q4H RESP THERAPY PRN HHN sob; Start 10/30/18 at 12:00 Famotidine (Pepcid) 20 mg BID PO Last administered on 11/01/18 08:23; Admin Dose 20 MG; Start 10/30/18 at 21:00 Metoprolol Tartrate (Lopressor) 25 mg BID PO ; Start 11/01/18 at 21:00 ILAN MEANS NP Nov 01, 2018 18:25
[2018-11-01 20:00] VITALS: BP 150/73; PULSE 108; PULSE 84; RESP 20
[2018-11-01] MEDS ORDERED: MAGNESIUM HYDROXIDE 30ML CUP PO PRN (20:30)
[2018-11-01] MEDS ORDERED: MAGNESIUM HYDROXIDE 30ML CUP PO ONE (20:30)
[2018-11-01] MEDS: TAMSULOSIN (SR) 0.4 MG CAP PO SCH (20:50)
[2018-11-01] MEDS: METOPROLOL 25 MG TAB PO SCH (20:51)
[2018-11-01] MEDS: ZOLPIDEM 5 MG TAB PO PRN (21:36)
[2018-11-02] VITALS: BP 130/67; PULSE 76; RESP 20
[2018-11-02] MEDS: METOCLOPRAMIDE 10 MG INJ IV SCH ×3 (00:18→12:16)
[2018-11-02 05:45] VITALS: BP 126/67; PULSE 86; RESP 20
[2018-11-02] MEDS: oxyCODONE (CR) 20 MG TAB [oxyCONTIN] PO SCH ×3 (05:53→22:24)
[2018-11-02 07:25] VITALS: BP 131/85; PULSE 83; RESP 18
[2018-11-02] MEDS: FLUTICASONE/VILANTEROL 100-25 INH SCH (08:33)
[2018-11-02] MEDS: FAMOTIDINE 20 MG TAB PO SCH ×2 (08:34→21:06)
[2018-11-02] MEDS: AMLODIPINE 10 MG TAB PO SCH (08:34)
[2018-11-02] MEDS: LISINOPRIL 10 MG TAB PO SCH (08:35)
[2018-11-02] MEDS: HYDROXYCHLOROQUINE 200 MG TAB PO SCH ×2 (08:35→21:06)
[2018-11-02] MEDS: METOPROLOL 25 MG TAB PO SCH ×2 (08:35→21:06)
--- NOTE | 2018-11-02 08:36 | PN ---
DATE: 11/02/2018 SUBJECTIVE: The patient is stable. No events overnight. OBJECTIVE: VITAL SIGNS: Blood pressure is 131/85, pulse 83, respiration 18, temperature 98.6. HEENT: Head is normocephalic. NECK: Supple. HEART: Regular rate. LUNGS: Show diminished breath sounds at the base. ABDOMEN: Soft, nontender to palpation without rebound or guarding. EXTREMITIES: Negative for clubbing, cyanosis, no edema. DERMATOLOGIC: No rashes. MUSCULOSKELETAL: No joint effusion. NEUROLOGIC: No change in exam. MEDICATIONS: The patient's medications have been reviewed. LABORATORY DATA: Has been reviewed. IMAGING STUDIES: Reviewed. ASSESSMENT AND PLAN: 1. Nonoliguric acute kidney injury on top of chronic kidney disease with previous baseline creatinin e of 1.4 mg/dL. Etiology of acute kidney injury is secondary to hemodynamics. Renal function has im proved. Continue to monitor. 2. Hypertension. Continue current blood pressure regimen. Up-titrate CHAD inhibitor as needed. 3. Mineral bone disorder. Monitor calcium and phosphorus levels. 4. Pneumonia. Continue antibiotic regimen. 5. Chronic obstructive pulmonary disease. Continue medical management. 6. History of lupus. 7. History of Chiari malformation. 8. Migraines. Continue medical management. 9. Arrhythmia. The patient was transferred to telemetry. The patient had an episode of SVT, status post metoprolol. Continue to monitor. Follow up with cardiology. Dictated By: ZAID BISHOP DO NR/NTS Conf#: [id number] DID#: [id number] CC: JENNIFER ACOSTA MD; RACHEAL MORTENSEN MD;*End*
[2018-11-02] MEDS: ENOXAPARIN 40 MG/0.4 ML SYG SC SCH (08:38)
[2018-11-02] MEDS: POLYETHYLENE GLYCOL 17 GM PACKET PO SCH (09:00)
[2018-11-02 11:39] VITALS: BP 135/77; PULSE 78; RESP 18
--- NOTE | 2018-11-02 12:00 | CONS ---
Consult Date/Type/Reason Admit Date/Time Oct 28, 2018 at 13:40 Initial Consult Date 10/29/18 Requesting Provider: CHRISTOPHER MOORE NP Date/Time of Note DATE: 11/02/18 TIME: 11:56 Subjective NO acute events - pt doing better now - no CP - will follow troponin - Stress test tomorrow. ROS: No fever, no chills, no nausea, no vomiting, no diarrhea/constipation - still SOB, but much better - will monitor clinically now Objective Vitals Vital Signs Date Temp Pulse Resp B/P (MAP) Pulse Ox O2 O2 Flow FiO2 Time Delivery Rate 11/02/18 98.8 78 18 135/77 92 11:39 (96) 11/02/18 Nasal 3.0 07:56 Cannula Intake and Output 11/01/18 11/01/18 11/02/18 1515:00 23:00 07:00 IntakeIntake Total 720 ml 300 ml 800 ml BalanceBalance 720 ml 300 ml 800 ml Exam General: WN/WD/NAD, AOx 3 HEENT: Unicetric/atraumatic/EOMI (follows commands) NECK: JVD elevated, no thyromegaly Lymph: no lymphadenopathy HEART: regular with no S3, II/ systolic murmur at apex, PMI L LUNGS: Coarse sounds ABD: soft, NT, ND, +BS : Intact Neuro: non focal SKIN: chronic changes EXT: trace edema Results/Medications Result Diagram: 11/02/18 0552 11/02/18 0552 Results 24 hrs Laboratory Tests Test 11/02/18 05:52 White Blood Count 18.3 H Red Blood Count 4.92 Hemoglobin 14.5 Hematocrit 42.9 Mean Corpuscular Volume 87.2 Mean Corpuscular Hemoglobin 29.5 Mean Corpuscular Hemoglobin Concent 33.8 Red Cell Distribution Width 12.6 Platelet Count 418 H Mean Platelet Volume 9.6 Immature Granulocytes % 0.500 H Neutrophils % 50.5 Lymphocytes % 11.9 L Monocytes % 9.0 Eosinophils % 26.8 H Basophils % 1.3 Nucleated Red Blood Cells % 0.0 Immature Granulocytes # 0.090 H Neutrophils # 9.3 H Lymphocytes # 2.2 Monocytes # 1.6 H Eosinophils # 4.9 H Basophils # 0.2 H Nucleated Red Blood Cells # 0.0 Sodium Level 142 Potassium Level 4.4 Chloride Level 107 Carbon Dioxide Level 27 Anion Gap 8 Blood Urea Nitrogen 23 H Creatinine 1.07 Est Glomerular Filtrat Rate mL/min > 60 Glucose Level 109 Calcium Level 9.0 Home Meds Reported Medications Ondansetron Hcl* (Zofran*) 4 Mg Tab, 4 MG PO Q6H PRN for NAUSEA AND OR VOMITING, TAB 10/28/18 Temazepam* (Temazepam*) 30 Mg Capsule, 30 MG PO HS PRN for INSOMNIA, CAP 10/28/18 Oxycodone Hcl* (Oxycontin*) 60 Mg Tab.sr.12h, 60 MG PO Q8H, TAB 10/28/18 Oxycodone Hcl* (Oxycontin*) 30 Mg Tab.sr.12h, 30 MG PO NEEDED, TAB 10/28/18 Rizatriptan Benzoate (Rizatriptan Benzoate) 10 Mg Tab.rapdis, 10 MG PO NEEDED PRN for MIGRAINE, TAB may repeat after 2 hours, MAX 30 mg/24 hour 10/28/18 Hydroxychloroquine Sulfate* (Hydroxychloroquine Sulfate*) 200 Mg Tablet, 200 MG PO BID, TAB 10/28/18 Clonidine Hcl* (Clonidine Hcl*) 0.2 Mg Tablet, 0.2 MG PO BID PRN for NEEDED, TAB 10/28/18 Tamsulosin Hcl* (Flomax*) 0.4 Mg Cap.er.24h, 0.4 MG PO HS, CAP 10/28/18 Sulfamethoxazole/Trimethoprim* (Bactrim Ds* Tablet) 1 Each Tablet, 1 TAB PO BID, TAB FOR 21 DAYS, START DATE 10/17/18 10/28/18 Medications Current Medications Hydroxychloroquine Sulfate (Plaquenil) 200 mg BID PO Last administered on 11/02/18at 08:35; Admin Dose 200 MG; Start 10/28/18 at 21:00 Fluticasone/ Vilanterol (Breo Ellipta 100-25 Mcg Inh) 1 inh DAILY INH Last administered on 11/02/18at 08:33; Admin Dose 1 INH; Start 10/29/18 at 09:00 Hydralazine HCl (Apresoline) 10 mg Q4H PRN IV sbp>160 Last administered on 10/29/18at 17:07; Admin Dose 10 MG; Start 10/28/18 at 15:30 IV Flush (NS 3 ml) 3 ml PER PROTOCOL IV ; Start 10/28/18 at 15:30 Ondansetron HCl (Zofran Inj) 4 mg Q6H PRN IV NAUSEA/VOMITING Last administered on 10/29/18 20:45; Admin Dose 4 MG; Start 10/28/18 at 15:30 Acetaminophen (Tylenol Supp) 650 mg Q6H PRN [place] .PAIN 1-3 OR TEMP; Start 10/28/18 at 15:30 Morphine Sulfate (morphine) 2 mg Q4H PRN IV .SEVERE PAIN 7-10 Last administered on 10/29/18 18:51; Admin Dose 2 MG; Start 10/28/18 at 15:30 Enoxaparin Sodium (Lovenox) 40 mg DAILY SC Last administered on 11/02/18 08:38; Admin Dose 40 MG; Start 10/29/18 at 09:00 Ceftriaxone Sodium 50 ml @ 100 mls/hr Q24H IVPB Last administered on 11/01/18 16:32; Admin Dose 100 MLS/HR; Start 10/28/18 at 17:00 Ondansetron HCl (Zofran Tab) 4 mg Q6H PRN PO NAUSEA AND/OR VOMITING; Start 10/28/18 at 16:00 Oxycodone HCl (Roxicodone) 30 mg BID PRN PO MODERATE PAIN LEVEL 4-6 Last administered on 10/29/18 01:58; Admin Dose 30 MG; Start 10/28/18 at 19:00 Tamsulosin HCl (Flomax) 0.4 mg HS PO Last administered on 11/01/18 20:50; Admin Dose 0.4 MG; Start 10/28/18 at 21:00 Sumatriptan Succinate (Imitrex) 50 mg PRN PRN PO MIGRAINE Last administered on 10/30/18 17:39; Admin Dose 50 MG; Start 10/28/18 at 19:30 Zolpidem Tartrate (Ambien) 5 mg HS MAY REPEAT X 1 PRN PO INSOMNIA Last administered on 11/01/18 21:36; Admin Dose 5 MG; Start 10/28/18 at 17:30 Oxycodone HCl (Oxycontin) 60 mg Q8 PO Last administered on 11/02/18 05:53; Admin Dose 60 MG; Start 10/28/18 at 22:00 Clonidine (Catapres) 0.1 mg Q4H PRN PO sbp>160 Last administered on 10/30/18at 08:00; Admin Dose 0.1 MG; Start 10/29/18 at 09:00 Metoclopramide HCl (Reglan) 10 mg Q6 IV Last administered on 11/02/18 05:52; Admin Dose 10 MG; Start 10/29/18 at 18:00 Polyethylene Glycol (Miralax) 17 gm DAILY PO Last administered on 10/31/18 08:51; Admin Dose 17 GM; Start 10/30/18 at 09:00 Amlodipine Besylate (Norvasc) 10 mg DAILY PO Last administered on 11/02/18 08:34; Admin Dose 10 MG; Start 10/30/18 at 09:00 Lisinopril (Zestril) 10 mg DAILY PO Last administered on 11/02/18 08:35; Admin Dose 10 MG; Start 10/30/18 at 09:00 Levalbuterol (Xopenex Neb) 1.25 mg Q4H RESP THERAPY PRN HHN sob; Start 10/30/18 at 12:00 Famotidine (Pepcid) 20 mg BID PO Last administered on 11/02/18 08:34; Admin Dose 20 MG; Start 10/30/18 at 21:00 Metoprolol Tartrate (Lopressor) 25 mg BID PO Last administered on 11/02/18 08:35; Admin Dose 25 MG; Start 11/01/18 at 21:00 Magnesium Hydroxide (Milk Of Mag) 30 ml BID PRN PO CONSTIPATION; Start 11/01/18 at 20:30 Assessment/Plan Hospital Course (Demo Recall) 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 2. Hypertension. Continue current blood pressure regimen. Up-titrate CHAD inhibitor as needed. 3. Mineral bone disorder. Monitor calcium and phosphorus levels. 4. Pneumonia. Continue antibiotic regimen. Con't anti-Bx. 5. Chronic obstructive pulmonary disease. Continue medical management. On rx now. 6. History of lupus. 7. History of Chiari malformation- defer to neurology. 8. Migraines. Continue medical management. 9. CP - on meds - stress test to follow tomorrow. IJEOMA BUITRAGO MD Nov 02, 2018 12:00
--- NOTE | 2018-11-02 12:23 | CONS ---
Assessment/Plan Assessment/Plan Hospital Course (Demo Recall) ID PROGRESS NOTE CURRENT ABX: DAY #6 =>CEFTRIAXONE s/p AZITH 11/02/18 0552 11/02/18 0552 24H INTERVAL SUMMARY * TNS TO TELE FOR NEW ONSET SVT AND CHEST PAIN -- Plan is for stress test tomorrow * SOB w/ambulation -- without dyspnea at rest in bed on supplemental O2 * WBC rising -> s/p DECADRON IV 10/28/18 * BNP elevated to 831 -- HTN READINGS INTERMITTENTLY w/LO -- suspect mild HTN heart disease DIAGNOSTIC IMAGING * 10/30/18 CXR: Atelectasis versus minimal infiltrates in the perihilar lower lungs.Scattered atelectasis in both lungs. Diffuse mild interstitial prominence in both lungs. Interstitial prominence could be chronic or reflect mild interstitial edema. Hypoinflated lungs with an elevated right hemidiaphragm. MICRO * 10/28/18 BCX (-) * 10/28/18 (-)MRSA * 10/29/18 (-) INFLUENZA A/B PHYSICAL EXAMINATION: GENERAL: VSS, NAD HEENT: AT, NC, NECK: Supple, CHEST: Rise symmetrical HEART: Pulse RRR ABDOMEN: Deferred EXTREMITIES: Warm, dry SKIN: No rash, no diaphoresis ID ASSESSMENT 62 yo M admit with: 1. SIRS w/WBC rising -> s/p DECADRON IV 10/28/18 2. Community-acquired pneumonia/COPD exacerbation 3. Acute kidney injury with improving kidney function 4. History of lupus 5. Hypertension - QUERY HTN heart disease * BNP elevated to 831 -- HTN READINGS INTERMITTENTLY w/LO -- suspect mild HTN heart disease 6. Migraine headaches status post surgical intervention for Ciari malformation 7. Chronic intermittent nausea/vomiting -R/o GI etiology vs 2/2 migraines vs other = GI on the case 8. Chronic tobaccoism=> quit smoking 8 weeks ago 9. Hx of Anderson-Eduardo syndrome w/Levaquin = avoid Quinolones (-)MRSA ABX ALLERGIES: LEVAQUIN INVASIVES: PIV CURRENT ABX: DAY #6=>Ceftriaxone s/p Azith ID RECOMMENDATIONS/PLAN: 1. CONTINUE CEFTRIAXONE -- S/P DC AZITH -- can prolong the QTc he is now v/SVT * WBC rising -> s/p DECADRON IV 10/28/18 * Sputum cx if able to produce 2. PLAN IS FOR CARDIAC STRESS TESTING . Consultation Date/Type/Reason Admit Date/Time Oct 28, 2018 at 13:40 Initial Consult Date 10/29/18 Requesting Provider: CHRISTOPHER MOORE NP Date/Time of Note DATE: 11/02/18 TIME: 12:17 Exam/Review of Systems Exam Vitals Vital Signs Date Temp Pulse Resp B/P (MAP) Pulse Ox O2 O2 Flow FiO2 Time Delivery Rate 11/02/18 98.8 78 18 135/77 92 11:39 (96) 11/02/18 Nasal 3.0 07:56 Cannula Intake and Output 11/01/18 11/01/18 11/02/18 1515:00 23:00 07:00 IntakeIntake Total 720 ml 300 ml 800 ml BalanceBalance 720 ml 300 ml 800 ml Results Result Diagram: 11/02/18 0552 11/02/18 0552 Results 24hrs Laboratory Tests Test 11/02/18 05:52 White Blood Count 18.3 H Red Blood Count 4.92 Hemoglobin 14.5 Hematocrit 42.9 Mean Corpuscular Volume 87.2 Mean Corpuscular Hemoglobin 29.5 Mean Corpuscular Hemoglobin Concent 33.8 Red Cell Distribution Width 12.6 Platelet Count 418 H Mean Platelet Volume 9.6 Immature Granulocytes % 0.500 H Neutrophils % 50.5 Lymphocytes % 11.9 L Monocytes % 9.0 Eosinophils % 26.8 H Basophils % 1.3 Nucleated Red Blood Cells % 0.0 Immature Granulocytes # 0.090 H Neutrophils # 9.3 H Lymphocytes # 2.2 Monocytes # 1.6 H Eosinophils # 4.9 H Basophils # 0.2 H Nucleated Red Blood Cells # 0.0 Sodium Level 142 Potassium Level 4.4 Chloride Level 107 Carbon Dioxide Level 27 Anion Gap 8 Blood Urea Nitrogen 23 H Creatinine 1.07 Est Glomerular Filtrat Rate mL/min > 60 Glucose Level 109 Calcium Level 9.0 Medications Medication Current Medications Hydroxychloroquine Sulfate (Plaquenil) 200 mg BID PO Last administered on 11/02/18at 08:35; Admin Dose 200 MG; Start 10/28/18 at 21:00 Fluticasone/ Vilanterol (Breo Ellipta 100-25 Mcg Inh) 1 inh DAILY INH Last administered on 11/02/18at 08:33; Admin Dose 1 INH; Start 10/29/18 at 09:00 Hydralazine HCl (Apresoline) 10 mg Q4H PRN IV sbp>160 Last administered on 10/29/18 17:07; Admin Dose 10 MG; Start 10/28/18 at 15:30 IV Flush (NS 3 ml) 3 ml PER PROTOCOL IV ; Start 10/28/18 at 15:30 Ondansetron HCl (Zofran Inj) 4 mg Q6H PRN IV NAUSEA/VOMITING Last administered on 10/29/18 20:45; Admin Dose 4 MG; Start 10/28/18 at 15:30 Acetaminophen (Tylenol Supp) 650 mg Q6H PRN [place] .PAIN 1-3 OR TEMP; Start 10/28/18 at 15:30 Morphine Sulfate (morphine) 2 mg Q4H PRN IV .SEVERE PAIN 7-10 Last administered on 10/29/18 18:51; Admin Dose 2 MG; Start 10/28/18 at 15:30 Enoxaparin Sodium (Lovenox) 40 mg DAILY SC Last administered on 11/02/18 08:38; Admin Dose 40 MG; Start 10/29/18 at 09:00 Ceftriaxone Sodium 50 ml @ 100 mls/hr Q24H IVPB Last administered on 11/01/18 16:32; Admin Dose 100 MLS/HR; Start 10/28/18 at 17:00 Ondansetron HCl (Zofran Tab) 4 mg Q6H PRN PO NAUSEA AND/OR VOMITING; Start 10/28/18 at 16:00 Oxycodone HCl (Roxicodone) 30 mg BID PRN PO MODERATE PAIN LEVEL 4-6 Last administered on 10/29/18 01:58; Admin Dose 30 MG; Start 10/28/18 at 19:00 Tamsulosin HCl (Flomax) 0.4 mg HS PO Last administered on 11/01/18 20:50; Admin Dose 0.4 MG; Start 10/28/18 at 21:00 Sumatriptan Succinate (Imitrex) 50 mg PRN PRN PO MIGRAINE Last administered on 10/30/18 17:39; Admin Dose 50 MG; Start 10/28/18 at 19:30 Zolpidem Tartrate (Ambien) 5 mg HS MAY REPEAT X 1 PRN PO INSOMNIA Last administered on 11/01/18 21:36; Admin Dose 5 MG; Start 10/28/18 at 17:30 Oxycodone HCl (Oxycontin) 60 mg Q8 PO Last administered on 11/02/18 05:53; Admin Dose 60 MG; Start 10/28/18 at 22:00 Clonidine (Catapres) 0.1 mg Q4H PRN PO sbp>160 Last administered on 10/30/18 08:00; Admin Dose 0.1 MG; Start 10/29/18 at 09:00 Metoclopramide HCl (Reglan) 10 mg Q6 IV Last administered on 11/02/18 05:52; Admin Dose 10 MG; Start 10/29/18 at 18:00 Polyethylene Glycol (Miralax) 17 gm DAILY PO Last administered on 10/31/18 08:51; Admin Dose 17 GM; Start 10/30/18 at 09:00 Amlodipine Besylate (Norvasc) 10 mg DAILY PO Last administered on 11/02/18 08:34; Admin Dose 10 MG; Start 10/30/18 at 09:00 Lisinopril (Zestril) 10 mg DAILY PO Last administered on 11/02/18 08:35; Admin Dose 10 MG; Start 10/30/18 at 09:00 Levalbuterol (Xopenex Neb) 1.25 mg Q4H RESP THERAPY PRN HHN sob; Start 10/30/18 at 12:00 Famotidine (Pepcid) 20 mg BID PO Last administered on 11/02/18 08:34; Admin Dose 20 MG; Start 10/30/18 at 21:00 Metoprolol Tartrate (Lopressor) 25 mg BID PO Last administered on 11/02/18 08:35; Admin Dose 25 MG; Start 11/01/18 at 21:00 Magnesium Hydroxide (Milk Of Mag) 30 ml BID PRN PO CONSTIPATION; Start 11/01/18 at 20:30 ILAN MEANS NP Nov 02, 2018 12:23
--- NOTE | 2018-11-02 13:26 | PN ---
Date/Time of Note Date/Time of Note DATE: 11/02/18 TIME: 13:25 Assessment/Plan VTE Prophylaxis Risk score (from Ns)>0 risk: 4 SCD applied (from Nsg): No SCD contraindicated: other (scds) Pharmacological prophylaxis: other (cds) Lines/Catheters IV [facility]from [facility] Saline Lock Assessment/Plan Hospital Course Assessment/Plan Summary Assessment and Plan: Assessment: Chronic intermittent nausea/vomiting -R/o GI etiology vs 2/2 migraines vs other Community-acquired pneumonia Normocytic anemia, mild DOMO- improved History of COPD History of lupus History of Chiari malformation -S/p surgical intervention 11 years ago -Migraines since surgery 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 Kent Subjective: Course reviewed with nursing staff Patient interviewed and examined All labs, imaging and other results reviewed No overnight events. Patient's nausea and vomiting has resolved. No complaints of abdominal pain or changes in bowel habits no overt signs of GI bleed. Discussed importance of following up with GI after discharge for endoscopic evaluation patient verbalized understanding PHYSICAL EXAMINATION: GENERAL: Well developed, well nourished, alert & oriented x 3, in no acute distress SKIN: Facial erythema HEAD: Normocephalic, atraumatic, no tenderness. EYES: Pupils equal reactive to light and accommodation, no discharge. EARS/NOSE AND THROAT: Ears normal, nose normal, NECK: Supple, no masses. CHEST: Inspection within normal limits. CARDIOVASCULAR: Heart: Regular rate and rhythm RESPIRATORY: Lungs clear to auscultation and percussion, no wheezing, no rubs GASTROINTESTINAL AND LIVER: Abdomen: Soft, non tenderness, non-distended, no hernias, no masses, no organomegaly, no ascites, no guarding, no rebound tenderness, normoactive bowel sounds. Rectal: Deferred. EXTREMITIES: No cyanosis, clubbing or edema Result Diagram: 11/02/18 0552 11/02/18 0552 Results 24hrs Laboratory Tests Test 11/02/18 05:52 11/02/18 06:00 White Blood Count 18.3 H Red Blood Count 4.92 Hemoglobin 14.5 Hematocrit 42.9 Mean Corpuscular Volume 87.2 Mean Corpuscular Hemoglobin 29.5 Mean Corpuscular Hemoglobin Concent 33.8 Red Cell Distribution Width 12.6 Platelet Count 418 H Mean Platelet Volume 9.6 Immature Granulocytes % 0.500 H Neutrophils % 50.5 Lymphocytes % 11.9 L Monocytes % 9.0 Eosinophils % 26.8 H Basophils % 1.3 Nucleated Red Blood Cells % 0.0 Immature Granulocytes # 0.090 H Neutrophils # 9.3 H Lymphocytes # 2.2 Monocytes # 1.6 H Eosinophils # 4.9 H Basophils # 0.2 H Nucleated Red Blood Cells # 0.0 Sodium Level 142 Potassium Level 4.4 Chloride Level 107 Carbon Dioxide Level 27 Anion Gap 8 Blood Urea Nitrogen 23 H Creatinine 1.07 Est Glomerular Filtrat Rate mL/min > 60 Glucose Level 109 Calcium Level 9.0 Troponin I 0.013 Exam/Review of Systems Exam Vitals Vital Signs Date Temp Pulse Resp B/P (MAP) Pulse Ox O2 O2 Flow FiO2 Time Delivery Rate 11/02/18 Nasal 2.0 13:21 Cannula 11/02/18 98.8 78 18 135/77 92 11:39 (96) Intake and Output 11/01/18 11/01/18 11/02/18 1515:00 23:00 07:00 IntakeIntake Total 720 ml 300 ml 800 ml BalanceBalance 720 ml 300 ml 800 ml Results Results 24hrs Laboratory Tests Test 11/02/18 05:52 11/02/18 06:00 White Blood Count 18.3 H Red Blood Count 4.92 Hemoglobin 14.5 Hematocrit 42.9 Mean Corpuscular Volume 87.2 Mean Corpuscular Hemoglobin 29.5 Mean Corpuscular Hemoglobin Concent 33.8 Red Cell Distribution Width 12.6 Platelet Count 418 H Mean Platelet Volume 9.6 Immature Granulocytes % 0.500 H Neutrophils % 50.5 Lymphocytes % 11.9 L Monocytes % 9.0 Eosinophils % 26.8 H Basophils % 1.3 Nucleated Red Blood Cells % 0.0 Immature Granulocytes # 0.090 H Neutrophils # 9.3 H Lymphocytes # 2.2 Monocytes # 1.6 H Eosinophils # 4.9 H Basophils # 0.2 H Nucleated Red Blood Cells # 0.0 Sodium Level 142 Potassium Level 4.4 Chloride Level 107 Carbon Dioxide Level 27 Anion Gap 8 Blood Urea Nitrogen 23 H Creatinine 1.07 Est Glomerular Filtrat Rate mL/min > 60 Glucose Level 109 Calcium Level 9.0 Troponin I 0.013 Medications Medication Current Medications Hydroxychloroquine Sulfate (Plaquenil) 200 mg BID PO Last administered on 11/02/18 08:35; Admin Dose 200 MG; Start 10/28/18 at 21:00 Fluticasone/ Vilanterol (Breo Ellipta 100-25 Mcg Inh) 1 inh DAILY INH Last administered on 11/02/18 08:33; Admin Dose 1 INH; Start 10/29/18 at 09:00 Hydralazine HCl (Apresoline) 10 mg Q4H PRN IV sbp>160 Last administered on 10/29/18 17:07; Admin Dose 10 MG; Start 10/28/18 at 15:30 IV Flush (NS 3 ml) 3 ml PER PROTOCOL IV ; Start 10/28/18 at 15:30 Ondansetron HCl (Zofran Inj) 4 mg Q6H PRN IV NAUSEA/VOMITING Last administered on 10/29/18 20:45; Admin Dose 4 MG; Start 10/28/18 at 15:30 Acetaminophen (Tylenol Supp) 650 mg Q6H PRN MD .PAIN 1-3 OR TEMP; Start 10/28/18 at 15:30 Morphine Sulfate (morphine) 2 mg Q4H PRN IV .SEVERE PAIN 7-10 Last administered on 10/29/18 18:51; Admin Dose 2 MG; Start 10/28/18 at 15:30 Enoxaparin Sodium (Lovenox) 40 mg DAILY SC Last administered on 11/02/18 08:38; Admin Dose 40 MG; Start 10/29/18 at 09:00 Ceftriaxone Sodium 50 ml @ 100 mls/hr Q24H IVPB Last administered on 11/01/18 16:32; Admin Dose 100 MLS/HR; Start 10/28/18 at 17:00 Ondansetron HCl (Zofran Tab) 4 mg Q6H PRN PO NAUSEA AND/OR VOMITING; Start 10/28/18 at 16:00 Oxycodone HCl (Roxicodone) 30 mg BID PRN PO MODERATE PAIN LEVEL 4-6 Last administered on 10/29/18 01:58; Admin Dose 30 MG; Start 10/28/18 at 19:00 Tamsulosin HCl (Flomax) 0.4 mg HS PO Last administered on 11/01/18 20:50; Admin Dose 0.4 MG; Start 10/28/18 at 21:00 Sumatriptan Succinate (Imitrex) 50 mg PRN PRN PO MIGRAINE Last administered on 10/30/18 17:39; Admin Dose 50 MG; Start 10/28/18 at 19:30 Zolpidem Tartrate (Ambien) 5 mg HS MAY REPEAT X 1 PRN PO INSOMNIA Last administered on 11/01/18 21:36; Admin Dose 5 MG; Start 10/28/18 at 17:30 Oxycodone HCl (Oxycontin) 60 mg Q8 PO Last administered on 11/02/18 05:53; Admin Dose 60 MG; Start 10/28/18 at 22:00 Clonidine (Catapres) 0.1 mg Q4H PRN PO sbp>160 Last administered on 10/30/18 08:00; Admin Dose 0.1 MG; Start 10/29/18 at 09:00 Metoclopramide HCl (Reglan) 10 mg Q6 IV Last administered on 11/02/18 12:16; Admin Dose 10 MG; Start 10/29/18 at 18:00 Polyethylene Glycol (Miralax) 17 gm DAILY PO Last administered on 10/31/18 08:51; Admin Dose 17 GM; Start 10/30/18 at 09:00 Amlodipine Besylate (Norvasc) 10 mg DAILY PO Last administered on 11/02/18 08:34; Admin Dose 10 MG; Start 10/30/18 at 09:00 Lisinopril (Zestril) 10 mg DAILY PO Last administered on 11/02/18 08:35; Admin Dose 10 MG; Start 10/30/18 at 09:00 Levalbuterol (Xopenex Neb) 1.25 mg Q4H RESP THERAPY PRN HHN sob; Start 10/30/18 at 12:00 Famotidine (Pepcid) 20 mg BID PO Last administered on 11/02/18 08:34; Admin Dose 20 MG; Start 10/30/18 at 21:00 Metoprolol Tartrate (Lopressor) 25 mg BID PO Last administered on 7/7/19at 08:35; Admin Dose 25 MG; Start 11/01/18 at 21:00 Magnesium Hydroxide (Milk Of Mag) 30 ml BID PRN PO CONSTIPATION; Start 11/01/18 at 20:30 HERNAN AYALA Nov 02, 2018 13:26
[2018-11-02] MEDS ORDERED: METOCLOPRAMIDE 10 MG INJ IV PRN (13:30)
[2018-11-02 16:00] VITALS: BP 142/76; PULSE 85; RESP 18
[2018-11-02] MEDS: CEFTRIAXONE 2 GM/50 ML (PMX) 50 ML IVPB SCH (16:25)
[2018-11-02 19:20] VITALS: BP 120/60; PULSE 74; RESP 18
--- NOTE | 2018-11-02 19:45 | PN ---
Date/Time of Note Date/Time of Note DATE: 11/02/18 TIME: 19:40 Assessment/Plan VTE Prophylaxis Risk score (from Ns)>0 risk: 4 SCD applied (from Ns): Yes Pharmacological prophylaxis: LMWH Lines/Catheters [facility] Saline Lock Assessment/Plan Hospital Course Assessment and plan 1. Community acquired pneumonia. -Continuing antibiotic treatment. - Patient does report allergy to Levaquin. 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 Suspect COPD with exacerbation. - Patient does have extensive cigarette smoking history. - continue breathing treatments - switched albuterol to levalbuterol due to reported tachycardia - smoking Cessation was advised. - Continue with nicotine patch. 3. Respiratory failure secondary to #1 and #2. - Continue with O2. 4. History of lupus. ' - continue patient's hydroxychloroquine. 5. Renal insufficiency. - monitor renal panel. - improving 6. Hypertension. - Will start antihypertensives. Will adjust as needed 7. History of Chiari malformation status post surgical intervention 11 years ago. - Patient does state that he does have chronic pain secondary to this as well as migraines. continue on analgesics. 8. Migraines. - Continue with analgesics. 9 . Nausea.vomiting - improved - scopalamine patch - improved 10. SVT - improved - continue BB - plan for stress test DISPO/PLAN: Plan for stress test. titrate off o2. continue current tx Discussed POC with Dr. Kinsey Result Diagram: 11/02/18 0552 11/02/18 0552 Results 24hrs Laboratory Tests Test 11/02/18 05:52 11/02/18 06:00 White Blood Count 18.3 H Red Blood Count 4.92 Hemoglobin 14.5 Hematocrit 42.9 Mean Corpuscular Volume 87.2 Mean Corpuscular Hemoglobin 29.5 Mean Corpuscular Hemoglobin Concent 33.8 Red Cell Distribution Width 12.6 Platelet Count 418 H Mean Platelet Volume 9.6 Immature Granulocytes % 0.500 H Neutrophils % 50.5 Lymphocytes % 11.9 L Monocytes % 9.0 Eosinophils % 26.8 H Basophils % 1.3 Nucleated Red Blood Cells % 0.0 Immature Granulocytes # 0.090 H Neutrophils # 9.3 H Lymphocytes # 2.2 Monocytes # 1.6 H Eosinophils # 4.9 H Basophils # 0.2 H Nucleated Red Blood Cells # 0.0 Sodium Level 142 Potassium Level 4.4 Chloride Level 107 Carbon Dioxide Level 27 Anion Gap 8 Blood Urea Nitrogen 23 H Creatinine 1.07 Est Glomerular Filtrat Rate mL/min > 60 Glucose Level 109 Calcium Level 9.0 Troponin I 0.013 Subjective 24 Hr Interval Summary Free Text/Dictation no reports of palpitations. reports better breathing today Exam/Review of Systems Exam Vitals Vital Signs Date Temp Pulse Resp B/P (MAP) Pulse Ox O2 O2 Flow FiO2 Time Delivery Rate 11/02/18 98.1 74 18 120/60 96 19:20 (80) 11/02/18 Nasal 2.0 13:21 Cannula Intake and Output 11/01/18 11/01/18 11/02/18 1515:00 23:00 07:00 IntakeIntake Total 720 ml 300 ml 800 ml BalanceBalance 720 ml 300 ml 800 ml Exam Constitutional: alert, oriented Psych: nl mood/affect Head: normocephalic Respiratory: clear to auscultation Cardiovascular: irregular rhythm Neurological: [employer] II-XII intact, nl mental status, nl speech Skin: nl turgor Results Results 24hrs Laboratory Tests Test 11/02/18 05:52 11/02/18 06:00 White Blood Count 18.3 H Red Blood Count 4.92 Hemoglobin 14.5 Hematocrit 42.9 Mean Corpuscular Volume 87.2 Mean Corpuscular Hemoglobin 29.5 Mean Corpuscular Hemoglobin Concent 33.8 Red Cell Distribution Width 12.6 Platelet Count 418 H Mean Platelet Volume 9.6 Immature Granulocytes % 0.500 H Neutrophils % 50.5 Lymphocytes % 11.9 L Monocytes % 9.0 Eosinophils % 26.8 H Basophils % 1.3 Nucleated Red Blood Cells % 0.0 Immature Granulocytes # 0.090 H Neutrophils # 9.3 H Lymphocytes # 2.2 Monocytes # 1.6 H Eosinophils # 4.9 H Basophils # 0.2 H Nucleated Red Blood Cells # 0.0 Sodium Level 142 Potassium Level 4.4 Chloride Level 107 Carbon Dioxide Level 27 Anion Gap 8 Blood Urea Nitrogen 23 H Creatinine 1.07 Est Glomerular Filtrat Rate mL/min > 60 Glucose Level 109 Calcium Level 9.0 Troponin I 0.013 Medications Medication Current Medications Hydroxychloroquine Sulfate (Plaquenil) 200 mg BID PO Last administered on 11/02/18 08:35; Admin Dose 200 MG; Start 10/28/18 at 21:00 Fluticasone/ Vilanterol (Breo Ellipta 100-25 Mcg Inh) 1 inh DAILY INH Last administered on 11/02/18 08:33; Admin Dose 1 INH; Start 10/29/18 at 09:00 Hydralazine HCl (Apresoline) 10 mg Q4H PRN IV sbp>160 Last administered on 17:07; Admin Dose 10 MG; Start 10/28/18 at 15:30 IV Flush (NS 3 ml) 3 ml PER PROTOCOL IV ; Start 10/28/18 at 15:30 Ondansetron HCl (Zofran Inj) 4 mg Q6H PRN IV NAUSEA/VOMITING Last administered on 10/29/18 20:45; Admin Dose 4 MG; Start 10/28/18 at 15:30 Acetaminophen (Tylenol Supp) 650 mg Q6H PRN [place] .PAIN 1-3 OR TEMP; Start 10/28/18 at 15:30 Morphine Sulfate (morphine) 2 mg Q4H PRN IV .SEVERE PAIN 7-10 Last administered on 10/29/18 18:51; Admin Dose 2 MG; Start 10/28/18 at 15:30 Enoxaparin Sodium (Lovenox) 40 mg DAILY SC Last administered on 11/02/18 08:38; Admin Dose 40 MG; Start 10/29/18 at 09:00 Ceftriaxone Sodium 50 ml @ 100 mls/hr Q24H IVPB Last administered on 11/02/18 16:25; Admin Dose 100 MLS/HR; Start 10/28/18 at 17:00 Ondansetron HCl (Zofran Tab) 4 mg Q6H PRN PO NAUSEA AND/OR VOMITING; Start 10/28/18 at 16:00 Oxycodone HCl (Roxicodone) 30 mg BID PRN PO MODERATE PAIN LEVEL 4-6 Last administered on 10/29/18 01:58; Admin Dose 30 MG; Start 10/28/18 at 19:00 Tamsulosin HCl (Flomax) 0.4 mg HS PO Last administered on 11/01/18 20:50; Admin Dose 0.4 MG; Start 10/28/18 at 21:00 Sumatriptan Succinate (Imitrex) 50 mg PRN PRN PO MIGRAINE Last administered on 10/30/18 17:39; Admin Dose 50 MG; Start 10/28/18 at 19:30 Zolpidem Tartrate (Ambien) 5 mg HS MAY REPEAT X 1 PRN PO INSOMNIA Last administered on 11/01/18 21:36; Admin Dose 5 MG; Start 10/28/18 at 17:30 Oxycodone HCl (Oxycontin) 60 mg Q8 PO Last administered on 11/02/18 14:33; Admin Dose 60 MG; Start 10/28/18 at 22:00 Clonidine (Catapres) 0.1 mg Q4H PRN PO sbp>160 Last administered on 10/30/18 08:00; Admin Dose 0.1 MG; Start 10/29/18 at 09:00 Polyethylene Glycol (Miralax) 17 gm DAILY PO Last administered on 10/31/18 08:51; Admin Dose 17 GM; Start 10/30/18 at 09:00 Amlodipine Besylate (Norvasc) 10 mg DAILY PO Last administered on 11/02/18 08:34; Admin Dose 10 MG; Start 10/30/18 at 09:00 Lisinopril (Zestril) 10 mg DAILY PO Last administered on 11/02/18 08:35; Admin Dose 10 MG; Start 10/30/18 at 09:00 Levalbuterol (Xopenex Neb) 1.25 mg Q4H RESP THERAPY PRN HHN sob; Start 10/30/18 at 12:00 Famotidine (Pepcid) 20 mg BID PO Last administered on 11/02/18 08:34; Admin Dose 20 MG; Start 10/30/18 at 21:00 Metoprolol Tartrate (Lopressor) 25 mg BID PO Last administered on 11/02/18 08:35; Admin Dose 25 MG; Start 11/01/18 at 21:00 Magnesium Hydroxide (Milk Of Mag) 30 ml BID PRN PO CONSTIPATION; Start 11/01/18 at 20:30 Metoclopramide HCl (Reglan) 10 mg Q6H PRN IV NAUSEA/VOMITING; Start 11/02/18 at 13:30 CHRISTOPHER MOORE NP Nov 02, 2018 19:45
[2018-11-02] MEDS: ZOLPIDEM 5 MG TAB PO PRN (21:06)
[2018-11-02] MEDS: TAMSULOSIN (SR) 0.4 MG CAP PO SCH (21:06)
[2018-11-03 00:09] VITALS: BP 122/75; PULSE 76; RESP 18
[2018-11-03 04:15] VITALS: BP 125/77; PULSE 103; RESP 19
[2018-11-03] MEDS: oxyCODONE (CR) 20 MG TAB [oxyCONTIN] PO SCH ×3 (06:00→21:10)
--- NOTE | 2018-11-03 06:17 | CONS ---
DATE OF ADMISSION: 10/28/2018 DATE OF CONSULTATION: 11/01/2018 TYPE OF CONSULTATION: Pulmonary. REFERRING PHYSICIAN: Jennifer Mota MD REASON FOR EVALUATION: Supraventricular tachycardia. HISTORY OF PRESENT ILLNESS: Mr. Cross is a pleasant 62-year-old gentleman with history of hyper tension, dyslipidemia, history of Chiari malformation, history of COPD as well as lupus, who comes to the [facility] initially for evaluation of febrile illness with pneumonia. The patient was treated on 10/30 when he had episodes of supraventricular tachycardia with rapid rate of 170, a rap id response was called and the patient was converted back to sinus rhythm with metoprolol. I reviewe d his EKG carefully. Has a narrow complex tachycardia at the rate of 170, most consistent with AVNRT both by the induction mode as well as the resolution to beta blockers fairly confirmatory. The fidelia ent appears to be hemodynamically stable at this particular point. As a result of this event, he was transferred to telemetry. His BNP was slightly elevated and I do not appreciate a troponin level wh ich I will check shortly. If this is truly AVNRT and the patient will most likely be benefiting from ablative therapy which could be done as an outpatient once his pneumonia is better. From a cardiac standpoint, we will obtain 2D echo. The patient will have a stress test because of reported chest paulina n during this episode. Other than that, conservative therapy is expected at this particular point. He can tolerate a small dose of beta baldomero. PAST MEDICAL HISTORY: 1. History of hypertension, dyslipidemia, history of lupus, history of COPD, history of Chiari malf ormation, history of heart failure with preserved ejection fraction, diastolic dysfunction prior. 2. History of past tobacco use. ALLERGIES: PATIENT IS ALLERGIC TO LEVOFLOXACIN. SOCIAL HISTORY: Has history of tobacco, does not drink, does not use any drugs. FAMILY HISTORY: Negative for sudden cardiac or premature coronary artery disease. MEDICATIONS: Here includes: 1. Famotidine. 2. Amlodipine. 3. Lisinopril 10 mg once a day. 4. Clonidine. 5. Tamsulosin. 6. Oxycodone. REVIEW OF SYSTEMS: CONSTITUTIONAL: No fevers, no chills, recent weight change. HEENT: No changes in vision or hearing. CARDIAC: Chest pain reported during SVT. RESPIRATORY: Short of breath, acute on chronic with febrile illness. GASTROINTESTINAL: No nausea, vomiting. GENITOURINARY: . NEUROLOGIC: Chiari malformation. PHYSICAL EXAMINATION: VITAL SIGNS: Temperature is 97.9, heart rate is 86, blood pressure 135/81. GENERAL: He is a thin gentleman in no acute distress, alert and oriented x3, aware of his condition. HEAD: Normocephalic, atraumatic. Eyes anicteric. NECK: Supple. JVD 6-7 cm with no lymphadenopathy. HEART: Regular with soft holosystolic murmur. PMI is nondisplaced. LUNGS: Coarse with scattered wheezing. ABDOMEN: Distended, bowel sounds are present. There is no hepatosplenomegaly. : with minimal wheezing. GENITOURINARY: . LABORATORY DATA: ECG read by me. At baseline shows sinus rhythm without any preexcitation. He has tachycardia. CT shows narrow complex tachycardia, likely AVNRT. LABORATORY DATA: Sodium 140, potassium 4.0, BUN is 20, creatinine 1.0. Troponin is still pending. BNP is 831. White blood cell count 17.5. Hemoglobin 4.4, platelets 431. ASSESSMENT AND PLAN: 1. Supraventricular tachycardia. Based on my assessment and mode of termination and initiation most likely AVNRT. I am going to add a small dose of beta baldomero to the patient's regimen to see if he can tolerate it. Other than that, might need an outpatient ablation. 2. Chest pain. The patient had chest pain at the time of AVNRT. Will facilitate a stress test to r ule out ischemia once the patient is stable. 3. Pneumonia. Continue antibiotic therapy. 4. Chronic obstructive pulmonary disease. Continue chronic obstructive pulmonary disease therapy as needed. 5. Renal insufficiency. Creatinine is stable. Dr. Padilla follows. The patient with good urine ou tput now. 6. Elevated BNP in the setting of SVT, possibly acute decompensation. The patient had a 2D echo dur ing last admission which showed preserved ejection fraction. I do not think that further 2D echo keith surement is necessary, but if down, I will take a look. I would like to thank Dr. Mota for referring this patient for my evaluation. Dictated By: IJEOMA BUITRAGO MD ML/LOUIE Conf#: [id number] DID#: [id number] CC: JENNIFER MOTA MD;*EndCC*
[2018-11-03 07:23] VITALS: BP 109/77; PULSE 80; RESP 18
[2018-11-03] MEDS: POLYETHYLENE GLYCOL 17 GM PACKET PO SCH (08:17)
[2018-11-03] MEDS: FLUTICASONE/VILANTEROL 100-25 INH SCH (08:17)
[2018-11-03] MEDS: HYDROXYCHLOROQUINE 200 MG TAB PO SCH ×2 (08:18→22:45)
[2018-11-03] MEDS: FAMOTIDINE 20 MG TAB PO SCH ×2 (08:18→21:10)
[2018-11-03] MEDS: AMLODIPINE 10 MG TAB PO SCH (08:18)
[2018-11-03] MEDS: METOPROLOL 25 MG TAB PO SCH ×2 (08:18→21:10)
[2018-11-03] MEDS: LISINOPRIL 10 MG TAB PO SCH (08:18)
[2018-11-03] MEDS: ENOXAPARIN 40 MG/0.4 ML SYG SC SCH (08:22)
[2018-11-03] MEDS: oxyCODONE 15 MG TAB PO PRN (08:25)
--- NOTE | 2018-11-03 08:41 | PN ---
DATE: 11/03/2018 SUBJECTIVE: The patient is stable, no events overnight. No fevers, chills, nausea or vomiting. OBJECTIVE: VITAL SIGNS: Blood pressure is 109/77, pulse 80, respirations 18, temperature 98.4. HEENT: Head is normocephalic. NECK: Supple. HEART: Regular rate. LUNGS: Show diminished breath sounds at the base. ABDOMEN: Soft, nontender to palpation without rebound or guarding. EXTREMITIES: Negative for clubbing, cyanosis, no edema. DERMATOLOGIC: No rashes. MUSCULOSKELETAL: No joint effusion. NEUROLOGIC: No change in exam. MEDICATIONS: Reviewed. LABORATORY DATA: Reviewed. IMAGING STUDIES: Reviewed. ASSESSMENT AND PLAN: 1. Nonoliguric acute kidney injury on top of chronic kidney disease with previous baseline creatinin e of 1.4 mg/dL. Etiology of acute kidney injury is secondary to hemodynamics. Renal function is imp roved. Continue to monitor. 2. Hypertension. Continue current blood pressure regimen, up titrate CHAD inhibitor as needed. 3. Mineral bone disorder. Monitor calcium and phosphorus levels. 4. Pneumonia. Continue current antibiotic regimen. 5. Chronic obstructive pulmonary disease. Continue medical management. 6. History of lupus. 7. History of Chiari malformation. 8. Migraines. Continue current treatment plan. 9. Arrhythmia, episode of SVT. The patient is currently in sinus rhythm. Continue to monitor. Raghu nichols up with Cardiology. Dictated By: ZAID BISHOP DO NR/NTS Conf#: [id number] DID#: [id number] CC: JENNIFER ACOSTA MD; RACHEAL MORTENSEN MD;*End*
--- NOTE | 2018-11-03 10:29 | PN ---
Date/Time of Note Date/Time of Note DATE: 11/03/18 TIME: 10:28 Assessment/Plan VTE Prophylaxis Risk score (from Nsg)>0 risk: 1 SCD applied (from Nsg): Yes Pharmacological prophylaxis: LMWH Lines/Catheters IV Catheter Type (from Nrs): Saline Lock Assessment/Plan Hospital Course SUBJECTIVE: Denies any chest pain. OBJECTIVE: Physical Exam General: Adequately build 62 year-old male lying in bed in no apparent distress. HEENT: Normocephalic, atraumatic. Eyes: Anicteric sclerae, conjunctivae clear. ENT: Nasal septum midline, oral mucosa is dry. Neck supple. Respiratory: Bilaterally diminished breath sounds. No use of accessory muscles of respiration. B/L coarse breath sounds. Cardiovascular: S1, S2 heard. Regular rate and rhythm. Abdomen: Soft, nontender, and nondistended. Genitourinary: Deferred. Extremities: No cyanosis, no clubbing, no edema. Peripheral pulses palpable. Neurologic: The patient is awake, alert, and oriented. Skin: Normal skin turgor. No skin rashes. Labs & Vitals per chart ASSESSMENT & PLAN 62-year-old male with a past medical history of lupus, Chiari malformation status post brain [id number] years ago, chronic pain, HTN, prostate hypertrophy, COPD, and migraine headaches who presented to the emergency room with a chief complaint of dyspnea with chest x-ray showing mild bibasilar opacities with underlying leukocytosis, was admitted to inpatient setting for further treatment and evaluation. 1. Community-acquired pneumonia. Continue Rocephin. The patient had an allergic reaction to fluoroquinolones. 2. COPD. Continue inhaled bronchodilators (SAB and LABA). 3. Hypertension. Continue antihypertensives. 4. Supraventricular tachycardia. Continue beta-blockers. Patient being followed by cardiology. 5. Acute nonoliguric kidney injury. Resolved. Being followed by nephrology. 6. Migraine headaches. Continue ergot alkaloids. 7. Lupus. Continue hydroxychloroquine. 8. History of Chiari malformation, status post surgical intervention. 9. Fluids, electrolytes, and nutrition. Regular diet. 10. DVT prophylaxis. Subcutaneous Lovenox. 11. Plan. Continue antimicrobials as per ID. Continue beta-blockers. Patient scheduled for cardiac stress test today. The patient was seen in collaboration with Dr. Coleman. Result Diagram: 7/8/19 0611 7/8/19 0611 Results 24hrs Laboratory Tests Test 11/03/18 06:11 White Blood Count 17.7 H Red Blood Count 4.90 Hemoglobin 14.3 Hematocrit 42.9 Mean Corpuscular Volume 87.6 Mean Corpuscular Hemoglobin 29.2 Mean Corpuscular Hemoglobin Concent 33.3 Red Cell Distribution Width 12.5 Platelet Count 411 Mean Platelet Volume 9.6 Immature Granulocytes % 0.600 H Neutrophils % 51.5 Lymphocytes % 10.1 L Monocytes % 9.8 Eosinophils % 26.6 H Basophils % 1.4 Nucleated Red Blood Cells % 0.0 Immature Granulocytes # 0.110 H Neutrophils # 9.1 H Lymphocytes # 1.8 Monocytes # 1.7 H Eosinophils # 4.7 H Basophils # 0.2 H Nucleated Red Blood Cells # 0.0 Sodium Level 140 Potassium Level 4.5 Chloride Level 106 Carbon Dioxide Level 26 Anion Gap 8 Blood Urea Nitrogen 25 H Creatinine 1.10 Est Glomerular Filtrat Rate mL/min > 60 Glucose Level 106 Calcium Level 9.2 Exam/Review of Systems Exam Vitals Vital Signs Date Temp Pulse Resp B/P (MAP) Pulse Ox O2 O2 Flow FiO2 Time Delivery Rate 11/03/18 Nasal 2.0 08:00 Cannula 11/03/18 98.4 80 18 109/77 90 07:23 (88) Intake and Output 11/02/18 11/02/18 11/03/18 1515:00 23:00 07:00 IntakeIntake Total 600 ml 500 ml 600 ml BalanceBalance 600 ml 500 ml 600 ml Results Results 24hrs Laboratory Tests Test 11/03/18 06:11 White Blood Count 17.7 H Red Blood Count 4.90 Hemoglobin 14.3 Hematocrit 42.9 Mean Corpuscular Volume 87.6 Mean Corpuscular Hemoglobin 29.2 Mean Corpuscular Hemoglobin Concent 33.3 Red Cell Distribution Width 12.5 Platelet Count 411 Mean Platelet Volume 9.6 Immature Granulocytes % 0.600 H Neutrophils % 51.5 Lymphocytes % 10.1 L Monocytes % 9.8 Eosinophils % 26.6 H Basophils % 1.4 Nucleated Red Blood Cells % 0.0 Immature Granulocytes # 0.110 H Neutrophils # 9.1 H Lymphocytes # 1.8 Monocytes # 1.7 H Eosinophils # 4.7 H Basophils # 0.2 H Nucleated Red Blood Cells # 0.0 Sodium Level 140 Potassium Level 4.5 Chloride Level 106 Carbon Dioxide Level 26 Anion Gap 8 Blood Urea Nitrogen 25 H Creatinine 1.10 Est Glomerular Filtrat Rate mL/min > 60 Glucose Level 106 Calcium Level 9.2 Medications Medication Current Medications Hydroxychloroquine Sulfate (Plaquenil) 200 mg BID PO Last administered on 11/03/18 08:18; Admin Dose 200 MG; Start 10/28/18 at 21:00 Fluticasone/ Vilanterol (Breo Ellipta 100-25 Mcg Inh) 1 inh DAILY INH Last administered on 11/03/18 08:17; Admin Dose 1 INH; Start 10/29/18 at 09:00 Hydralazine HCl (Apresoline) 10 mg Q4H PRN IV sbp>160 Last administered on 10/29/18 17:07; Admin Dose 10 MG; Start 10/28/18 at 15:30 IV Flush (NS 3 ml) 3 ml PER PROTOCOL IV ; Start 10/28/18 at 15:30 Ondansetron HCl (Zofran Inj) 4 mg Q6H PRN IV NAUSEA/VOMITING Last administered on 10/29/18 20:45; Admin Dose 4 MG; Start 10/28/18 at 15:30 Acetaminophen (Tylenol Supp) 650 mg Q6H PRN [place] .PAIN 1-3 OR TEMP; Start 10/28/18 at 15:30 Morphine Sulfate (morphine) 2 mg Q4H PRN IV .SEVERE PAIN 7-10 Last administered on 10/29/18 18:51; Admin Dose 2 MG; Start 10/28/18 at 15:30 Enoxaparin Sodium (Lovenox) 40 mg DAILY SC Last administered on 11/03/18 08:22; Admin Dose 40 MG; Start 10/29/18 at 09:00 Ceftriaxone Sodium 50 ml @ 100 mls/hr Q24H IVPB Last administered on 11/02/18 16:25; Admin Dose 100 MLS/HR; Start 10/28/18 at 17:00 Ondansetron HCl (Zofran Tab) 4 mg Q6H PRN PO NAUSEA AND/OR VOMITING; Start 10/28 at 16:00 Oxycodone HCl (Roxicodone) 30 mg BID PRN PO MODERATE PAIN LEVEL 4-6 Last administered on 11/03/18 08:25; Admin Dose 30 MG; Start 10/28/18 at 19:00 Tamsulosin HCl (Flomax) 0.4 mg HS PO Last administered on 11/02/18 21:06; Admin Dose 0.4 MG; Start 10/28/18 at 21:00 Sumatriptan Succinate (Imitrex) 50 mg PRN PRN PO MIGRAINE Last administered on 10/30/18 17:39; Admin Dose 50 MG; Start 10/28/18 at 19:30 Zolpidem Tartrate (Ambien) 5 mg HS MAY REPEAT X 1 PRN PO INSOMNIA Last administered on 11/02/18 21:06; Admin Dose 5 MG; Start 10/28/18 at 17:30 Oxycodone HCl (Oxycontin) 60 mg Q8 PO Last administered on 11/02/18 22:24; Admin Dose 60 MG; Start 10/28/18 at 22:00 Clonidine (Catapres) 0.1 mg Q4H PRN PO sbp>160 Last administered on 10/30/18 08:00; Admin Dose 0.1 MG; Start 10/29/18 at 09:00 Polyethylene Glycol (Miralax) 17 gm DAILY PO Last administered on 10/31/18 08:51; Admin Dose 17 GM; Start 10/30/18 at 09:00 Amlodipine Besylate (Norvasc) 10 mg DAILY PO Last administered on 11/03/18 08:18; Admin Dose 10 MG; Start 10/30/18 at 09:00 Lisinopril (Zestril) 10 mg DAILY PO Last administered on 11/03/18 08:18; Admin Dose 10 MG; Start 10/30/18 at 09:00 Levalbuterol (Xopenex Neb) 1.25 mg Q4H RESP THERAPY PRN HHN sob; Start 10/30/18 at 12:00 Famotidine (Pepcid) 20 mg BID PO Last administered on 11/03/18 08:18; Admin Dose 20 MG; Start 10/30/18 at 21:00 Metoprolol Tartrate (Lopressor) 25 mg BID PO Last administered on 11/03/18 08:18; Admin Dose 25 MG; Start 11/01/18 at 21:00 Magnesium Hydroxide (Milk Of Mag) 30 ml BID PRN PO CONSTIPATION; Start 11/01/18 at 20:30 Metoclopramide HCl (Reglan) 10 mg Q6H PRN IV NAUSEA/VOMITING; Start 11/02/18 at 13:30 MONTY TALLEY NP Nov 03, 2018 10:29
[2018-11-03] MEDS ORDERED: REGADENOSON 0.4 MG/5 ML SYG ONE (10:45)
--- NOTE | 2018-11-03 11:21 | CONS ---
Assessment/Plan Assessment/Plan Hospital Course (Demo Recall) IMP: 1.Chest pain-neg trop x 3 2.shortness of breath 3.COPD 4.renal insuff Recc: -Tele -Contineu norvasc -Continue zestril -Continu abx's and f/u cx data -Lexiscan stress test today Consultation Date/Type/Reason Admit Date/Time Oct 28, 2018 at 13:40 Initial Consult Date 10/29/18 Type of Consult Cardiology Reason for Consultation chest pain/SVT Requesting Provider: CHRISTOPHER MOORE NP Date/Time of Note DATE: 11/03/18 TIME: 11:16 Exam/Review of Systems Vital Signs Vitals Vital Signs Date Temp Pulse Resp B/P (MAP) Pulse Ox O2 O2 Flow FiO2 Time Delivery Rate 11/03/18 Nasal 2.0 08:00 Cannula 11/03/18 98.4 80 18 109/77 90 07:23 (88) Intake and Output 11/02/18 11/02/18 11/03/18 1414:59 22:59 06:59 IntakeIntake Total 600 ml 500 ml 600 ml BalanceBalance 600 ml 500 ml 600 ml Exam Exam Review of Systems: CONSTITUTIONAL: No fevers, chills. PULMONARY: No sob CARDIOVASCULAR: No chest pain/palpitations GASTROINTESTINAL: No nausea/vomiting. GENITOURINARY: No hematuria/dysuria. MUSCULOSKELETAL: No myagias/arthalgias. PSYCHIATRIC: The patient denies depression. NEUROLOGIC: No weakness Constitutional: alert, oriented Psych: no complaints Head: normocephalic Eyes: nl conjunctiva ENMT: mucosa pink and moist Neck: supple, jvd (9 cm water) Respiratory: clear to auscultation Cardiovascular: regular rate and rhythm Gastrointestinal: soft, non-tender Musculoskeletal: muscle tone (normal) Extremities: edema (none) Neurological: other (No focal deficits) Labs Result Diagram: 11/03/18 0611 11/03/18 0611 Results 24hrs Laboratory Tests Test 11/03/18 06:11 White Blood Count 17.7 H Red Blood Count 4.90 Hemoglobin 14.3 Hematocrit 42.9 Mean Corpuscular Volume 87.6 Mean Corpuscular Hemoglobin 29.2 Mean Corpuscular Hemoglobin Concent 33.3 Red Cell Distribution Width 12.5 Platelet Count 411 Mean Platelet Volume 9.6 Immature Granulocytes % 0.600 H Neutrophils % 51.5 Lymphocytes % 10.1 L Monocytes % 9.8 Eosinophils % 26.6 H Basophils % 1.4 Nucleated Red Blood Cells % 0.0 Immature Granulocytes # 0.110 H Neutrophils # 9.1 H Lymphocytes # 1.8 Monocytes # 1.7 H Eosinophils # 4.7 H Basophils # 0.2 H Nucleated Red Blood Cells # 0.0 Sodium Level 140 Potassium Level 4.5 Chloride Level 106 Carbon Dioxide Level 26 Anion Gap 8 Blood Urea Nitrogen 25 H Creatinine 1.10 Est Glomerular Filtrat Rate mL/min > 60 Glucose Level 106 Calcium Level 9.2 Medications Medications Current Medications Hydroxychloroquine Sulfate (Plaquenil) 200 mg BID PO Last administered on 11/03/18 08:18; Admin Dose 200 MG; Start 10/28/18 at 21:00 Fluticasone/ Vilanterol (Breo Ellipta 100-25 Mcg Inh) 1 inh DAILY INH Last administered on 11/03/18 08:17; Admin Dose 1 INH; Start 10/29/18 at 09:00 Hydralazine HCl (Apresoline) 10 mg Q4H PRN IV sbp>160 Last administered on 10/29/18 17:07; Admin Dose 10 MG; Start 10/28/18 at 15:30 IV Flush (NS 3 ml) 3 ml PER PROTOCOL IV ; Start 10/28/18 at 15:30 Ondansetron HCl (Zofran Inj) 4 mg Q6H PRN IV NAUSEA/VOMITING Last administered on 10/29/18 20:45; Admin Dose 4 MG; Start 10/28/18 at 15:30 Acetaminophen (Tylenol Supp) 650 mg Q6H PRN [place] .PAIN 1-3 OR TEMP; Start 10/28/18 at 15:30 Morphine Sulfate (morphine) 2 mg Q4H PRN IV .SEVERE PAIN 7-10 Last administered on 10/29/18 18:51; Admin Dose 2 MG; Start 10/28/18 at 15:30 Enoxaparin Sodium (Lovenox) 40 mg DAILY SC Last administered on 11/03/18 08:22; Admin Dose 40 MG; Start 10/29/18 at 09:00 Ceftriaxone Sodium 50 ml @ 100 mls/hr Q24H IVPB Last administered on 11/02/18 16:25; Admin Dose 100 MLS/HR; Start 10/28/18 at 17:00 Ondansetron HCl (Zofran Tab) 4 mg Q6H PRN PO NAUSEA AND/OR VOMITING; Start 10/28/18 at 16:00 Oxycodone HCl (Roxicodone) 30 mg BID PRN PO MODERATE PAIN LEVEL 4-6 Last administered on 11/03/18 08:25; Admin Dose 30 MG; Start 10/28/18 at 19:00 Tamsulosin HCl (Flomax) 0.4 mg HS PO Last administered on 11/02/18 21:06; Admin Dose 0.4 MG; Start 10/28/18 at 21:00 Sumatriptan Succinate (Imitrex) 50 mg PRN PRN PO MIGRAINE Last administered on 10/30/18 17:39; Admin Dose 50 MG; Start 10/28/18 at 19:30 Zolpidem Tartrate (Ambien) 5 mg HS MAY REPEAT X 1 PRN PO INSOMNIA Last administered on 11/02/18 21:06; Admin Dose 5 MG; Start 10/28/18 at 17:30 Oxycodone HCl (Oxycontin) 60 mg Q8 PO Last administered on 11/02/18 22:24; Admin Dose 60 MG; Start 10/28/18 at 22:00 Clonidine (Catapres) 0.1 mg Q4H PRN PO sbp>160 Last administered on 10/30/18 08:00; Admin Dose 0.1 MG; Start 10/29/18 at 09:00 Polyethylene Glycol (Miralax) 17 gm DAILY PO Last administered on 10/31/18 08:51; Admin Dose 17 GM; Start 10/30/18 at 09:00 Amlodipine Besylate (Norvasc) 10 mg DAILY PO Last administered on 11/03/18 08:18; Admin Dose 10 MG; Start 10/30/18 at 09:00 Lisinopril (Zestril) 10 mg DAILY PO Last administered on 11/03/18 08:18; Admin Dose 10 MG; Start 10/30/18 at 09:00 Levalbuterol (Xopenex Neb) 1.25 mg Q4H RESP THERAPY PRN HHN sob; Start 10/30/18 at 12:00 Famotidine (Pepcid) 20 mg BID PO Last administered on 11/03/18at 08:18; Admin Dose 20 MG; Start 10/30/18 at 21:00 Metoprolol Tartrate (Lopressor) 25 mg BID PO Last administered on 11/03/18at 08:18; Admin Dose 25 MG; Start 11/01/18 at 21:00 Magnesium Hydroxide (Milk Of Mag) 30 ml BID PRN PO CONSTIPATION; Start 11/01/18 at 20:30 Metoclopramide HCl (Reglan) 10 mg Q6H PRN IV NAUSEA/VOMITING; Start 11/02/18 at 13:30 CHELSEA CRAIG Nov 03, 2018 11:20
--- NOTE | 2018-11-03 11:37 | CARRPT ---
DATE OF PROCEDURE: 11/03/2018 REASON FOR STRESS TESTING: Chest pain, assess for ischemia. BASELINE VITAL SIGNS AND ELECTROCARDIOGRAM: Pulse of 67, blood pressure 125/74. Electrocardiogram w ith normal sinus rhythm, rate of 67, normal axis, normal intervals, inferior T-wave inversion, border line inferior Q's. PROCEDURE: The patient underwent standard Lexiscan infusion protocol over 10 seconds followed by rad iolabeled tracer. The patient's test was stopped due to completion of protocol. Maximal achieved bl ood pressure during the test 120/74. Maximum heart rate during the test was 87. ELECTROCARDIOGRAM FINDINGS: The patient did not develop any new Lexiscan-induced ST or T-wave change s from abnormalities, occasional PVCs. SYMPTOMS: The patient had mild shortness of breath which resolved during recovery. No chest pain. IMPRESSION: 1. No Lexiscan-induced ST or T-wave changes from baseline abnormalities diagnostic for ischemia. 2. Complaints of shortness of breath during stress testing, no documented chest pain. 3. Occasional premature ventricular contractions during stress testing. 4. Report of nuclear images to follow in separate dictation. Dictated By: CHELSEA SCHUMACHER/LOUIE Conf#: [id number] DID#: [id number] CC: JENNIFER ACOSTA MD;*EndCC*
[2018-11-03 11:59] VITALS: BP 122/72; PULSE 74; RESP 19
--- NOTE | 2018-11-03 16:03 | CONS ---
Assessment/Plan Assessment/Plan Hospital Course (Demo Recall) ID PROGRESS NOTE CURRENT ABX: DAY #7 =>CEFTRIAXONE s/p AZITH 24H INTERVAL SUMMARY * CXR with concern at right base -- WBC elevated -- he did received Decadron on 10/28/18 * (+)EOSINOPHILIA w/persistent leukocytosis -- pulmonary etiology likely * sp Lexiscan MPI today 11/03/18: 1. Negative myocardial perfusion scan.2. There is no evidence for reversible ischemia. 3. Normal wall motion with normal ejection fraction of 42%. * WBC rising -> s/p DECADRON IV 10/28/18 * BNP elevated to 831 -- HTN READINGS INTERMITTENTLY w/LO -- suspect mild HTN heart disease DIAGNOSTIC IMAGING * 11/03/18 CXR: There is right lung base opacity, which may represent consolidation versus discrete lesion. Follow-up to resolution to exclude underlying neoplasm. There is left lung base atelectasis. * 10/30/18 CXR: Atelectasis versus minimal infiltrates in the perihilar lower lungs.Scattered atelectasis in both lungs. Diffuse mild interstitial prominence in both lungs. Interstitial prominence could be chronic or reflect mild interstitial edema. Hypoinflated lungs with an elevated right hemidiaphragm. MICRO * 10/28/18 BCX (-) * 10/28/18 (-)MRSA * 10/29/18 (-) INFLUENZA A/B PHYSICAL EXAMINATION: GENERAL: VSS, NAD HEENT: AT, NC, NECK: Supple, CHEST: Rise symmetrical HEART: Pulse RRR ABDOMEN: Deferred EXTREMITIES: Warm, dry SKIN: No rash, no diaphoresis ID ASSESSMENT 62 yo M admit with: 1. SIRS w/WBC rising -> s/p DECADRON IV 10/28/18 2. Community-acquired pneumonia/COPD exacerbation 3. Acute kidney injury with improving kidney function 4. History of lupus 5. Hypertension - QUERY HTN heart disease * BNP elevated to 831 -- HTN READINGS INTERMITTENTLY w/LO -- suspect mild HTN heart disease 6. Migraine headaches status post surgical intervention for Ciari malformation 7. Chronic intermittent nausea/vomiting -R/o GI etiology vs 2/2 migraines vs other = GI on the case 8. Chronic tobaccoism=> quit smoking 8 weeks ago 9. Hx of Anderson-Eduardo syndrome w/Levaquin = avoid Quinolones (-)MRSA ABX ALLERGIES: LEVAQUIN INVASIVES: PIV CURRENT ABX: DAY #7=>Ceftriaxone s/p Azith ID RECOMMENDATIONS/PLAN: 1. CONTINUE CEFTRIAXONE * CXR with concern at right base -- WBC elevated -- he did received Decadron on 10/28/18 * (+)EOSINOPHILIA w/persistent leukocytosis -- pulmonary etiology likely 2. CONSIDER CT CHEST TO EVALUATION CXR CONCERN ABNORMALITY RLL BASE . Consultation Date/Type/Reason Admit Date/Time Oct 28, 2018 at 13:40 Initial Consult Date 10/29/18 Requesting Provider: CHRISTOPHER MOORE NP Date/Time of Note DATE: 11/03/18 TIME: 15:57 Exam/Review of Systems Exam Vitals Vital Signs Date Temp Pulse Resp B/P (MAP) Pulse Ox O2 O2 Flow FiO2 Time Delivery Rate 11/03/18 98.8 74 19 122/72 92 Room Air 11:59 (89) 11/03/18 2.0 08:00 Intake and Output 11/02/18 11/02/18 11/03/18 1515:00 23:00 07:00 IntakeIntake Total 600 ml 500 ml 600 ml BalanceBalance 600 ml 500 ml 600 ml Results Result Diagram: 11/03/18 0611 11/03/18 0611 Results 24hrs Laboratory Tests Test 11/03/18 06:11 White Blood Count 17.7 H Red Blood Count 4.90 Hemoglobin 14.3 Hematocrit 42.9 Mean Corpuscular Volume 87.6 Mean Corpuscular Hemoglobin 29.2 Mean Corpuscular Hemoglobin Concent 33.3 Red Cell Distribution Width 12.5 Platelet Count 411 Mean Platelet Volume 9.6 Immature Granulocytes % 0.600 H Neutrophils % 51.5 Lymphocytes % 10.1 L Monocytes % 9.8 Eosinophils % 26.6 H Basophils % 1.4 Nucleated Red Blood Cells % 0.0 Immature Granulocytes # 0.110 H Neutrophils # 9.1 H Lymphocytes # 1.8 Monocytes # 1.7 H Eosinophils # 4.7 H Basophils # 0.2 H Nucleated Red Blood Cells # 0.0 Sodium Level 140 Potassium Level 4.5 Chloride Level 106 Carbon Dioxide Level 26 Anion Gap 8 Blood Urea Nitrogen 25 H Creatinine 1.10 Est Glomerular Filtrat Rate mL/min > 60 Glucose Level 106 Calcium Level 9.2 Medications Medication Current Medications Hydroxychloroquine Sulfate (Plaquenil) 200 mg BID PO Last administered on 11/03/18 08:18; Admin Dose 200 MG; Start 10/28/18 at 21:00 Fluticasone/ Vilanterol (Breo Ellipta 100-25 Mcg Inh) 1 inh DAILY INH Last administered on 11/03/18 08:17; Admin Dose 1 INH; Start 10/29/18 at 09:00 Hydralazine HCl (Apresoline) 10 mg Q4H PRN IV sbp>160 Last administered on 17:07; Admin Dose 10 MG; Start 10/28/18 at 15:30 IV Flush (NS 3 ml) 3 ml PER PROTOCOL IV ; Start 10/28/18 at 15:30 Ondansetron HCl (Zofran Inj) 4 mg Q6H PRN IV NAUSEA/VOMITING Last administered on 10/29/18 20:45; Admin Dose 4 MG; Start 10/28/18 at 15:30 Acetaminophen (Tylenol Supp) 650 mg Q6H PRN [place] .PAIN 1-3 OR TEMP; Start 10/28/18 at 15:30 Morphine Sulfate (morphine) 2 mg Q4H PRN IV .SEVERE PAIN 7-10 Last administered on 10/29/18 18:51; Admin Dose 2 MG; Start 10/28/18 at 15:30 Enoxaparin Sodium (Lovenox) 40 mg DAILY SC Last administered on 11/03/18 08:22; Admin Dose 40 MG; Start 10/29/18 at 09:00 Ceftriaxone Sodium 50 ml @ 100 mls/hr Q24H IVPB Last administered on 11/02/18 16:25; Admin Dose 100 MLS/HR; Start 10/28/18 at 17:00 Ondansetron HCl (Zofran Tab) 4 mg Q6H PRN PO NAUSEA AND/OR VOMITING; Start 10/28/18 at 16:00 Oxycodone HCl (Roxicodone) 30 mg BID PRN PO MODERATE PAIN LEVEL 4-6 Last administered on 11/03/18 08:25; Admin Dose 30 MG; Start 10/28/18 at 19:00 Tamsulosin HCl (Flomax) 0.4 mg HS PO Last administered on 11/02/18 21:06; Admin Dose 0.4 MG; Start 10/28/18 at 21:00 Sumatriptan Succinate (Imitrex) 50 mg PRN PRN PO MIGRAINE Last administered on 10/30/18 17:39; Admin Dose 50 MG; Start 10/28/18 at 19:30 Zolpidem Tartrate (Ambien) 5 mg HS MAY REPEAT X 1 PRN PO INSOMNIA Last administered on 11/02/18 21:06; Admin Dose 5 MG; Start 10/28/18 at 17:30 Oxycodone HCl (Oxycontin) 60 mg Q8 PO Last administered on 11/03/18 14:09; Admin Dose 60 MG; Start 10/28/18 at 22:00 Clonidine (Catapres) 0.1 mg Q4H PRN PO sbp>160 Last administered on 10/30/18 08:00; Admin Dose 0.1 MG; Start 10/29/18 at 09:00 Polyethylene Glycol (Miralax) 17 gm DAILY PO Last administered on 10/31/18 08:51; Admin Dose 17 GM; Start 10/30/18 at 09:00 Amlodipine Besylate (Norvasc) 10 mg DAILY PO Last administered on 11/03/18 08:18; Admin Dose 10 MG; Start 10/30/18 at 09:00 Lisinopril (Zestril) 10 mg DAILY PO Last administered on 11/03/18 08:18; Admin Dose 10 MG; Start 10/30/18 at 09:00 Levalbuterol (Xopenex Neb) 1.25 mg Q4H RESP THERAPY PRN HHN sob; Start 10/30/18 at 12:00 Famotidine (Pepcid) 20 mg BID PO Last administered on 11/03/18 08:18; Admin Dose 20 MG; Start 10/30/18 at 21:00 Metoprolol Tartrate (Lopressor) 25 mg BID PO Last administered on 11/03/18 08:18; Admin Dose 25 MG; Start 11/01/18 at 21:00 Magnesium Hydroxide (Milk Of Mag) 30 ml BID PRN PO CONSTIPATION; Start 11/01/18 at 20:30 Metoclopramide HCl (Reglan) 10 mg Q6H PRN IV NAUSEA/VOMITING; Start 11/02/18 at 13:30 ILAN MEANS NP Nov 03, 2018 16:03
[2018-11-03 16:18] VITALS: BP 119/73; PULSE 78; RESP 18
[2018-11-03] MEDS: CEFTRIAXONE 2 GM/50 ML (PMX) 50 ML IVPB SCH (17:33)
[2018-11-03 20:16] VITALS: BP 115/66; PULSE 87; RESP 18
[2018-11-03] MEDS: TAMSULOSIN (SR) 0.4 MG CAP PO SCH (21:10)
[2018-11-03] MEDS: ONDANSETRON 4 MG INJ IV PRN (21:16)
[2018-11-04] VITALS: BP 105/70; PULSE 68; RESP 18
[2018-11-04 04:33] VITALS: BP 116/62; PULSE 68; RESP 18
[2018-11-04] MEDS: oxyCODONE (CR) 20 MG TAB [oxyCONTIN] PO SCH ×3 (06:22→22:09)
[2018-11-04 07:32] VITALS: BP 130/72; PULSE 83; RESP 18
[2018-11-04] MEDS: LISINOPRIL 10 MG TAB PO SCH (08:48)
[2018-11-04] MEDS: FLUTICASONE/VILANTEROL 100-25 INH SCH (08:48)
[2018-11-04] MEDS: HYDROXYCHLOROQUINE 200 MG TAB PO SCH ×2 (08:48→20:09)
[2018-11-04] MEDS: FAMOTIDINE 20 MG TAB PO SCH ×2 (08:48→20:09)
[2018-11-04] MEDS: AMLODIPINE 10 MG TAB PO SCH (08:48)
[2018-11-04] MEDS: METOPROLOL 25 MG TAB PO SCH ×2 (08:48→20:10)
[2018-11-04] MEDS: POLYETHYLENE GLYCOL 17 GM PACKET PO SCH (08:49)
[2018-11-04] MEDS: ENOXAPARIN 40 MG/0.4 ML SYG SC SCH (08:52)
--- NOTE | 2018-11-04 09:02 | PN ---
DATE: 11/04/2018 SUBJECTIVE: The patient is stable, no events overnight. OBJECTIVE: VITAL SIGNS: Blood pressure 130/72, pulse 83, respirations 18, temperature 98.1. HEENT: Head is normocephalic. NECK: Supple. HEART: Regular rate. LUNGS: Show diminished breath sounds at the base. ABDOMEN: Soft, nontender to palpation without rebound or guarding. EXTREMITIES: Negative for clubbing, cyanosis, no edema. DERMATOLOGIC: No rashes. MUSCULOSKELETAL: No joint effusion. NEUROLOGIC: No change in exam. MEDICATIONS: Have been reviewed. LABORATORY DATA: Has been reviewed. IMAGING STUDIES: Have been reviewed. ASSESSMENT AND PLAN: 1. Nonoliguric acute kidney injury, etiology secondary to hemodynamics. Renal function is improved. Continue to monitor. 2. Hypertension. Continue current blood pressure regimen. 3. Mineral bone disorder. Monitor calcium and phosphorus levels. 4. Pneumonia. Continue antibiotic regimen. 5. Shortness of breath. Etiology is likely secondary to pneumonia, chronic obstructive pulmonary di sease exacerbation. Continue to monitor. The patient is status post Lexiscan, no finding of ischemi a. 6. History of lupus. Continue medical management. 7. History of migraines. Continue current treatment plan. 8. Arrhythmia, currently in sinus rhythm. Continue to monitor. Follow up with cardiology. Dictated By: ZAID FISH/LOUIE Conf#: [id number] DID#: [id number] CC: JENNIFER ACOSTA MD;*End*
--- NOTE | 2018-11-04 11:15 | PN ---
Date/Time of Note Date/Time of Note DATE: 11/04/18 TIME: 11:13 Assessment/Plan VTE Prophylaxis Risk score (from Nsg)>0 risk: 2 SCD applied (from Nsg): Yes Pharmacological prophylaxis: LMWH Lines/Catheters IV Catheter Type (from [facility]): Saline Lock Assessment/Plan Hospital Course SUBJECTIVE: Denies any chest pain. OBJECTIVE: Physical Exam General: Adequately build 62 year-old male lying in bed in no apparent distress. HEENT: Normocephalic, atraumatic. Eyes: Anicteric sclerae, conjunctivae clear. ENT: Nasal septum midline, oral mucosa is dry. Neck supple. Respiratory: Bilaterally diminished breath sounds. No use of accessory muscles of respiration. B/L coarse breath sounds. Cardiovascular: S1, S2 heard. Regular rate and rhythm. Abdomen: Soft, nontender, and nondistended. Genitourinary: Deferred. Extremities: No cyanosis, no clubbing, no edema. Peripheral pulses palpable. Neurologic: The patient is awake, alert, and oriented. Skin: Normal skin turgor. No skin rashes. Labs & Vitals per chart ASSESSMENT & PLAN 62-year-old male with a past medical history of lupus, Chiari malformation status post brain [id number] years ago, chronic pain, HTN, prostate hypertrophy, COPD, and migraine headaches who presented to the emergency room with a chief complaint of dyspnea with chest x-ray showing mild bibasilar opacities with underlying leukocytosis, was admitted to inpatient setting for further treatment and evaluation. 1. Community-acquired pneumonia. Continue Rocephin. The patient had an allergic reaction to fluoroquinolones. 2. Complete opacification of the right lower lobe with volume loss. Etiology unclear. Chest US to evaluate for any pleural effusion. Pulmonology consult. 3. COPD. Continue inhaled bronchodilators (SAB and LABA). 4. Hypertension. Continue antihypertensives. 5. Supraventricular tachycardia. Continue beta-blockers. Patient being followed by cardiology. 6. Acute nonoliguric kidney injury. Resolved. Being followed by nephrology. 7. Migraine headaches. Continue ergot alkaloids. 8. Lupus. Continue hydroxychloroquine. 9. History of Chiari malformation, status post surgical intervention. 10. Fluids, electrolytes, and nutrition. Regular diet. 11. DVT prophylaxis. Subcutaneous Lovenox. 12. Plan. Continue antimicrobials as per ID. Continue beta-blockers. Obtain pulmonology evaluation. Disposition. Patient has worsening leukocytosis. Chest CT showing volume loss in the right lower lobe. This needs to be further evaluated before the patient can be discharged home safely. The patient was seen in collaboration with Dr. Coleman. Result Diagram: 11/04/18 0608 11/04/18 0607 Results 24hrs Laboratory Tests Test 11/04/18 06:07 11/04/18 06:08 Sodium Level 141 Potassium Level 4.4 Chloride Level 105 Carbon Dioxide Level 28 Anion Gap 8 Blood Urea Nitrogen 30 H Creatinine 1.19 Est Glomerular Filtrat Rate mL/min > 60 Glucose Level 111 Calcium Level 9.2 White Blood Count 18.3 H Red Blood Count 4.64 L Hemoglobin 13.4 L Hematocrit 40.8 L Mean Corpuscular Volume 87.9 Mean Corpuscular Hemoglobin 28.9 L Mean Corpuscular Hemoglobin Concent 32.8 Red Cell Distribution Width 12.6 Platelet Count 409 Mean Platelet Volume 9.9 Immature Granulocytes % 0.800 H Neutrophils % 50.4 Lymphocytes % 10.8 L Monocytes % 9.9 Eosinophils % 27.0 H Basophils % 1.1 Nucleated Red Blood Cells % 0.0 Immature Granulocytes # 0.150 H Neutrophils # 9.2 H Lymphocytes # 2.0 Monocytes # 1.8 H Eosinophils # 4.9 H Basophils # 0.2 H Nucleated Red Blood Cells # 0.0 Phosphorus Level 4.5 Magnesium Level 2.2 Exam/Review of Systems Exam Vitals Vital Signs Date Temp Pulse Resp B/P (MAP) Pulse Ox O2 O2 Flow FiO2 Time Delivery Rate 11/04/18 Nasal 2.0 07:35 Cannula 11/04/18 98.1 83 18 130/72 91 07:32 (91) 11/04/18 32 02:55 Intake and Output 11/03/18 11/03/18 11/04/18 1515:00 23:00 07:00 IntakeIntake Total 600 ml BalanceBalance 600 ml Results Results 24hrs Laboratory Tests Test 11/04/18 06:07 11/04/18 06:08 Sodium Level 141 Potassium Level 4.4 Chloride Level 105 Carbon Dioxide Level 28 Anion Gap 8 Blood Urea Nitrogen 30 H Creatinine 1.19 Est Glomerular Filtrat Rate mL/min > 60 Glucose Level 111 Calcium Level 9.2 White Blood Count 18.3 H Red Blood Count 4.64 L Hemoglobin 13.4 L Hematocrit 40.8 L Mean Corpuscular Volume 87.9 Mean Corpuscular Hemoglobin 28.9 L Mean Corpuscular Hemoglobin Concent 32.8 Red Cell Distribution Width 12.6 Platelet Count 409 Mean Platelet Volume 9.9 Immature Granulocytes % 0.800 H Neutrophils % 50.4 Lymphocytes % 10.8 L Monocytes % 9.9 Eosinophils % 27.0 H Basophils % 1.1 Nucleated Red Blood Cells % 0.0 Immature Granulocytes # 0.150 H Neutrophils # 9.2 H Lymphocytes # 2.0 Monocytes # 1.8 H Eosinophils # 4.9 H Basophils # 0.2 H Nucleated Red Blood Cells # 0.0 Phosphorus Level 4.5 Magnesium Level 2.2 Medications Medication Current Medications Hydroxychloroquine Sulfate (Plaquenil) 200 mg BID PO Last administered on 11/04/18 08:48; Admin Dose 200 MG; Start 10/28/18 at 21:00 Fluticasone/ Vilanterol (Breo Ellipta 100-25 Mcg Inh) 1 inh DAILY INH Last administered on 11/04/18 08:48; Admin Dose 1 INH; Start 10/29/18 at 09:00 Hydralazine HCl (Apresoline) 10 mg Q4H PRN IV sbp>160 Last administered on 10/29/18 17:07; Admin Dose 10 MG; Start 10/28/18 at 15:30 IV Flush (NS 3 ml) 3 ml PER PROTOCOL IV ; Start 10/28/18 at 15:30 Ondansetron HCl (Zofran Inj) 4 mg Q6H PRN IV NAUSEA/VOMITING Last administered on 11/03/18 21:16; Admin Dose 4 MG; Start 10/28/18 at 15:30 Acetaminophen (Tylenol Supp) 650 mg Q6H PRN NE .PAIN 1-3 OR TEMP; Start 10/28/18 at 15:30 Morphine Sulfate (morphine) 2 mg Q4H PRN IV .SEVERE PAIN 7-10 Last administered on 10/29/18 18:51; Admin Dose 2 MG; Start 10/28/18 at 15:30 Enoxaparin Sodium (Lovenox) 40 mg DAILY SC Last administered on 11/04/18 08:52; Admin Dose 40 MG; Start 10/29/18 at 09:00 Ceftriaxone Sodium 50 ml @ 100 mls/hr Q24H IVPB Last administered on 11/03/18 17:33; Admin Dose 100 MLS/HR; Start 10/28/18 at 17:00 Ondansetron HCl (Zofran Tab) 4 mg Q6H PRN PO NAUSEA AND/OR VOMITING; Start 10/28/18 at 16:00 Oxycodone HCl (Roxicodone) 30 mg BID PRN PO MODERATE PAIN LEVEL 4-6 Last administered on 11/03/18 08:25; Admin Dose 30 MG; Start 10/28/18 at 19:00 Tamsulosin HCl (Flomax) 0.4 mg HS PO Last administered on 11/03/18 21:10; Admin Dose 0.4 MG; Start 10/28/18 at 21:00 Sumatriptan Succinate (Imitrex) 50 mg PRN PRN PO MIGRAINE Last administered on 10/30/18 17:39; Admin Dose 50 MG; Start 10/28/18 at 19:30 Zolpidem Tartrate (Ambien) 5 mg HS MAY REPEAT X 1 PRN PO INSOMNIA Last administered on 11/02/18 21:06; Admin Dose 5 MG; Start 10/28/18 at 17:30 Oxycodone HCl (Oxycontin) 60 mg Q8 PO Last administered on 11/04/18 06:22; Admin Dose 60 MG; Start 10/28/18 at 22:00 Clonidine (Catapres) 0.1 mg Q4H PRN PO sbp>160 Last administered on 10/30/18 08:00; Admin Dose 0.1 MG; Start 10/29/18 at 09:00 Polyethylene Glycol (Miralax) 17 gm DAILY PO Last administered on 10/31/18 08:51; Admin Dose 17 GM; Start 10/30/18 at 09:00 Amlodipine Besylate (Norvasc) 10 mg DAILY PO Last administered on 11/04/18 08:48; Admin Dose 10 MG; Start 10/30/18 at 09:00 Lisinopril (Zestril) 10 mg DAILY PO Last administered on 11/04/18 08:48; Admin Dose 10 MG; Start 10/30/18 at 09:00 Levalbuterol (Xopenex Neb) 1.25 mg Q4H RESP THERAPY PRN HHN sob Last administered on 11/03/18 22:51; Admin Dose 1.25 MG; Start 10/30/18 at 12:00 Famotidine (Pepcid) 20 mg BID PO Last administered on 11/04/18 08:48; Admin Dose 20 MG; Start 10/30/18 at 21:00 Metoprolol Tartrate (Lopressor) 25 mg BID PO Last administered on 11/04/18 08:48; Admin Dose 25 MG; Start 11/01/18 at 21:00 Magnesium Hydroxide (Milk Of Mag) 30 ml BID PRN PO CONSTIPATION; Start 11/01/18 at 20:30 Metoclopramide HCl (Reglan) 10 mg Q6H PRN IV NAUSEA/VOMITING; Start 11/02/18 at 13:30 MONTY TALLEY NP Nov 04, 2018 11:15
[2018-11-04 11:21] VITALS: BP 117/61; PULSE 63; RESP 18
--- NOTE | 2018-11-04 12:27 | CONS ---
Assessment/Plan Assessment/Plan Assessment/Plan (Daily) Assessment and recommendations; 1. Patient admitted with right upper lobe pneumonia with likely right lower lobe atelectasis due to endobronchial lesion. 2. History of extensive smoking. 3. Other comorbidities include history of BPH, lupus, hypertension and migraine disorder. Continue current supportive care. Patient will need to have a bronchoscopy performed. Patient is agreeable for the procedure. Procedure was explained to him in detail. We will schedule as soon as possible. Consultation Date/Type/Reason Admit Date/Time Oct 28, 2018 at 13:40 Date of Consultation: Nov 04, 2018 Type of Consult Pulmonary Patient is a pleasant 62-year-old gentleman who was admitted on the second of this month with a few days history of shortness of breath and coughing. Upon evaluation a chest x-ray was done which showed right lower lobe pneumonia. Patient has been on appropriate antimicrobial regimen. Despite adequate treatment, CT imaging of the chest showing persistent right lower lobe consolidation with possibly right lower lobe atelectasis due to endobronchial lesion. Patient denies any weight loss, chest pain, complains of scant cough without any hemoptysis or sputum production. According to him he does not have any chronic respiratory symptoms. Past medical history; 1. Possibly underlying COPD. Asymptomatic though. 2. History of migraine. 3. Lupus. 4. BPH. 5. History of Budd-Chiari malformation. Status post treatment. Medications; reviewed. Allergies; Levaquin. Social history; patient has a extensive smoking history. Just recently quit smoking few weeks ago. No history of alcohol drug abuse. Family history; noncontributory. Patient is . 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 Review of systems; denies any headache, visual changes, dysphagia. Any chest pain, angina, wheezing. Complains of scant cough without any sputum production or hemoptysis. Denies any weight loss. Denies any abdominal pain, nausea vomiting. Any melena or hematochezia. Any urinary symptoms. Any edema orthopnea. Denies any chronic respiratory symptoms. General exam; middle-aged male, awake alert, currently in no distress. Date/Time of Note DATE: 11/04/18 TIME: 12:23 Past Medical History Home Meds Reported Medications Ondansetron Hcl* (Zofran*) 4 Mg Tab, 4 MG PO Q6H PRN for NAUSEA AND OR VOMITING, TAB 10/28/18 Temazepam* (Temazepam*) 30 Mg Capsule, 30 MG PO HS PRN for INSOMNIA, CAP 10/28/18 Oxycodone Hcl* (Oxycontin*) 60 Mg Tab.sr.12h, 60 MG PO Q8H, TAB 10/28/18 Oxycodone Hcl* (Oxycontin*) 30 Mg Tab.sr.12h, 30 MG PO NEEDED, TAB 10/28/18 Rizatriptan Benzoate (Rizatriptan Benzoate) 10 Mg Tab.rapdis, 10 MG PO NEEDED PRN for MIGRAINE, TAB may repeat after 2 hours, MAX 30 mg/24 hour 10/28/18 Hydroxychloroquine Sulfate* (Hydroxychloroquine Sulfate*) 200 Mg Tablet, 200 MG PO BID, TAB 10/28/18 Clonidine Hcl* (Clonidine Hcl*) 0.2 Mg Tablet, 0.2 MG PO BID PRN for NEEDED, TAB 10/28/18 Tamsulosin Hcl* (Flomax*) 0.4 Mg Cap.er.24h, 0.4 MG PO HS, CAP 10/28/18 Sulfamethoxazole/Trimethoprim* (Bactrim Ds* Tablet) 1 Each Tablet, 1 TAB PO BID, TAB FOR 21 DAYS, START DATE 10/17/18 10/28/18 Medications Current Medications Hydroxychloroquine Sulfate (Plaquenil) 200 mg BID PO Last administered on 11/04/18at 08:48; Admin Dose 200 MG; Start 10/28/18 at 21:00 Fluticasone/ Vilanterol (Breo Ellipta 100-25 Mcg Inh) 1 inh DAILY INH Last administered on 11/04/18at 08:48; Admin Dose 1 INH; Start 10/29/18 at 09:00 Hydralazine HCl (Apresoline) 10 mg Q4H PRN IV sbp>160 Last administered on 10/29/18at 17:07; Admin Dose 10 MG; Start 10/28/18 at 15:30 IV Flush (NS 3 ml) 3 ml PER PROTOCOL IV ; Start 10/28/18 at 15:30 Ondansetron HCl (Zofran Inj) 4 mg Q6H PRN IV NAUSEA/VOMITING Last administered on 11/03/18at 21:16; Admin Dose 4 MG; Start 10/28/18 at 15:30 Acetaminophen (Tylenol Supp) 650 mg Q6H PRN SC .PAIN 1-3 OR TEMP; Start 10/28/18 at 15:30 Morphine Sulfate (morphine) 2 mg Q4H PRN IV .SEVERE PAIN 7-10 Last administered on 10/29/18 18:51; Admin Dose 2 MG; Start 10/28/18 at 15:30 Enoxaparin Sodium (Lovenox) 40 mg DAILY SC Last administered on 11/04/18 08:52; Admin Dose 40 MG; Start 10/29/18 at 09:00 Ceftriaxone Sodium 50 ml @ 100 mls/hr Q24H IVPB Last administered on 11/03/18 17:33; Admin Dose 100 MLS/HR; Start 10/28/18 at 17:00 Ondansetron HCl (Zofran Tab) 4 mg Q6H PRN PO NAUSEA AND/OR VOMITING; Start 10/28/18 at 16:00 Oxycodone HCl (Roxicodone) 30 mg BID PRN PO MODERATE PAIN LEVEL 4-6 Last administered on 11/03/18 08:25; Admin Dose 30 MG; Start 10/28/18 at 19:00 Tamsulosin HCl (Flomax) 0.4 mg HS PO Last administered on 11/03/18 21:10; Admin Dose 0.4 MG; Start 10/28/18 at 21:00 Sumatriptan Succinate (Imitrex) 50 mg PRN PRN PO MIGRAINE Last administered on 10/30/18 17:39; Admin Dose 50 MG; Start 10/28/18 at 19:30 Zolpidem Tartrate (Ambien) 5 mg HS MAY REPEAT X 1 PRN PO INSOMNIA Last administered on 11/02/18 21:06; Admin Dose 5 MG; Start 10/28/18 at 17:30 Oxycodone HCl (Oxycontin) 60 mg Q8 PO Last administered on 11/04/18 06:22; Admin Dose 60 MG; Start 10/28/18 at 22:00 Clonidine (Catapres) 0.1 mg Q4H PRN PO sbp>160 Last administered on 10/30/18 08:00; Admin Dose 0.1 MG; Start 10/29/18 at 09:00 Polyethylene Glycol (Miralax) 17 gm DAILY PO Last administered on 10/31/18 08:51; Admin Dose 17 GM; Start 10/30/18 at 09:00 Amlodipine Besylate (Norvasc) 10 mg DAILY PO Last administered on 11/04/18 0 8:48; Admin Dose 10 MG; Start 10/30/18 at 09:00 Lisinopril (Zestril) 10 mg DAILY PO Last administered on 11/04/18 08:48; Admin Dose 10 MG; Start 10/30/18 at 09:00 Levalbuterol (Xopenex Neb) 1.25 mg Q4H RESP THERAPY PRN HHN sob Last administered on 11/03/18 22:51; Admin Dose 1.25 MG; Start 10/30/18 at 12:00 Famotidine (Pepcid) 20 mg BID PO Last administered on 11/04/18 08:48; Admin Dose 20 MG; Start 10/30/18 at 21:00 Metoprolol Tartrate (Lopressor) 25 mg BID PO Last administered on 11/04/18 08:48; Admin Dose 25 MG; Start 11/01/18 at 21:00 Magnesium Hydroxide (Milk Of Mag) 30 ml BID PRN PO CONSTIPATION; Start 11/01/18 at 20:30 Metoclopramide HCl (Reglan) 10 mg Q6H PRN IV NAUSEA/VOMITING; Start 11/02/18 at 13:30 Allergies: Coded Allergies: levofloxacin (Verified Allergy, Severe, NENA CECILE'S SYNDROME, 10/28/18) Social History Alcohol Use: none Smoking Status: Former smoker Drug Use: none Exam/Review of Systems Exam Vitals Vital Signs Date Temp Pulse Resp B/P (MAP) Pulse Ox O2 O2 Flow FiO2 Time Delivery Rate 11/04/18 98.3 63 18 117/61 92 11:21 (79) 11/04/18 Nasal 2.0 07:35 Cannula 11/04/18 32 02:55 Intake and Output 11/03/18 11/03/18 11/04/18 1515:00 23:00 07:00 IntakeIntake Total 600 ml BalanceBalance 600 ml Exam H EENT exam; supple neck, no JVD. No lymphadenopathy. Midline trachea. No thyromegaly. Patient has fair dentition. No neck masses. Pupils are midsize and reactive to light. Chest exam; diminished breath sounds right lower lobe. Rest of the lung sapp are fairly clear. S1-S2 audible, no murmurs. Regular rhythm. Abdomen exam; soft, nontender. No organomegaly. Bowel sounds are audible. Extremity exam; no peripheral edema clubbing. 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 Results Result Diagram: 11/04/18 0608 11/04/18 0607 Results 24hrs Laboratory Tests Test 11/04/18 06:07 11/04/18 06:08 Sodium Level 141 Potassium Level 4.4 Chloride Level 105 Carbon Dioxide Level 28 Anion Gap 8 Blood Urea Nitrogen 30 H Creatinine 1.19 Est Glomerular Filtrat Rate mL/min > 60 Glucose Level 111 Calcium Level 9.2 White Blood Count 18.3 H Red Blood Count 4.64 L Hemoglobin 13.4 L Hematocrit 40.8 L Mean Corpuscular Volume 87.9 Mean Corpuscular Hemoglobin 28.9 L Mean Corpuscular Hemoglobin Concent 32.8 Red Cell Distribution Width 12.6 Platelet Count 409 Mean Platelet Volume 9.9 Immature Granulocytes % 0.800 H Neutrophils % 50.4 Lymphocytes % 10.8 L Monocytes % 9.9 Eosinophils % 27.0 H Basophils % 1.1 Nucleated Red Blood Cells % 0.0 Immature Granulocytes # 0.150 H Neutrophils # 9.2 H Lymphocytes # 2.0 Monocytes # 1.8 H Eosinophils # 4.9 H Basophils # 0.2 H Nucleated Red Blood Cells # 0.0 Phosphorus Level 4.5 Magnesium Level 2.2 Medications Medication Current Medications Hydroxychloroquine Sulfate (Plaquenil) 200 mg BID PO Last administered on at 08:48; Admin Dose 200 MG; Start 10/28/18 at 21:00 Fluticasone/ Vilanterol (Breo Ellipta 100-25 Mcg Inh) 1 inh DAILY INH Last administered on 11/04/18at 08:48; Admin Dose 1 INH; Start 10/29/18 at 09:00 Hydralazine HCl (Apresoline) 10 mg Q4H PRN IV sbp>160 Last administered on 10/29/18at 17:07; Admin Dose 10 MG; Start 10/28/18 at 15:30 IV Flush (NS 3 ml) 3 ml PER PROTOCOL IV ; Start 10/28/18 at 15:30 Ondansetron HCl (Zofran Inj) 4 mg Q6H PRN IV NAUSEA/VOMITING Last administered on 11/03/18 21:16; Admin Dose 4 MG; Start 10/28/18 at 15:30 Acetaminophen (Tylenol Supp) 650 mg Q6H PRN SC .PAIN 1-3 OR TEMP; Start 10/28/18 at 15:30 Morphine Sulfate (morphine) 2 mg Q4H PRN IV .SEVERE PAIN 7-10 Last administered on 10/29/18 18:51; Admin Dose 2 MG; Start 10/28/18 at 15:30 Enoxaparin Sodium (Lovenox) 40 mg DAILY SC Last administered on 11/04/18 08:52; Admin Dose 40 MG; Start 10/29/18 at 09:00 Ceftriaxone Sodium 50 ml @ 100 mls/hr Q24H IVPB Last administered on 11/03/18 17:33; Admin Dose 100 MLS/HR; Start 10/28/18 at 17:00 Ondansetron HCl (Zofran Tab) 4 mg Q6H PRN PO NAUSEA AND/OR VOMITING; Start 10/28/18 at 16:00 Oxycodone HCl (Roxicodone) 30 mg BID PRN PO MODERATE PAIN LEVEL 4-6 Last admin istered on 11/03/18 08:25; Admin Dose 30 MG; Start 10/28/18 at 19:00 Tamsulosin HCl (Flomax) 0.4 mg HS PO Last administered on 11/03/18 21:10; Admin Dose 0.4 MG; Start 10/28/18 at 21:00 Sumatriptan Succinate (Imitrex) 50 mg PRN PRN PO MIGRAINE Last administered on 10/30/18 17:39; Admin Dose 50 MG; Start 10/28/18 at 19:30 Zolpidem Tartrate (Ambien) 5 mg HS MAY REPEAT X 1 PRN PO INSOMNIA Last admini stered on 11/02/18 21:06; Admin Dose 5 MG; Start 10/28/18 at 17:30 Oxycodone HCl (Oxycontin) 60 mg Q8 PO Last administered on 11/04/18 06:22; Admin Dose 60 MG; Start 10/28/18 at 22:00 Clonidine (Catapres) 0.1 mg Q4H PRN PO sbp>160 Last administered on 10/30/18 08:00; Admin Dose 0.1 MG; Start 10/29/18 at 09:00 Polyethylene Glycol (Miralax) 17 gm DAILY PO Last administered on 10/31/18 08:51; Admin Dose 17 GM; Start 10/30/18 at 09:00 Amlodipine Besylate (Norvasc) 10 mg DAILY PO Last administered on 11/04/18 08:48; Admin Dose 10 MG; Start 10/30/18 at 09:00 Lisinopril (Zestril) 10 mg DAILY PO Last administered on 11/04/18 08:48; Admin Dose 10 MG; Start 10/30/18 at 09:00 Levalbuterol (Xopenex Neb) 1.25 mg Q4H RESP THERAPY PRN HHN sob Last administered on 11/03/18 22:51; Admin Dose 1.25 MG; Start 10/30/18 at 12:00 Famotidine (Pepcid) 20 mg BID PO Last administered on 11/04/18 08:48; Admin Dose 20 MG; Start 10/30/18 at 21:00 Metoprolol Tartrate (Lopressor) 25 mg BID PO Last administered on 11/04/18 08:48; Admin Dose 25 MG; Start 11/01/18 at 21:00 Magnesium Hydroxide (Milk Of Mag) 30 ml BID PRN PO CONSTIPATION; Start 11/01/18 at 20:30 Metoclopramide HCl (Reglan) 10 mg Q6H PRN IV NAUSEA/VOMITING; Start 11/02/18 at 13:30 AMBROCIO PADRON Nov 04, 2018 12:27
[2018-11-04] MEDS ORDERED: ACETYLCYSTEINE 20% 4 ML VIAL NEB ONE (12:30)
--- NOTE | 2018-11-04 12:48 | CONS ---
Consult Date/Type/Reason Admit Date/Time Oct 28, 2018 at 13:40 Initial Consult Date 10/29/18 Requesting Provider: CHRISTOPHER MOORE NP Date/Time of Note DATE: 11/04/18 TIME: 12:45 Subjective NO acute events - pt comfortable - plan for bronch today - SPECT EF 4@% - no rev ischema/ no scar - pt had a NSVT 189 beats today ? might be related to pulm meds - await for bronch results now. ROS: No fever, no chills, no nausea, no vomiting, no diarrhea/constipation No recent weight changes No chest pain, no PND, no orthopnea - chronic SOB, stable No dizziness, blurred vision No thirst, no heat or cold intolerance Objective Vitals Vital Signs Date Temp Pulse Resp B/P (MAP) Pulse Ox O2 O2 Flow FiO2 Time Delivery Rate 11/04/18 98.3 63 18 117/61 92 11:21 (79) 11/04/18 Nasal 2.0 07:35 Cannula 11/04/18 32 02:55 Intake and Output 11/03/18 11/03/18 11/04/18 1515:00 23:00 07:00 IntakeIntake Total 600 ml BalanceBalance 600 ml Exam General: WN/WD/NAD, AOx 3 HEENT: Unicetric/atraumatic/EOMI (follow commands) NECK: JVD elevated, no thyromegaly Lymph: no lymphadenopathy HEART: regular with no S3, II/ systolic murmur at apex LUNGS: Coarse sounds with some wheezing ABD: soft, NT, ND, +BS : Intact Neuro: non focal SKIN: chronic changes EXT: trace edema Results/Medications Result Diagram: 11/04/18 0608 11/04/18 0607 Results 24 hrs Laboratory Tests Test 11/04/18 06:07 11/04/18 06:08 Sodium Level 141 Potassium Level 4.4 Chloride Level 105 Carbon Dioxide Level 28 Anion Gap 8 Blood Urea Nitrogen 30 H Creatinine 1.19 Est Glomerular Filtrat Rate mL/min > 60 Glucose Level 111 Calcium Level 9.2 White Blood Count 18.3 H Red Blood Count 4.64 L Hemoglobin 13.4 L Hematocrit 40.8 L Mean Corpuscular Volume 87.9 Mean Corpuscular Hemoglobin 28.9 L Mean Corpuscular Hemoglobin Concent 32.8 Red Cell Distribution Width 12.6 Platelet Count 409 Mean Platelet Volume 9.9 Immature Granulocytes % 0.800 H Neutrophils % 50.4 Lymphocytes % 10.8 L Monocytes % 9.9 Eosinophils % 27.0 H Basophils % 1.1 Nucleated Red Blood Cells % 0.0 Immature Granulocytes # 0.150 H Neutrophils # 9.2 H Lymphocytes # 2.0 Monocytes # 1.8 H Eosinophils # 4.9 H Basophils # 0.2 H Nucleated Red Blood Cells # 0.0 Phosphorus Level 4.5 Magnesium Level 2.2 Home Meds Reported Medications Ondansetron Hcl* (Zofran*) 4 Mg Tab, 4 MG PO Q6H PRN for NAUSEA AND OR VOMITING, TAB 10/28/18 Temazepam* (Temazepam*) 30 Mg Capsule, 30 MG PO HS PRN for INSOMNIA, CAP 10/28/18 Oxycodone Hcl* (Oxycontin*) 60 Mg Tab.sr.12h, 60 MG PO Q8H, TAB 10/28/18 Oxycodone Hcl* (Oxycontin*) 30 Mg Tab.sr.12h, 30 MG PO NEEDED, TAB 10/28/18 Rizatriptan Benzoate (Rizatriptan Benzoate) 10 Mg Tab.rapdis, 10 MG PO NEEDED PRN for MIGRAINE, TAB may repeat after 2 hours, MAX 30 mg/24 hour 10/28/18 Hydroxychloroquine Sulfate* (Hydroxychloroquine Sulfate*) 200 Mg Tablet, 200 MG PO BID, TAB 10/28/18 Clonidine Hcl* (Clonidine Hcl*) 0.2 Mg Tablet, 0.2 MG PO BID PRN for NEEDED, TAB 10/28/18 Tamsulosin Hcl* (Flomax*) 0.4 Mg Cap.er.24h, 0.4 MG PO HS, CAP 10/28/18 Sulfamethoxazole/Trimethoprim* (Bactrim Ds* Tablet) 1 Each Tablet, 1 TAB PO BID, TAB FOR 21 DAYS, START DATE 10/17/18 10/28/18 Medications Current Medications Hydroxychloroquine Sulfate (Plaquenil) 200 mg BID PO Last administered on 11/04/18at 08:48; Admin Dose 200 MG; Start 10/28/18 at 21:00 Fluticasone/ Vilanterol (Breo Ellipta 100-25 Mcg Inh) 1 inh DAILY INH Last administered on 11/04/18 08:48; Admin Dose 1 INH; Start 10/29/18 at 09:00 Hydralazine HCl (Apresoline) 10 mg Q4H PRN IV sbp>160 Last administered on 10/29/18 17:07; Admin Dose 10 MG; Start 10/28/18 at 15:30 IV Flush (NS 3 ml) 3 ml PER PROTOCOL IV ; Start 10/28/18 at 15:30 Ondansetron HCl (Zofran Inj) 4 mg Q6H PRN IV NAUSEA/VOMITING Last administered on 11/03/18 21:16; Admin Dose 4 MG; Start 10/28/18 at 15:30 Acetaminophen (Tylenol Supp) 650 mg Q6H PRN [place] .PAIN 1-3 OR TEMP; Start 10/28/18 at 15:30 Morphine Sulfate (morphine) 2 mg Q4H PRN IV .SEVERE PAIN 7-10 Last administered on 10/29/18 18:51; Admin Dose 2 MG; Start 10/28/18 at 15:30 Enoxaparin Sodium (Lovenox) 40 mg DAILY SC Last administered on 11/04/18 08:52; Admin Dose 40 MG; Start 10/29/18 at 09:00 Ceftriaxone Sodium 50 ml @ 100 mls/hr Q24H IVPB Last administered on 11/03/18 17:33; Admin Dose 100 MLS/HR; Start 10/28/18 at 17:00 Ondansetron HCl (Zofran Tab) 4 mg Q6H PRN PO NAUSEA AND/OR VOMITING; Start 10/28/18 at 16:00 Oxycodone HCl (Roxicodone) 30 mg BID PRN PO MODERATE PAIN LEVEL 4-6 Last administered on 11/03/18 08:25; Admin Dose 30 MG; Start 10/28/18 at 19:00 Tamsulosin HCl (Flomax) 0.4 mg HS PO Last administered on 11/03/18 21:10; Admin Dose 0.4 MG; Start 10/28/18 at 21:00 Sumatriptan Succinate (Imitrex) 50 mg PRN PRN PO MIGRAINE Last administered on 10/30/18 17:39; Admin Dose 50 MG; Start 10/28/18 at 19:30 Zolpidem Tartrate (Ambien) 5 mg HS MAY REPEAT X 1 PRN PO INSOMNIA Last administered on 11/02/18 21:06; Admin Dose 5 MG; Start 10/28/18 at 17:30 Oxycodone HCl (Oxycontin) 60 mg Q8 PO Last administered on 11/04/18 06:22; Admi n Dose 60 MG; Start 10/28/18 at 22:00 Clonidine (Catapres) 0.1 mg Q4H PRN PO sbp>160 Last administered on 10/30/18 08:00; Admin Dose 0.1 MG; Start 10/29/18 at 09:00 Polyethylene Glycol (Miralax) 17 gm DAILY PO Last administered on 10/31/18 08:51; Admin Dose 17 GM; Start 10/30/18 at 09:00 Amlodipine Besylate (Norvasc) 10 mg DAILY PO Last administered on 11/04/18 08:48; Admin Dose 10 MG; Start 10/30/18 at 09:00 Lisinopril (Zestril) 10 mg DAILY PO Last administered on 11/04/18 08:48; Admin Dose 10 MG; Start 10/30/18 at 09:00 Levalbuterol (Xopenex Neb) 1.25 mg Q4H RESP THERAPY PRN HHN sob Last adm inistered on 11/03/18 22:51; Admin Dose 1.25 MG; Start 10/30/18 at 12:00 Famotidine (Pepcid) 20 mg BID PO Last administered on 11/04/18 08:48; Admin Dose 20 MG; Start 10/30/18 at 21:00 Metoprolol Tartrate (Lopressor) 25 mg BID PO Last administered on 11/04/18 08:48; Admin Dose 25 MG; Start 11/01/18 at 21:00 Magnesium Hydroxide (Milk Of Mag) 30 ml BID PRN PO CONSTIPATION; Start 11/01/18 at 20:30 Metoclopramide HCl (Reglan) 10 mg Q6H PRN IV NAUSEA/VOMITING; Start 11/02/18 at 13:30 Assessment/Plan Hospital Course (Demo Recall) 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 Now NSVT as well- will follow post bronch. 2. Hypertension. Continue current blood pressure regimen. Up-titrate CHAD inhibitor as needed. Treated. 3. Mineral bone disorder. Monitor calcium and phosphorus levels. 4. Pneumonia. Continue antibiotic regimen. Con't anti-Bx. 5. Chronic obstructive pulmonary disease. Continue medical management. On rx now. Pulmonary on board. 6. History of lupus. 7. History of Chiari malformation- defer to neurology. No new changes 8. Migraines. Continue medical management. 9. CP - on meds - stress test EF 42%, no ischemia. IJEOMA BUITRAGO MD Nov 04, 2018 12:48
--- NOTE | 2018-11-04 14:04 | CONS ---
Assessment/Plan Assessment/Plan Hospital Course (Demo Recall) No acute events overnight patient is awake looks comfortable no fevers WBC 18.3 platelets 409 no shift no bands BUN [address] of the chest this morning revealed complete opacification of the right lower lobe with volume loss. Underlying infiltrate cannot be excluded. Please see full report in the chart Allergy: Levaquin Antimicrobials: Rocephin Physical examination: This is obese swelling developed and very pleasant elderly white man who is alert in no distress. Head atraumatic normocephalic neck is supple chest rise symmetrical breath sounds diminished to bases. Heart: S1-S2. Abdomen soft bowel sounds present. Assessment: 1. Acute hypoxemic respiratory failure 2. Right upper lobe pneumonia questionable endobronchial lesion 3. COPD 4. BPH 5. SVT 6. History of lupus 7. History of Chiari malformation status post surgery Plan: Clinically stable, leukocytosis persists, patient received Decadron dose on admission, pulmonary recommendations noted, plan for bronchoscopy tomorrow Microbiology: Blood cultures negative, influenza swab negative Consultation Date/Type/Reason Admit Date/Time Oct 28, 2018 at 13:40 Initial Consult Date Type of Consult id Requesting Provider: CHRISTOPHER MOORE NP Date/Time of Note DATE: 11/04/18 TIME: 14:03 Exam/Review of Systems Exam Vitals Vital Signs Date Temp Pulse Resp B/P (MAP) Pulse Ox O2 O2 Flow FiO2 Time Delivery Rate 11/04/18 98.3 63 18 117/61 92 11:21 (79) 11/04/18 Nasal 2.0 07:35 Cannula 11/04/18 32 02:55 Intake and Output 11/03/18 11/03/18 11/04/18 1515:00 23:00 07:00 IntakeIntake Total 600 ml BalanceBalance 600 ml Results Result Diagram: 11/04/18 0608 11/04/18 0607 Results 24hrs Laboratory Tests Test 11/04/18 06:07 11/04/18 06:08 Sodium Level 141 Potassium Level 4.4 Chloride Level 105 Carbon Dioxide Level 28 Anion Gap 8 Blood Urea Nitrogen 30 H Creatinine 1.19 Est Glomerular Filtrat Rate mL/min > 60 Glucose Level 111 Calcium Level 9.2 White Blood Count 18.3 H Red Blood Count 4.64 L Hemoglobin 13.4 L Hematocrit 40.8 L Mean Corpuscular Volume 87.9 Mean Corpuscular Hemoglobin 28.9 L Mean Corpuscular Hemoglobin Concent 32.8 Red Cell Distribution Width 12.6 Platelet Count 409 Mean Platelet Volume 9.9 Immature Granulocytes % 0.800 H Neutrophils % 50.4 Lymphocytes % 10.8 L Monocytes % 9.9 Eosinophils % 27.0 H Basophils % 1.1 Nucleated Red Blood Cells % 0.0 Immature Granulocytes # 0.150 H Neutrophils # 9.2 H Lymphocytes # 2.0 Monocytes # 1.8 H Eosinophils # 4.9 H Basophils # 0.2 H Nucleated Red Blood Cells # 0.0 Phosphorus Level 4.5 Magnesium Level 2.2 Medications Medication Current Medications Hydroxychloroquine Sulfate (Plaquenil) 200 mg BID PO Last administered on 11/04/18 08:48; Admin Dose 200 MG; Start 10/28/18 at 21:00 Fluticasone/ Vilanterol (Breo Ellipta 100-25 Mcg Inh) 1 inh DAILY INH Last administered on 11/04/18 08:48; Admin Dose 1 INH; Start 10/29/18 at 09:00 Hydralazine HCl (Apresoline) 10 mg Q4H PRN IV sbp>160 Last administered on 10/29/18 17:07; Admin Dose 10 MG; Start 10/28/18 at 15:30 IV Flush (NS 3 ml) 3 ml PER PROTOCOL IV ; Start 10/28/18 at 15:30 Ondansetron HCl (Zofran Inj) 4 mg Q6H PRN IV NAUSEA/VOMITING Last administered on 11/03/18 21:16; Admin Dose 4 MG; Start 10/28/18 at 15:30 Acetaminophen (Tylenol Supp) 650 mg Q6H PRN [place] .PAIN 1-3 OR TEMP; Start 10/28/18 at 15:30 Morphine Sulfate (morphine) 2 mg Q4H PRN IV .SEVERE PAIN 7-10 Last administered on 10/29/18 18:51; Admin Dose 2 MG; Start 10/28/18 at 15:30 Enoxaparin Sodium (Lovenox) 40 mg DAILY SC Last administered on 11/04/18 08:52; Admin Dose 40 MG; Start 10/29/18 at 09:00 Ceftriaxone Sodium 50 ml @ 100 mls/hr Q24H IVPB Last administered on 11/03/18 17:33; Admin Dose 100 MLS/HR; Start 10/28/18 at 17:00 Ondansetron HCl (Zofran Tab) 4 mg Q6H PRN PO NAUSEA AND/OR VOMITING; Start 10/28/18 at 16:00 Oxycodone HCl (Roxicodone) 30 mg BID PRN PO MODERATE PAIN LEVEL 4-6 Last administered on 11/03/18 08:25; Admin Dose 30 MG; Start 10/28/18 at 19:00 Tamsulosin HCl (Flomax) 0.4 mg HS PO Last administered on 11/03/18 21:10; Admin Dose 0.4 MG; Start 10/28/18 at 21:00 Sumatriptan Succinate (Imitrex) 50 mg PRN PRN PO MIGRAINE Last administered on 10/30/18 17:39; Admin Dose 50 MG; Start 10/28/18 at 19:30 Zolpidem Tartrate (Ambien) 5 mg HS MAY REPEAT X 1 PRN PO INSOMNIA Last administered on 11/02/18 21:06; Admin Dose 5 MG; Start 10/28/18 at 17:30 Oxycodone HCl (Oxycontin) 60 mg Q8 PO Last administered on 11/04/18 06:22; Admin Dose 60 MG; Start 10/28/18 at 22:00 Clonidine (Catapres) 0.1 mg Q4H PRN PO sbp>160 Last administered on 10/30/18 08:00; Admin Dose 0.1 MG; Start 10/29/18 at 09:00 Polyethylene Glycol (Miralax) 17 gm DAILY PO Last administered on 10/31/18 08:51; Admin Dose 17 GM; Start 10/30/18 at 09:00 Amlodipine Besylate (Norvasc) 10 mg DAILY PO Last administered on 11/04/18 08:48; Admin Dose 10 MG; Start 10/30/18 at 09:00 Lisinopril (Zestril) 10 mg DAILY PO Last administered on 11/04/18 08:48; Admin Dose 10 MG; Start 10/30/18 at 09:00 Levalbuterol (Xopenex Neb) 1.25 mg Q4H RESP THERAPY PRN HHN sob Last administered on 11/03/18 22:51; Admin Dose 1.25 MG; Start 10/30/18 at 12:00 Famotidine (Pepcid) 20 mg BID PO Last administered on 11/04/18at 08:48; Admin Dose 20 MG; Start 10/30/18 at 21:00 Metoprolol Tartrate (Lopressor) 25 mg BID PO Last administered on 11/04/18at 08: 48; Admin Dose 25 MG; Start 11/01/18 at 21:00 Magnesium Hydroxide (Milk Of Mag) 30 ml BID PRN PO CONSTIPATION; Start 11/01/18 at 20:30 Metoclopramide HCl (Reglan) 10 mg Q6H PRN IV NAUSEA/VOMITING; Start 11/02/18 at 13:30 ROCKY WILSON NP Nov 04, 2018 14:04
[2018-11-04 15:33] VITALS: BP 112/65; PULSE 57; RESP 18
[2018-11-04] MEDS: CEFTRIAXONE 2 GM/50 ML (PMX) 50 ML IVPB SCH (16:47)
[2018-11-04 20:00] VITALS: BP 111/54; PULSE 71; RESP 20
[2018-11-04] MEDS: TAMSULOSIN (SR) 0.4 MG CAP PO SCH (20:09)
[2018-11-05] VITALS (13 sets, daily range): BP systolic 94–135; BP diastolic 50–89; PULSE 72–94; RESP 18–24
[2018-11-05] MEDS: oxyCODONE (CR) 20 MG TAB [oxyCONTIN] PO SCH ×3 (06:55→21:44)
--- NOTE | 2018-11-05 08:16 | PN ---
DATE: 11/05/2018 SUBJECTIVE: The patient is pending possible bronchoscopy. No other events noted. OBJECTIVE: VITAL SIGNS: Blood pressure is 112/64, respirations 20, pulse 78, temperature 97.6. HEENT: Head is normocephalic. NECK: Supple. HEART: Regular rate. LUNGS: Show diminished breath sounds at the base. ABDOMEN: Soft, nontender to palpation without rebound or guarding. EXTREMITIES: Negative for clubbing, cyanosis, no edema. DERMATOLOGIC: No rashes. MUSCULOSKELETAL: No joint effusion. NEUROLOGIC: No change in exam. MEDICATIONS: Have been reviewed. LABORATORY DATA: Have been reviewed. IMAGING STUDIES: Have been reviewed. ASSESSMENT AND PLAN: 1. Nonoliguric acute kidney injury. Etiology secondary to hemodynamics. Renal function is improved . Continue to monitor. 2. Hypertension. Continue current blood pressure regimen. 3. Mineral bone disorder. Monitor calcium and phosphorus level. 4. Pneumonia. Continue antibiotic therapy. The patient is pending possible bronchoscopy. 5. Respiratory failure secondary to pneumonia and chronic obstructive pulmonary disease exacerbation . Continue current treatment plan. 6. History of lupus. 7. History of migraines. 8. Sinus arrhythmia, currently in sinus rhythm. Follow up with cardiology. Dictated By: ZAID FISH/LOUIE Conf#: [id number] DID#: [id number]
[2018-11-05] MEDS: LISINOPRIL 10 MG TAB PO SCH (08:28)
[2018-11-05] MEDS: METOPROLOL 25 MG TAB PO SCH ×2 (08:28→21:44)
[2018-11-05] MEDS: POLYETHYLENE GLYCOL 17 GM PACKET PO SCH (08:28)
[2018-11-05] MEDS: HYDROXYCHLOROQUINE 200 MG TAB PO SCH ×2 (08:28→21:43)
[2018-11-05] MEDS: FAMOTIDINE 20 MG TAB PO SCH ×2 (08:29→21:43)
[2018-11-05] MEDS: AMLODIPINE 10 MG TAB PO SCH (08:29)
[2018-11-05] MEDS: FLUTICASONE/VILANTEROL 100-25 INH SCH (08:31)
[2018-11-05] MEDS: ENOXAPARIN 40 MG/0.4 ML SYG SC SCH (08:31)
--- NOTE | 2018-11-05 09:29 | CONS ---
Assessment/Plan Assessment/Plan Assessment/Plan (Daily) Assessment and recommendations; 1. Patient admitted with dense right upper lobe pneumonia without any interval improvement despite adequate antimicrobial coverage. CT chest showing right lower lobe atelectasis likely from endobronchial lesion. 2. COPD. 3. History of lupus. 4. BPH. 5. History of Budd-Chiari malformation status post repair. Continue current supportive care. Patient scheduled for bronchoscopy this morning. Consent was obtained yesterday from patient. Procedure was explained to him in detail. Consultation Date/Type/Reason Admit Date/Time Oct 28, 2018 at 13:40 Initial Consult Date 11/04/18 Type of Consult Pulmonary Patient is a pleasant 62-year-old gentleman who was admitted on the second of this month with a few days history of shortness of breath and coughing. Upon evaluation a chest x-ray was done which showed right lower lobe pneumonia. Patient has been on appropriate antimicrobial regimen. Despite adequate treatment, CT imaging of the chest showing persistent right lower lobe conso lidation with possibly right lower lobe atelectasis due to endobronchial lesion. Patient denies any weight loss, chest pain, complains of scant cough without any hemoptysis or sputum production. According to him he does not have any chronic respiratory symptoms. Past medical history; 1. Possibly underlying COPD. Asymptomatic though. 2. History of migraine. 3. Lupus. 4. BPH. 5. History of Budd-Chiari malformation. Status post treatment. Medications; reviewed. Allergies; Levaquin. Social history; patient has a extensive smoking history. Just recently quit smoking few weeks ago. No history of alcohol drug abuse. Family history; noncontributory. Patient is . 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 Review of systems; denies any headache, visual changes, dysphagia. Any chest pain, angina, wheezing. Complains of scant cough without any sputum production or hemoptysis. Denies any weight loss. Denies any abdominal pain, nausea vomiting. Any melena or hematochezia. Any urinary symptoms. Any edema orthopnea. Denies any chronic respiratory symptoms. General exam; middle-aged male, awake alert, currently in no distress. Requesting Provider: CHRISTOPHER MOORE NP Date/Time of Note DATE: 11/05/18 TIME: 09:27 24 HR Interval Summary Free Text/Dictation Patient's condition is stable. Complains of scant cough. General exam; middle-aged male, awake alert, currently no distress. Exam/Review of Systems Exam Vitals Vital Signs Date Temp Pulse Resp B/P (MAP) Pulse Ox O2 O2 Flow FiO2 Time Delivery Rate 11/05/18 Nasal 2.0 08:03 Cannula 11/05/18 98.8 86 20 129/64 92 07:55 (85) 11/04/18 32 02:55 Intake and Output 11/04/18 11/04/18 11/05/18 1515:00 23:00 07:00 IntakeIntake Total 1150 ml 400 ml 600 ml BalanceBalance 1150 ml 400 ml 600 ml Exam H EENT exam; supple neck, no JVD. No lymphadenopathy. Midline trachea. No thyromegaly. Patient has fair dentition. No neck masses. Chest exam; diminished breath sounds like regular. S1-S2 audible, no murmurs. Regular rhythm. Abdomen exam; soft, nontender. No organomegaly. Bowel sounds audible. Extremity exam; no peripheral edema clubbing. STEAM [employer]ER exam; no focal deficit. Results Result Diagram: 11/05/18 0631 11/05/18 0631 Results 24hrs Laboratory Tests Test 11/05/18 06:31 11/05/18 08:33 White Blood Count 15.7 H Red Blood Count 4.75 Hemoglobin 13.8 L Hematocrit 42.0 Mean Corpuscular Volume 88.4 Mean Corpuscular Hemoglobin 29.1 Mean Corpuscular Hemoglobin Concent 32.9 Red Cell Distribution Width 12.6 Platelet Count 401 Mean Platelet Volume 9.9 Immature Granulocytes % 0.800 H Neutrophils % 47.2 Lymphocytes % 13.4 L Monocytes % 8.2 Eosinophils % 29.1 H Basophils % 1.3 Nucleated Red Blood Cells % 0.0 Immature Granulocytes # 0.120 H Neutrophils # 7.4 Lymphocytes # 2.1 Monocytes # 1.3 H Eosinophils # 4.6 H Basophils # 0.2 H Nucleated Red Blood Cells # 0.0 Sodium Level 142 Potassium Level 4.3 Chloride Level 106 Carbon Dioxide Level 27 Anion Gap 9 Blood Urea Nitrogen 28 H Creatinine 1.23 Est Glomerular Filtrat Rate mL/min 60 Glucose Level 116 Calcium Level 9.3 Phosphorus Level 4.6 Magnesium Level 2.1 Lab Scanned Report REFERENCE LAB Medications Medication Current Medications Hydroxychloroquine Sulfate (Plaquenil) 200 mg BID PO Last administered on 11/05/18 08:28; Admin Dose 200 MG; Start 10/28/18 at 21:00 Fluticasone/ Vilanterol (Breo Ellipta 100-25 Mcg Inh) 1 inh DAILY INH Last administered on 11/05/18 08:31; Admin Dose 1 INH; Start 10/29/18 at 09:00 Hydralazine HCl (Apresoline) 10 mg Q4H PRN IV sbp>160 Last administered on 10/29/18 17:07; Admin Dose 10 MG; Start 10/28/18 at 15:30 IV Flush (NS 3 ml) 3 ml PER PROTOCOL IV ; Start 10/28/18 at 15:30 Ondansetron HCl (Zofran Inj) 4 mg Q6H PRN IV NAUSEA/VOMITING Last administered on 11/03/18 21:16; Admin Dose 4 MG; Start 10/28/18 at 15:30 Acetaminophen (Tylenol Supp) 650 mg Q6H PRN [place] .PAIN 1-3 OR TEMP; Start 10/28/18 at 15:30 Morphine Sulfate (morphine) 2 mg Q4H PRN IV .SEVERE PAIN 7-10 Last administered on 10/29/18 18:51; Admin Dose 2 MG; Start 10/28/18 at 15:30 Enoxaparin Sodium (Lovenox) 40 mg DAILY SC Last administered on 11/05/18 08:31; Admin Dose 40 MG; Start 10/29/18 at 09:00 Ceftriaxone Sodium 50 ml @ 100 mls/hr Q24H IVPB Last administered on 11/04/18 16:47; Admin Dose 100 MLS/HR; Start 10/28/18 at 17:00 Ondansetron HCl (Zofran Tab) 4 mg Q6H PRN PO NAUSEA AND/OR VOMITING; Start 10/28/18 at 16:00 Oxycodone HCl (Roxicodone) 30 mg BID PRN PO MODERATE PAIN LEVEL 4-6 Last administered on 11/03/18 08:25; Admin Dose 30 MG; Start 10/28/18 at 19:00 Tamsulosin HCl (Flomax) 0.4 mg HS PO Last administered on 11/04/18 20:09; Admin Dose 0.4 MG; Start 10/28/18 at 21:00 Sumatriptan Succinate (Imitrex) 50 mg PRN PRN PO MIGRAINE Last administered on 10/30/18 17:39; Admin Dose 50 MG; Start 10/28/18 at 19:30 Zolpidem Tartrate (Ambien) 5 mg HS MAY REPEAT X 1 PRN PO INSOMNIA Last administered on 11/02/18 21:06; Admin Dose 5 MG; Start 10/28/18 at 17:30 Oxycodone HCl (Oxycontin) 60 mg Q8 PO Last administered on 11/05/18 06:55; Admin Dose 60 MG; Start 10/28/18 at 22:00 Clonidine (Catapres) 0.1 mg Q4H PRN PO sbp>160 Last administered on 10/30/18 08:00; Admin Dose 0.1 MG; Start 10/29/18 at 09:00 Polyethylene Glycol (Miralax) 17 gm DAILY PO Last administered on 10/31/18 08:51; Admin Dose 17 GM; Start 10/30/18 at 09:00 Amlodipine Besylate (Norvasc) 10 mg DAILY PO Last administered on 11/05/18 08:29; Admin Dose 10 MG; Start 10/30/18 at 09:00 Lisinopril (Zestril) 10 mg DAILY PO Last administered on 11/05/18 08:28; Admin Dose 10 MG; Start 10/30/18 at 09:00 Levalbuterol (Xopenex Neb) 1.25 mg Q4H RESP THERAPY PRN HHN sob Last administered on 11/03/18 22:51; Admin Dose 1.25 MG; Start 10/30/18 at 12:00 Famotidine (Pepcid) 20 mg BID PO Last administered on 11/05/18 08:29; Admin Dose 20 MG; Start 10/30/18 at 21:00 Metoprolol Tartrate (Lopressor) 25 mg BID PO Last administered on 11/05/18 08:28; Admin Dose 25 MG; Start 11/01/18 at 21:00 Magnesium Hydroxide (Milk Of Mag) 30 ml BID PRN PO CONSTIPATION; Start 11/01/18 at 20:30 Metoclopramide HCl (Reglan) 10 mg Q6H PRN IV NAUSEA/VOMITING; Start 11/02/18 at 13:30 QARNI,AMBROCIO Nov 05, 2018 09:29
--- NOTE | 2018-11-05 10:43 | PN ---
Date/Time of Note Date/Time of Note DATE: 11/05/18 TIME: 10:41 Assessment/Plan VTE Prophylaxis Risk score (from Ns)>0 risk: 2 SCD applied (from Ns): Yes Pharmacological prophylaxis: LMWH Lines/Catheters IV Catheter Type (from [facility] Saline Lock Urinary Cath still in place: No Assessment/Plan Hospital Course SUBJECTIVE: Denies any chest pain. Scheduled for bronchoscopy today. OBJECTIVE: Physical Exam General: Adequately build 62 year-old male lying in bed in no apparent distress. HEENT: Normocephalic, atraumatic. Eyes: Anicteric sclerae, conjunctivae clear. ENT: Nasal septum midline, oral mucosa is dry. Neck supple. Respiratory: Bilaterally diminished breath sounds. No use of accessory muscles of respiration. B/L coarse breath sounds. Cardiovascular: S1, S2 heard. Regular rate and rhythm. Abdomen: Soft, nontender, and nondistended. Genitourinary: Deferred. Extremities: No cyanosis, no clubbing, no edema. Peripheral pulses palpable. Neurologic: The patient is awake, alert, and oriented. Skin: Normal skin turgor. No skin rashes. Labs & Vitals per chart ASSESSMENT & PLAN 62-year-old male with a past medical history of lupus, Chiari malformation status post brain [id number] years ago, chronic pain, HTN, prostate hypertrophy, COPD, and migraine headaches who presented to the emergency room with a chief complaint of dyspnea with chest x-ray showing mild bibasilar opacities with underlying leukocytosis, was admitted to inpatient setting for further treatment and evaluation. 1. Community-acquired pneumonia. Continue Rocephin. The patient had an allergic reaction to fluoroquinolones. 2. Complete opacification of the right lower lobe with volume loss. Etiology unclear. Chest US negative for any pleural effusion. Pulmonology following. Scheduled for bronchoscopy today. 3. COPD. Continue inhaled bronchodilators (SAB and LABA). 4. Hypertension. Continue antihypertensives. 5. Supraventricular tachycardia. Continue beta-blockers. Patient being followed by cardiology. 6. Acute nonoliguric kidney injury. Resolved. Being followed by nephrology. 7. Migraine headaches. Continue ergot alkaloids. 8. Lupus. Continue hydroxychloroquine. 9. History of Chiari malformation, status post surgical intervention. 10. Fluids, electrolytes, and nutrition. Regular diet. 11. DVT prophylaxis. Subcutaneous Lovenox. 12. Plan. Continue antimicrobials as per ID. Continue beta-blockers. Disposition. Scheduled for bronchoscopy today. The patient was seen in collaboration with Dr. Coleman. Result Diagram: 11/05/1831 11/05/18 0631 Results 24hrs Laboratory Tests Test 11/05/18 06:31 11/05/18 08:33 White Blood Count 15.7 H Red Blood Count 4.75 Hemoglobin 13.8 L Hematocrit 42.0 Mean Corpuscular Volume 88.4 Mean Corpuscular Hemoglobin 29.1 Mean Corpuscular Hemoglobin Concent 32.9 Red Cell Distribution Width 12.6 Platelet Count 401 Mean Platelet Volume 9.9 Immature Granulocytes % 0.800 H Neutrophils % 47.2 Lymphocytes % 13.4 L Monocytes % 8.2 Eosinophils % 29.1 H Basophils % 1.3 Nucleated Red Blood Cells % 0.0 Immature Granulocytes # 0.120 H Neutrophils # 7.4 Lymphocytes # 2.1 Monocytes # 1.3 H Eosinophils # 4.6 H Basophils # 0.2 H Nucleated Red Blood Cells # 0.0 Sodium Level 142 Potassium Level 4.3 Chloride Level 106 Carbon Dioxide Level 27 Anion Gap 9 Blood Urea Nitrogen 28 H Creatinine 1.23 Est Glomerular Filtrat Rate mL/min 60 Glucose Level 116 Calcium Level 9.3 Phosphorus Level 4.6 Magnesium Level 2.1 Lab Scanned Report REFERENCE LAB Exam/Review of Systems Exam Vitals Vital Signs Date Temp Pulse Resp B/P (MAP) Pulse Ox O2 O2 Flow FiO2 Time Delivery Rate 11/05/18 Nasal 2.0 08:03 Cannula 11/05/18 98.8 86 20 129/64 92 07:55 (85) 11/04/18 32 02:55 Intake and Output 11/04/18 11/04/18 11/05/18 1515:00 23:00 07:00 IntakeIntake Total 1150 ml 400 ml 600 ml BalanceBalance 1150 ml 400 ml 600 ml Results Results 24hrs Laboratory Tests Test 11/05/18 06:31 11/05/18 08:33 White Blood Count 15.7 H Red Blood Count 4.75 Hemoglobin 13.8 L Hematocrit 42.0 Mean Corpuscular Volume 88.4 Mean Corpuscular Hemoglobin 29.1 Mean Corpuscular Hemoglobin Concent 32.9 Red Cell Distribution Width 12.6 Platelet Count 401 Mean Platelet Volume 9.9 Immature Granulocytes % 0.800 H Neutrophils % 47.2 Lymphocytes % 13.4 L Monocytes % 8.2 Eosinophils % 29.1 H Basophils % 1.3 Nucleated Red Blood Cells % 0.0 Immature Granulocytes # 0.120 H Neutrophils # 7.4 Lymphocytes # 2.1 Monocytes # 1.3 H Eosinophils # 4.6 H Basophils # 0.2 H Nucleated Red Blood Cells # 0.0 Sodium Level 142 Potassium Level 4.3 Chloride Level 106 Carbon Dioxide Level 27 Anion Gap 9 Blood Urea Nitrogen 28 H Creatinine 1.23 Est Glomerular Filtrat Rate mL/min 60 Glucose Level 116 Calcium Level 9.3 Phosphorus Level 4.6 Magnesium Level 2.1 Lab Scanned Report REFERENCE LAB Medications Medication Current Medications Hydroxychloroquine Sulfate (Plaquenil) 200 mg BID PO Last administered on 11/05/18 08:28; Admin Dose 200 MG; Start 10/28/18 at 21:00 Fluticasone/ Vilanterol (Breo Ellipta 100-25 Mcg Inh) 1 inh DAILY INH Last administered on 11/05/18 08:31; Admin Dose 1 INH; Start 10/29/18 at 09:00 Hydralazine HCl (Apresoline) 10 mg Q4H PRN IV sbp>160 Last administered on 10/29/18 17:07; Admin Dose 10 MG; Start 10/28/18 at 15:30 IV Flush (NS 3 ml) 3 ml PER PROTOCOL IV ; Start 10/28/18 at 15:30 Ondansetron HCl (Zofran Inj) 4 mg Q6H PRN IV NAUSEA/VOMITING Last administered on 11/03/18 21:16; Admin Dose 4 MG; Start 10/28/18 at 15:30 Acetaminophen (Tylenol Supp) 650 mg Q6H PRN [place] .PAIN 1-3 OR TEMP; Start 10/28/18 at 15:30 Morphine Sulfate (morphine) 2 mg Q4H PRN IV .SEVERE PAIN 7-10 Last administered on 10/29/18 18:51; Admin Dose 2 MG; Start 10/28/18 at 15:30 Enoxaparin Sodium (Lovenox) 40 mg DAILY SC Last administered on 11/05/18 08:31; Admin Dose 40 MG; Start 10/29/18 at 09:00 Ceftriaxone Sodium 50 ml @ 100 mls/hr Q24H IVPB Last administered on 11/04/18 16:47; Admin Dose 100 MLS/HR; Start 10/28/18 at 17:00 Ondansetron HCl (Zofran Tab) 4 mg Q6H PRN PO NAUSEA AND/OR VOMITING; Start 10/28/18 at 16:00 Oxycodone HCl (Roxicodone) 30 mg BID PRN PO MODERATE PAIN LEVEL 4-6 Last administered on 11/03/18 08:25; Admin Dose 30 MG; Start 10/28/18 at 19:00 Tamsulosin HCl (Flomax) 0.4 mg HS PO Last administered on 11/04/18 20:09; Admin Dose 0.4 MG; Start 10/28/18 at 21:00 Sumatriptan Succinate (Imitrex) 50 mg PRN PRN PO MIGRAINE Last administered on 10/30/18 17:39; Admin Dose 50 MG; Start 10/28/18 at 19:30 Zolpidem Tartrate (Ambien) 5 mg HS MAY REPEAT X 1 PRN PO INSOMNIA Last administered on 11/02/18 21:06; Admin Dose 5 MG; Start 10/28/18 at 17:30 Oxycodone HCl (Oxycontin) 60 mg Q8 PO Last administered on 11/05/18 06:55; Admin Dose 60 MG; Start 10/28/18 at 22:00 Clonidine (Catapres) 0.1 mg Q4H PRN PO sbp>160 Last administered on 10/30/18 08:00; Admin Dose 0.1 MG; Start 10/29/18 at 09:00 Polyethylene Glycol (Miralax) 17 gm DAILY PO Last administered on 10/31/18 08:51; Admin Dose 17 GM; Start 10/30/18 at 09:00 Amlodipine Besylate (Norvasc) 10 mg DAILY PO Last administered on 11/05/18 08:29; Admin Dose 10 MG; Start 10/30/18 at 09:00 Lisinopril (Zestril) 10 mg DAILY PO Last administered on 11/05/18 08:28; Admin Dose 10 MG; Start 10/30/18 at 09:00 Levalbuterol (Xopenex Neb) 1.25 mg Q4H RESP THERAPY PRN HHN sob Last administered on 7/8/19at 22:51; Admin Dose 1.25 MG; Start 10/30/18 at 12:00 Famotidine (Pepcid) 20 mg BID PO Last administered on 11/05/18at 08:29; Admin Dose 20 MG; Start 10/30/18 at 21:00 Metoprolol Tartrate (Lopressor) 25 mg BID PO Last administered on 11/05/18 08:28; Admin Dose 25 MG; Start 11/01/18 at 21:00 Magnesium Hydroxide (Milk Of Mag) 30 ml BID PRN PO CONSTIPATION; Start 11/01/18 at 20:30 Metoclopramide HCl (Reglan) 10 mg Q6H PRN IV NAUSEA/VOMITING; Start 11/02/18 at 13:30 MONTY TALLEY NP Nov 05, 2018 10:43
--- NOTE | 2018-11-05 11:05 | PREAC ---
Date/Time of Note Date/Time of Note DATE: 11/05/18 TIME: 11:03 Anesthesia Eval and Record Evaluation Time Pre-Procedure Interview DATE: 11/05/18 TIME: 11:03 Age 62 Sex male NPO: 8 hrs Preoperative diagnosis Shortness of breath Planned procedure Bronchoscopy Past Medical History Past Medical History: Includes Cardio: HTN Surgery & Anesthesia Issues No known issue Meds Anticoagulation: No Beta Inessa within 24 hr: No Reason Beta Inessa not given: Pt. not on B-Inessa Reported Medications Ondansetron Hcl* (Zofran*) 4 Mg Tab, 4 MG PO Q6H PRN for NAUSEA AND OR VOMITING, TAB 10/28/18 Temazepam* (Temazepam*) 30 Mg Capsule, 30 MG PO HS PRN for INSOMNIA, CAP 10/28/18 Oxycodone Hcl* (Oxycontin*) 60 Mg Tab.sr.12h, 60 MG PO Q8H, TAB 10/28/18 Oxycodone Hcl* (Oxycontin*) 30 Mg Tab.sr.12h, 30 MG PO NEEDED, TAB 10/28/18 Rizatriptan Benzoate (Rizatriptan Benzoate) 10 Mg Tab.rapdis, 10 MG PO NEEDED PRN for MIGRAINE, TAB may repeat after 2 hours, MAX 30 mg/24 hour 10/28/18 Hydroxychloroquine Sulfate* (Hydroxychloroquine Sulfate*) 200 Mg Tablet, 200 MG PO BID, TAB 10/28/18 Clonidine Hcl* (Clonidine Hcl*) 0.2 Mg Tablet, 0.2 MG PO BID PRN for NEEDED, TAB 10/28/18 Tamsulosin Hcl* (Flomax*) 0.4 Mg Cap.er.24h, 0.4 MG PO HS, CAP 10/28/18 Sulfamethoxazole/Trimethoprim* (Bactrim Ds* Tablet) 1 Each Tablet, 1 TAB PO BID, TAB FOR 21 DAYS, START DATE 10/17/18 10/28/18 Current Medications Hydroxychloroquine Sulfate (Plaquenil) 200 mg BID PO Last administered on 11/05/18at 08:28; Admin Dose 200 MG; Start 10/28/18 at 21:00 Fluticasone/ Vilanterol (Breo Ellipta 100-25 Mcg Inh) 1 inh DAILY INH Last administered on 11/05/18at 08:31; Admin Dose 1 INH; Start 10/29/18 at 09:00 Hydralazine HCl (Apresoline) 10 mg Q4H PRN IV sbp>160 Last administered on 10/29 17:07; Admin Dose 10 MG; Start 10/28/18 at 15:30 IV Flush (NS 3 ml) 3 ml PER PROTOCOL IV ; Start 10/28/18 at 15:30 Ondansetron HCl (Zofran Inj) 4 mg Q6H PRN IV NAUSEA/VOMITING Last administered on 11/03/18 21:16; Admin Dose 4 MG; Start 10/28/18 at 15:30 Acetaminophen (Tylenol Supp) 650 mg Q6H PRN [place] .PAIN 1-3 OR TEMP; Start 10/28/18 at 15:30 Morphine Sulfate (morphine) 2 mg Q4H PRN IV .SEVERE PAIN 7-10 Last administered on 10/29/18 18:51; Admin Dose 2 MG; Start 10/28/18 at 15:30 Enoxaparin Sodium (Lovenox) 40 mg DAILY SC Last administered on 11/05/18 08:31; Admin Dose 40 MG; Start 10/29/18 at 09:00 Ceftriaxone Sodium 50 ml @ 100 mls/hr Q24H IVPB Last administered on 11/04/18 16:47; Admin Dose 100 MLS/HR; Start 10/28/18 at 17:00 Ondansetron HCl (Zofran Tab) 4 mg Q6H PRN PO NAUSEA AND/OR VOMITING; Start 10/28/18 at 16:00 Oxycodone HCl (Roxicodone) 30 mg BID PRN PO MODERATE PAIN LEVEL 4-6 Last administered on 11/03/18 08:25; Admin Dose 30 MG; Start 10/28/18 at 19:00 Tamsulosin HCl (Flomax) 0.4 mg HS PO Last administered on 11/04/18 20:09; Admin Dose 0.4 MG; Start 10/28/18 at 21:00 Sumatriptan Succinate (Imitrex) 50 mg PRN PRN PO MIGRAINE Last administered on 10/30/18 17:39; Admin Dose 50 MG; Start 10/28/18 at 19:30 Zolpidem Tartrate (Ambien) 5 mg HS MAY REPEAT X 1 PRN PO INSOMNIA Last administered on 11/02/18 21:06; Admin Dose 5 MG; Start 10/28/18 at 17:30 Oxycodone HCl (Oxycontin) 60 mg Q8 PO Last administered on 11/05/18 06:55; Admin Dose 60 MG; Start 10/28/18 at 22:00 Clonidine (Catapres) 0.1 mg Q4H PRN PO sbp>160 Last administered on 10/30/18 08:00; Admin Dose 0.1 MG; Start 10/29/18 at 09:00 Polyethylene Glycol (Miralax) 17 gm DAILY PO Last administered on 10/31/18 08:51; Admin Dose 17 GM; Start 10/30/18 at 09:00 Amlodipine Besylate (Norvasc) 10 mg DAILY PO Last administered on 11/05/18 08:29; Admin Dose 10 MG; Start 10/30/18 at 09:00 Lisinopril (Zestril) 10 mg DAILY PO Last administered on 11/05/18 08:28; Admin Dose 10 MG; Start 10/30/18 at 09:00 Levalbuterol (Xopenex Neb) 1.25 mg Q4H RESP THERAPY PRN HHN sob Last administered on 11/03/18 22:51; Admin Dose 1.25 MG; Start 10/30/18 at 12:00 Famotidine (Pepcid) 20 mg BID PO Last administered on 11/05/18 08:29; Admin Dose 20 MG; Start 10/30/18 at 21:00 Metoprolol Tartrate (Lopressor) 25 mg BID PO Last administered on 11/05/18 08:28; Admin Dose 25 MG; Start 11/01/18 at 21:00 Magnesium Hydroxide (Milk Of Mag) 30 ml BID PRN PO CONSTIPATION; Start 11/01/18 at 20:30 Metoclopramide HCl (Reglan) 10 mg Q6H PRN IV NAUSEA/VOMITING; Start 11/02/18 at 13:30 Meds reviewed: Yes Allergies Coded Allergies: levofloxacin (Verified Allergy, Severe, NENA CECILE'S SYNDROME, 10/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) Allergies Reviewed: Yes Labs/Studies Labs Reviewed: Reviewed by anesthesiologist Result Diagram: 11/05/1831 11/05/1831 Laboratory Tests 11/05/18 06:31 test: N/A Pre-procedure Exam Last vitals Vital Signs Date Temp Pulse Resp B/P (MAP) Pulse Ox O2 O2 Flow FiO2 Time Delivery Rate 11/05/18 Nasal 2.0 08:03 Cannula 11/05/18 98.8 86 20 129/64 92 07:55 (85) 11/04/18 32 02:55 Airway: Adequate mouth opening, Adequate thyromental dist Mallampati: Mallampati III Teeth: Normal Lung: Normal Heart: Normal ASA Physical Status ASA physical status: 3 Emergency: None Planned Anesthetic General/MAC: ETT Planned Pain Management Parenteral pain med Pre-operative Attestations Prior to commencing anesthesia and surgery, the patient was re-evaluated, there was verification of: *The patient's identity *The results of appropriate recent lab work and preoperative vital signs *The above evaluation not changing prior to induction *Anesthetic plan, risk benefits, alternative and complications discussed with patient/family; questions answered; patient/family understands, accepts and wishes to proceed. HO RODRIGUEZ MD Nov 05, 2018 11:05
[2018-11-05] MEDS ORDERED: MIDAZOLAM 1 MG/ML 2 ML INJ ONE (11:07)
[2018-11-05] MEDS ORDERED: FENTAnyl 50 MCG/ML VIAL ONE (11:07)
[2018-11-05] MEDS ORDERED: LIDOCAINE 1% (MPF) 30 ML INJ ONE (11:07)
[2018-11-05] MEDS ORDERED: PROPOFOL 20 ML ONE (11:56)
[2018-11-05] MEDS ORDERED: LIDOCAINE 2% (SDV) 5 ML INJ ONE (11:56)
[2018-11-05] MEDS ORDERED: SUCCINYLCHOLINE CHLORIDE 100 MG/5 ML SYG IV ONE (11:56)
--- NOTE | 2018-11-05 12:02 | OPR ---
Date/Time of Note Date/Time of Note DATE: 11/05/18 TIME: 11:57 Operative Report Procedure Date: Nov 05, 2018 Preoperative Diagnosis Right lower lobe pneumonia. Bronchoscopy to rule out endobronchial lesion. Postoperative Diagnosis Severe mucous plugging involving the right lower lobe with mild endobronchial inflammation. Operation/Procedure Performed Bronchoscopy Surgeon see signature line Publicity Agent Anesthesiologist and respiratory therapist. OR nurse. Anesthesia Type: general Estimated Blood Loss: none Transfusion none Specimen None Grafts/Implants none Tubes/Drains None Complications none Pt Condition Post Procedure: stable Disposition: other Procedure Description Patient admitted with right lower lobe pneumonia with persistent right lower lobe consolidation and atelectasis. Bronchoscopy to rule out endobronchial lesion. Informed consent was obtained from the patient earlier, procedure was explained to him in detail. Patient consented for the procedure. Patient was brought in to the OR, anesthesia was induced by anesthesiologist and the patient was intubated. Bronchoscope was introduced via the endotracheal tube. Distal trachea was normal. Cherie was sharp and well defined. The scope was then introduced into the right mainstem bronchus with evaluation of the right upper lobe which was essentially normal. Bronchus intermedius was severely impacted by thick mucus. Multiple bronchoscope passages were required and the mucus was finally suctioned out entirely from the right lower lobe with involvement of the right middle lobe as well as superior segment of the right lower lobe with very mild underlying endobronchial inflammation. No obvious endobronchial lesions were seen. The scope was then introduced into the left mainstem bronchus with evaluation of the right upper lobe, lingula, superior segment of the lower lobe and lower lobes were all normal with very minimal mucus strands. The scope was withdrawn. Start time was 11:19 AM finish time was 11:55 AM. AMBROCIO PADRON Nov 05, 2018 12:02
[2018-11-05] MEDS ORDERED: ALBUTEROL 0.5% (NEB) 2.5 MG/0.5 ML AMP ONE (12:08)
--- NOTE | 2018-11-05 13:51 | PAC ---
Date/Time of Note Date/Time of Note DATE: 11/05/18 TIME: 13:48 Post-Anesthesia Notes Post-Anesthesia Note Last documented vital signs Vital Signs Date Temp Pulse Resp B/P (MAP) Pulse Ox O2 O2 Flow FiO2 Time Delivery Rate 11/05/18 98.6 79 20 99/57 (71) 91 Nasal 4.0 13:05 Cannula 11/04/18 32 02:55 Activity: WNL Respiratory function: WNL Cardiovascular function: WNL Mental status: Baseline Pain reasonably controlled: Yes Hydration appropriate: Yes Nausea/Vomiting absent: Yes Comments BP:112/67, P:88, Spo2:94% on FM 4lit, T:98,8 HO RODRIGUEZ MD Nov 05, 2018 13:51
[2018-11-05] MEDS ORDERED: HYDROmorphONE 1 MG/5 ML IV SYRINGE IV PRN ×4 (14:00→16:00)
[2018-11-05] MEDS ORDERED: MEPERIDINE 25 MG INJ IV PRN ×2 (14:00→16:00)
[2018-11-05] MEDS ORDERED: ONDANSETRON 4 MG INJ IV PRN ×2 (14:00→16:00)
[2018-11-05] MEDS ORDERED: RACEPINEPHRINE 2.25%(NEB) 0.5 ML AMP HHN ONE (14:00)
[2018-11-05] MEDS ORDERED: FENTAnyl 50 MCG/ML VIAL IV PRN ×2 (14:00→16:00)
[2018-11-05] MEDS ORDERED: ALBUTEROL 0.083% (NEB) 2.5 MG/3 ML AMP HHN PRN (14:00)
--- NOTE | 2018-11-05 14:24 | CONS ---
Assessment/Plan Assessment/Plan Hospital Course (Demo Recall) IMP: 1.Chest pain-neg trop x 3 2.shortness of breath 3.COPD 4.renal insuff 5.SVT-no recurrence on BB 6. Cardiomyopathy-with mildly depresed LVEF 40-45% by echo this admit. No ischemia by lexiscan this admit Recc: -Tele -Contineu norvasc/BB/zestril and follow BP clsoely -Continu abx's and f/u cx data -Continue bronchodilators -For bronchoscopy today Consultation Date/Type/Reason Admit Date/Time Oct 28, 2018 at 13:40 Initial Consult Date 10/29/18 Type of Consult Cardiology Reason for Consultation sob Requesting Provider: CHRISTOPHER MOORE NP Date/Time of Note DATE: 11/05/18 TIME: 14:21 Exam/Review of Systems Vital Signs Vitals Vital Signs Date Temp Pulse Resp B/P (MAP) Pulse Ox O2 O2 Flow FiO2 Time Delivery Rate 11/05/18 2.0 14:18 11/05/18 98.6 79 20 99/57 (71) 91 Nasal 13:05 Cannula 11/04/18 32 02:55 Intake and Output 11/04/18 11/04/18 11/05/18 1515:00 23:00 07:00 IntakeIntake Total 1150 ml 400 ml 600 ml BalanceBalance 1150 ml 400 ml 600 ml Exam Exam Review of Systems: CONSTITUTIONAL: No fevers, chills. PULMONARY: No sob CARDIOVASCULAR: No chest pain/palpitations GASTROINTESTINAL: No nausea/vomiting. GENITOURINARY: No hematuria/dysuria. MUSCULOSKELETAL: No myagias/arthalgias. PSYCHIATRIC: The patient denies depression. NEUROLOGIC: No weakness Constitutional: alert Psych: no complaints Head: normocephalic ENMT: mucosa pink and moist Neck: supple, jvd (9 cm water) Respiratory: diminished breath sounds (at bases/B) Cardiovascular: regular rate and rhythm Gastrointestinal: soft, non-tender Musculoskeletal: muscle tone (normal) Extremities: edema (none) Neurological: other (No focal deficits) Labs Result Diagram: 11/05/18 0631 11/05/18 0631 Results 24hrs Laboratory Tests Test 11/05/18 06:31 11/05/18 08:33 White Blood Count 15.7 H Red Blood Count 4.75 Hemoglobin 13.8 L Hematocrit 42.0 Mean Corpuscular Volume 88.4 Mean Corpuscular Hemoglobin 29.1 Mean Corpuscular Hemoglobin Concent 32.9 Red Cell Distribution Width 12.6 Platelet Count 401 Mean Platelet Volume 9.9 Immature Granulocytes % 0.800 H Neutrophils % 47.2 Lymphocytes % 13.4 L Monocytes % 8.2 Eosinophils % 29.1 H Basophils % 1.3 Nucleated Red Blood Cells % 0.0 Immature Granulocytes # 0.120 H Neutrophils # 7.4 Lymphocytes # 2.1 Monocytes # 1.3 H Eosinophils # 4.6 H Basophils # 0.2 H Nucleated Red Blood Cells # 0.0 Sodium Level 142 Potassium Level 4.3 Chloride Level 106 Carbon Dioxide Level 27 Anion Gap 9 Blood Urea Nitrogen 28 H Creatinine 1.23 Est Glomerular Filtrat Rate mL/min 60 Glucose Level 116 Calcium Level 9.3 Phosphorus Level 4.6 Magnesium Level 2.1 Lab Scanned Report REFERENCE LAB Medications Medications Current Medications Hydroxychloroquine Sulfate (Plaquenil) 200 mg BID PO Last administered on 11/05/18 08:28; Admin Dose 200 MG; Start 10/28/18 at 21:00 Fluticasone/ Vilanterol (Breo Ellipta 100-25 Mcg Inh) 1 inh DAILY INH Last administered on 11/05/18 08:31; Admin Dose 1 INH; Start 10/29/18 at 09:00 Hydralazine HCl (Apresoline) 10 mg Q4H PRN IV sbp>160 Last administered on 10/29/18 17:07; Admin Dose 10 MG; Start 10/28/18 at 15:30 IV Flush (NS 3 ml) 3 ml PER PROTOCOL IV ; Start 10/28/18 at 15:30 Ondansetron HCl (Zofran Inj) 4 mg Q6H PRN IV NAUSEA/VOMITING Last administered on 11/03/18 21:16; Admin Dose 4 MG; Start 10/28/18 at 15:30 Acetaminophen (Tylenol Supp) 650 mg Q6H PRN IN .PAIN 1-3 OR TEMP; Start 10/28/18 at 15:30 Morphine Sulfate (morphine) 2 mg Q4H PRN IV .SEVERE PAIN 7-10 Last administered on 10/29/18at 18:51; Admin Dose 2 MG; Start 10/28/18 at 15:30 Enoxaparin Sodium (Lovenox) 40 mg DAILY SC Last administered on 11/05/18 08:31; Admin Dose 40 MG; Start 10/29/18 at 09:00 Ceftriaxone Sodium 50 ml @ 100 mls/hr Q24H IVPB Last administered on 11/04/18 16:47; Admin Dose 100 MLS/HR; Start 10/28/18 at 17:00 Ondansetron HCl (Zofran Tab) 4 mg Q6H PRN PO NAUSEA AND/OR VOMITING; Start 10/28/18 at 16:00 Oxycodone HCl (Roxicodone) 30 mg BID PRN PO MODERATE PAIN LEVEL 4-6 Last administered on 11/03/18 08:25; Admin Dose 30 MG; Start 10/28/18 at 19:00 Tamsulosin HCl (Flomax) 0.4 mg HS PO Last administered on 11/04/18 20:09; Admin Dose 0.4 MG; Start 10/28/18 at 21:00 Sumatriptan Succinate (Imitrex) 50 mg PRN PRN PO MIGRAINE Last administered on 10/30/18 17:39; Admin Dose 50 MG; Start 10/28/18 at 19:30 Zolpidem Tartrate (Ambien) 5 mg HS MAY REPEAT X 1 PRN PO INSOMNIA Last administered on 11/02/18 21:06; Admin Dose 5 MG; Start 10/28/18 at 17:30 Oxycodone HCl (Oxycontin) 60 mg Q8 PO Last administered on 11/05/18 06:55; Admin Dose 60 MG; Start 10/28/18 at 22:00 Clonidine (Catapres) 0.1 mg Q4H PRN PO sbp>160 Last administered on 10/30/18 08:00; Admin Dose 0.1 MG; Start 10/29/18 at 09:00 Polyethylene Glycol (Miralax) 17 gm DAILY PO Last administered on 10/31/18 08:51; Admin Dose 17 GM; Start 10/30/18 at 09:00 Amlodipine Besylate (Norvasc) 10 mg DAILY PO Last administered on 11/05/18 08:29; Admin Dose 10 MG; Start 10/30/18 at 09:00 Lisinopril (Zestril) 10 mg DAILY PO Last administered on 11/05/18 08:28; Admin Dose 10 MG; Start 10/30/18 at 09:00 Levalbuterol (Xopenex Neb) 1.25 mg Q4H RESP THERAPY PRN HHN sob Last administer ed on 11/03/18at 22:51; Admin Dose 1.25 MG; Start 10/30/18 at 12:00 Famotidine (Pepcid) 20 mg BID PO Last administered on 11/05/18at 08:29; Admin Dose 20 MG; Start 10/30/18 at 21:00 Metoprolol Tartrate (Lopressor) 25 mg BID PO Last administered on 11/05/18 08:28; Admin Dose 25 MG; Start 11/01/18 at 21:00 Magnesium Hydroxide (Milk Of Mag) 30 ml BID PRN PO CONSTIPATION; Start 11/01/18 at 20:30 Metoclopramide HCl (Reglan) 10 mg Q6H PRN IV NAUSEA/VOMITING; Start 11/02/18 at 13:30 Hydromorphone HCl (Dilaudid) 0.2 mg PACU PRN IV MILD PAIN 1-3; Start 11/05/18 at 14:00; Stop 11/05/18 at 18:00 Hydromorphone HCl (Dilaudid) 0.4 mg PACU PRN IV MOD PAIN 4-6; Start 11/05/18 at 14:00; Stop 11/05/18 at 18:00 Fentanyl (Sublimaze) 25 mcg PACU ORDER PRN IV MILD PAIN 1-3; Start 11/05/18 at 14:00; Stop 11/05/18 at 18:00 Ondansetron HCl (Zofran Inj) 4 mg PACU ORDER PRN IV NAUSEA/VOMITING; Start 11/05/18 at 14:00; Stop 11/05/18 at 18:00 Albuterol (Proventil 0.083% (Neb)) 2.5 mg PACU ORDER PRN HHN .WHEEZING; Start 11/05/18 at 14:00; Stop 11/05/18 at 18:00 Meperidine HCl (Demerol) 25 mg PACU ORDER PRN IV .RIGORS; Start 11/05/18 at 14:00; Stop 11/05/18 at 18:00 CHELSEA CRAIG Nov 05, 2018 14:24
--- NOTE | 2018-11-05 15:00 | CONS ---
Assessment/Plan Assessment/Plan Hospital Course (Demo Recall) No acute events overnight, s/p bronch in am==>Severe mucous plugging involving the right lower lobe with mild endobronchial inflammation. Allergy: Levaquin Antimicrobials: Rocephin Physical examination: This is obese swelling developed and very pleasant elderly white man who is alert in no distress. Head atraumatic normocephalic neck is supple chest rise symmetrical breath sounds diminished to bases. Heart: S1-S2. Abdomen soft bowel sounds present. Assessment: 1. Acute hypoxemic respiratory failure 2 to mucus pluggs 2. Right upper lobe pneumonia 3. COPD 4. BPH 5. SVT 6. History of lupus 7. History of Chiari malformation status post surgery Plan: Stable, bronchoscopy report noted, continue present care, follow pulmonary recommendations Microbiology: Blood cultures negative, influenza swab negative Consultation Date/Type/Reason Admit Date/Time Oct 28, 2018 at 13:40 Initial Consult Date Type of Consult id Requesting Provider: CHRISTOPHER MOORE NP Date/Time of Note DATE: 11/05/18 TIME: 14:58 Exam/Review of Systems Exam Vitals Vital Signs Date Temp Pulse Resp B/P (MAP) Pulse Ox O2 O2 Flow FiO2 Time Delivery Rate 11/05/18 2.0 14:18 11/05/18 98.6 79 20 99/57 (71) 91 Nasal 13:05 Cannula 11/04/18 32 02:55 Intake and Output 11/04/18 11/04/18 11/05/18 1515:00 23:00 07:00 IntakeIntake Total 1150 ml 400 ml 600 ml BalanceBalance 1150 ml 400 ml 600 ml Results Result Diagram: 11/05/18 0631 11/05/18 0631 Results 24hrs Laboratory Tests Test 11/05/18 06:31 11/05/18 08:33 White Blood Count 15.7 H Red Blood Count 4.75 Hemoglobin 13.8 L Hematocrit 42.0 Mean Corpuscular Volume 88.4 Mean Corpuscular Hemoglobin 29.1 Mean Corpuscular Hemoglobin Concent 32.9 Red Cell Distribution Width 12.6 Platelet Count 401 Mean Platelet Volume 9.9 Immature Granulocytes % 0.800 H Neutrophils % 47.2 Lymphocytes % 13.4 L Monocytes % 8.2 Eosinophils % 29.1 H Basophils % 1.3 Nucleated Red Blood Cells % 0.0 Immature Granulocytes # 0.120 H Neutrophils # 7.4 Lymphocytes # 2.1 Monocytes # 1.3 H Eosinophils # 4.6 H Basophils # 0.2 H Nucleated Red Blood Cells # 0.0 Sodium Level 142 Potassium Level 4.3 Chloride Level 106 Carbon Dioxide Level 27 Anion Gap 9 Blood Urea Nitrogen 28 H Creatinine 1.23 Est Glomerular Filtrat Rate mL/min 60 Glucose Level 116 Calcium Level 9.3 Phosphorus Level 4.6 Magnesium Level 2.1 Lab Scanned Report REFERENCE LAB Medications Medication Current Medications Hydroxychloroquine Sulfate (Plaquenil) 200 mg BID PO Last administered on 11/05/18 08:28; Admin Dose 200 MG; Start 10/28/18 at 21:00 Fluticasone/ Vilanterol (Breo Ellipta 100-25 Mcg Inh) 1 inh DAILY INH Last administered on 11/05/18 08:31; Admin Dose 1 INH; Start 10/29/18 at 09:00 Hydralazine HCl (Apresoline) 10 mg Q4H PRN IV sbp>160 Last administered on 10/29/18 17:07; Admin Dose 10 MG; Start 10/28/18 at 15:30 IV Flush (NS 3 ml) 3 ml PER PROTOCOL IV ; Start 10/28/18 at 15:30 Ondansetron HCl (Zofran Inj) 4 mg Q6H PRN IV NAUSEA/VOMITING Last administered on 11/03/18 21:16; Admin Dose 4 MG; Start 10/28/18 at 15:30 Acetaminophen (Tylenol Supp) 650 mg Q6H PRN NE .PAIN 1-3 OR TEMP; Start 10/28/18 at 15:30 Morphine Sulfate (morphine) 2 mg Q4H PRN IV .SEVERE PAIN 7-10 Last administered on 10/29/18 18:51; Admin Dose 2 MG; Start 10/28/18 at 15:30 Enoxaparin Sodium (Lovenox) 40 mg DAILY SC Last administered on 11/05/18 08:31; Admin Dose 40 MG; Start 10/29/18 at 09:00 Ceftriaxone Sodium 50 ml @ 100 mls/hr Q24H IVPB Last administered on 11/04/18 16:47; Admin Dose 100 MLS/HR; Start 10/28/18 at 17:00 Ondansetron HCl (Zofran Tab) 4 mg Q6H PRN PO NAUSEA AND/OR VOMITING; Start 10/28/18 at 16:00 Oxycodone HCl (Roxicodone) 30 mg BID PRN PO MODERATE PAIN LEVEL 4-6 Last administered on 11/03/18 08:25; Admin Dose 30 MG; Start 10/28/18 at 19:00 Tamsulosin HCl (Flomax) 0.4 mg HS PO Last administered on 11/04/18 20:09; Admin Dose 0.4 MG; Start 10/28/18 at 21:00 Sumatriptan Succinate (Imitrex) 50 mg PRN PRN PO MIGRAINE Last administered on 10/30/18 17:39; Admin Dose 50 MG; Start 10/28/18 at 19:30 Zolpidem Tartrate (Ambien) 5 mg HS MAY REPEAT X 1 PRN PO INSOMNIA Last administered on 11/02/18 21:06; Admin Dose 5 MG; Start 10/28/18 at 17:30 Oxycodone HCl (Oxycontin) 60 mg Q8 PO Last administered on 11/05/18 14:29; Admin Dose 60 MG; Start 10/28/18 at 22:00 Clonidine (Catapres) 0.1 mg Q4H PRN PO sbp>160 Last administered on 10/30/18 08:00; Admin Dose 0.1 MG; Start 10/29/18 at 09:00 Polyethylene Glycol (Miralax) 17 gm DAILY PO Last administered on 10/31/18 08:51; Admin Dose 17 GM; Start 10/30/18 at 09:00 Amlodipine Besylate (Norvasc) 10 mg DAILY PO Last administered on 11/05/18 08:29; Admin Dose 10 MG; Start 10/30/18 at 09:00 Lisinopril (Zestril) 10 mg DAILY PO Last administered on 11/05/18 08:28; Admin Dose 10 MG; Start 10/30/18 at 09:00 Levalbuterol (Xopenex Neb) 1.25 mg Q4H RESP THERAPY PRN HHN sob Last administered on 11/03/18 22:51; Admin Dose 1.25 MG; Start 10/30/18 at 12:00 Famotidine (Pepcid) 20 mg BID PO Last administered on 7/10/19at 08:29; Admin Dose 20 MG; Start 10/30/18 at 21:00 Metoprolol Tartrate (Lopressor) 25 mg BID PO Last administered on 11/05/18at 08:28; Admin Dose 25 MG; Start 11/01/18 at 21:00 Magnesium Hydroxide (Milk Of Mag) 30 ml BID PRN PO CONSTIPATION; Start 11/01/18 at 20:30 Metoclopramide HCl (Reglan) 10 mg Q6H PRN IV NAUSEA/VOMITING; Start 11/02/18 at 13:30 Hydromorphone HCl (Dilaudid) 0.2 mg PACU PRN IV MILD PAIN 1-3; Start 11/05/18 at 14:00; Stop 11/05/18 at 18:00 Hydromorphone HCl (Dilaudid) 0.4 mg PACU PRN IV MOD PAIN 4-6; Start 11/05/18 at 14:00; Stop 11/05/18 at 18:00 Fentanyl (Sublimaze) 25 mcg PACU ORDER PRN IV MILD PAIN 1-3; Start 11/05/18 at 14:00; Stop 11/05/18 at 18:00 Ondansetron HCl (Zofran Inj) 4 mg PACU ORDER PRN IV NAUSEA/VOMITING; Start 11/05/18 at 14:00; Stop 11/05/18 at 18:00 Albuterol (Proventil 0.083% (Neb)) 2.5 mg PACU ORDER PRN HHN .WHEEZING; Start 11/05/18 at 14:00; Stop 11/05/18 at 18:00 Meperidine HCl (Demerol) 25 mg PACU ORDER PRN IV .RIGORS; Start 11/05/18 at 14:00; Stop 11/05/18 at 18:00 ROCKY WILSON NP Nov 05, 2018 14:59
[2018-11-05] MEDS ORDERED: METOCLOPRAMIDE 10 MG INJ IV PRN (16:00)
[2018-11-05] MEDS ORDERED: hydrALAzine 20 MG INJ IV PRN (16:00)
[2018-11-05] MEDS ORDERED: DIPHENHYDRAMINE 50 MG INJ IV PRN (16:00)
[2018-11-05] MEDS ORDERED: LABETALOL HCL 20MG INJ IV PRN (16:00)
[2018-11-05] MEDS: CEFTRIAXONE 2 GM/50 ML (PMX) 50 ML IVPB SCH (17:25)
[2018-11-05] MEDS: TAMSULOSIN (SR) 0.4 MG CAP PO SCH (21:42)
[2018-11-05] MEDS: ZOLPIDEM 5 MG TAB PO PRN (21:50)
[2018-11-06 03:50] VITALS: BP 116/61; PULSE 80; RESP 18
[2018-11-06] MEDS: oxyCODONE (CR) 20 MG TAB [oxyCONTIN] PO SCH ×2 (06:14→14:23)
[2018-11-06 07:38] VITALS: BP 121/66; PULSE 81; RESP 18
[2018-11-06] MEDS: FLUTICASONE/VILANTEROL 100-25 INH SCH (08:42)
[2018-11-06] MEDS: FAMOTIDINE 20 MG TAB PO SCH (08:42)
[2018-11-06] MEDS: LISINOPRIL 10 MG TAB PO SCH (08:43)
[2018-11-06] MEDS: HYDROXYCHLOROQUINE 200 MG TAB PO SCH (08:43)
[2018-11-06] MEDS: METOPROLOL 25 MG TAB PO SCH (08:43)
[2018-11-06] MEDS: AMLODIPINE 10 MG TAB PO SCH (08:43)
[2018-11-06] MEDS: ENOXAPARIN 40 MG/0.4 ML SYG SC SCH (08:44)
[2018-11-06] MEDS: POLYETHYLENE GLYCOL 17 GM PACKET PO SCH (08:45)
--- NOTE | 2018-11-06 09:40 | PN ---
DATE: 11/06/2018 SUBJECTIVE: The patient had bronchoscopy yesterday, tolerated well. No other events noted. OBJECTIVE: VITAL SIGNS: Blood pressure is 121/66, respirations 18, pulse 81, temperature 98.0. HEENT: Head is normocephalic. NECK: Supple. HEART: Regular rate. LUNGS: Show diminished breath sounds at the base. ABDOMEN: Soft, nontender to palpation without rebound or guarding. EXTREMITIES: Negative for clubbing, cyanosis, no edema. DERMATOLOGIC: No rashes. MUSCULOSKELETAL: No joint effusion. NEUROLOGIC: No change in exam. MEDICATIONS: The patient's medications have been reviewed. LABORATORY DATA: Laboratory data has been reviewed. IMAGING STUDIES: Imaging studies have been reviewed. ASSESSMENT AND PLAN: 1. Nonoliguric acute kidney injury. Etiology is secondary to hemodynamics. Renal function is impro felicia. Continue to monitor. 2. Hypertension. Continue current blood pressure regimen. 3. Mineral bone disorder. Monitor calcium and phosphorus levels. 4. Pneumonia. The patient is status bronchoscopy, no obvious lesion and positive mucus. Continue t o monitor. Continue antibiotic regimen. 5. Respiratory failure secondary to pneumonia and chronic obstructive pulmonary disease. Continue c urrent treatment plan. 6. History of lupus. 7. History of migraines. 8. Arrhythmia, currently in sinus rhythm. Continue to monitor. Follow up with Cardiology. Dictated By: ZAID BISHOP DO NR/NTS Conf#: [id number] DID#: [id number] CC: JENNIFER ACOSTA MD; RACHEAL MORTENSEN MD;*EndCC*
--- NOTE | 2018-11-06 10:00 | CONS ---
Assessment/Plan Assessment/Plan Assessment/Plan (Daily) Assessment and recommendations; next 1. Patient with history of COPD admitted with shortness of breath with right lower lobe pneumonia with CT imaging of the chest showing right lower lobe atelectasis. Status post bronchoscopy yesterday with severe mucus impaction from bronchus intermedius all the way down to right lower lobe middle lobe and superior segment of the lower lobes. All mucous plugs were completely removed with patent bronchi without any evidence of any endobronchial lesion except for very minimal inflammation. Patient clinically significantly improved now. 2. 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 However currently there is no evidence to suggest that his CSF leak into the pleural space. 3. History of hypertension. 4. Patient has just recently quit smoking. Discharge the patient on DuoNeb to be used 3 times daily on a regular basis at home. There is no further need of any antibiotic use. Patient will need to follow-up with pulmonary clinic as an outpatient and will likely need to have a PFT performed. I would recommend patient follow-up with Dr. Esquivel in the office. Consultation Date/Type/Reason Admit Date/Time Oct 28, 2018 at 13:40 Initial Consult Date 11/04/18 Type of Consult Pulmonary Patient is a pleasant 62-year-old gentleman who was admitted on the second of this month with a few days history of shortness of breath and coughing. Upon evaluation a chest x-ray was done which showed right lower lobe pneumonia. Patient has been on appropriate antimicrobial regimen. Despite adequate treatment, CT imaging of the chest showing persistent right lower lobe consolidation with possibly right lower lobe atelectasis due to endobronchial lesion. Patient denies any weight loss, chest pain, complains of scant cough without any hemoptysis or sputum production. According to him he does not have any chronic respiratory symptoms. Past medical history; 1. Possibly underlying COPD. Asymptomatic though. 2. History of migraine. 3. Lupus. 4. BPH. 5. History of Budd-Chiari malformation. Status post treatment. Medications; reviewed. Allergies; Levaquin. Social history; patient has a extensive smoking history. Just recently quit smoking few weeks ago. No history of alcohol drug abuse. Family history; noncontributory. Patient is . 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 Review of systems; denies any headache, visual changes, dysphagia. Any chest pain, angina, wheezing. Complains of scant cough without any sputum production or hemoptysis. Denies any weight loss. Denies any abdominal pain, nausea vomiting. Any melena or hematochezia. Any urinary symptoms. Any edema orthopnea. Denies any chronic respiratory symptoms. General exam; middle-aged male, awake alert, currently in no distress. Requesting Provider: CHRISTOPHER MOORE NP Date/Time of Note DATE: 11/06/18 TIME: 09:57 24 HR Interval Summary Free Text/Dictation Patient's condition is stable. Reports significant reduction in right-sided chest pressure. Complains of very scant cough. General exam; middle-aged male, awake alert, currently in no distress. Exam/Review of Systems Exam Vitals Vital Signs Date Temp Pulse Resp B/P (MAP) Pulse Ox O2 O2 Flow FiO2 Time Delivery Rate 11/06/18 2.0 07:56 11/06/18 Nasal 07:44 Cannula 11/06/18 98.0 81 18 121/66 91 07:38 (84) 11/04/18 32 02:55 Intake and Output 11/05/18 11/05/18 11/06/18 1515:00 23:00 07:00 IntakeIntake Total 600 ml 300 ml 450 ml OutputOutput Total 0 ml BalanceBalance 600 ml 300 ml 450 ml Exam H EENT exam; supple neck, no JVD. No lymphadenopathy. Midline trachea. No thyromegaly. Patient has carious teeth. Chest exam; diminished breath sounds bilaterally with improved breath sounds right upper lobe. S1-S2 audible, no murmurs. Regular rhythm. Abdomen exam; soft, nontender. No organomegaly. Bowel sounds are audible. Extremity exam; no peripheral edema clubbing. VISION THERAPIST exam; no focal deficit. Results Result Diagram: 11/06/18 0624 11/06/18 0624 Results 24hrs Laboratory Tests Test 11/06/18 06:24 11/06/18 07:23 White Blood Count 16.7 H Red Blood Count 4.61 L Hemoglobin 13.2 L Hematocrit 41.1 L Mean Corpuscular Volume 89.2 Mean Corpuscular Hemoglobin 28.6 L Mean Corpuscular Hemoglobin Concent 32.1 Red Cell Distribution Width 12.9 Platelet Count 393 Mean Platelet Volume 10.2 Immature Granulocytes % 0.700 H Neutrophils % Segmented Neutrophils % (Manual) 46 Band Neutrophils % (Manual) 1 Lymphocytes % Lymphocytes % (Manual) 12 L Monocytes % Monocytes % (Manual) 7 Eosinophils % Eosinophils % (Manual) 31 H Basophils % Basophils % (Manual) 3 H Nucleated Red Blood Cells % 0.0 Immature Granulocytes # 0.110 H Neutrophils # Neutrophils # (Manual) 7.7 H Band Neutrophils # 0.1 Lymphocytes (Manual) 2.0 Lymphocytes # Monocytes # Monocytes # (Manual) 1.1 H Eosinophils # Basophils # Basophils # (Manual) 0.5 H Nucleated Red Blood Cells # Platelet Estimate NORMAL Poikilocytosis 1+ Anisocytosis 1+ Microcytosis 1+ Sodium Level 142 Potassium Level 4.3 Chloride Level 105 Carbon Dioxide Level 27 Anion Gap 10 Blood Urea Nitrogen 27 H Creatinine 1.14 Est Glomerular Filtrat Rate mL/min > 60 Glucose Level 102 Calcium Level 9.0 Phosphorus Level 3.8 Magnesium Level 2.1 Lab Scanned Report REFERENCE LAB Medications Medication Current Medications Hydroxychloroquine Sulfate (Plaquenil) 200 mg BID PO Last administered on 11/06/18 08:43; Admin Dose 200 MG; Start 10/28/18 at 21:00 Fluticasone/ Vilanterol (Breo Ellipta 100-25 Mcg Inh) 1 inh DAILY INH Last administered on 11/06/18 08:42; Admin Dose 1 INH; Start 10/29/18 at 09:00 Hydralazine HCl (Apresoline) 10 mg Q4H PRN IV sbp>160 Last administered on 10/29/18 17:07; Admin Dose 10 MG; Start 10/28/18 at 15:30 IV Flush (NS 3 ml) 3 ml PER PROTOCOL IV ; Start 10/28/18 at 15:30 Ondansetron HCl (Zofran Inj) 4 mg Q6H PRN IV NAUSEA/VOMITING Last administered on 11/03/18 21:16; Admin Dose 4 MG; Start 10/28/18 at 15:30 Acetaminophen (Tylenol Supp) 650 mg Q6H PRN SD .PAIN 1-3 OR TEMP; Start 10/28/18 at 15:30 Morphine Sulfate (morphine) 2 mg Q4H PRN IV .SEVERE PAIN 7-10 Last administered on 10/29/18at 18:51; Admin Dose 2 MG; Start 10/28/18 at 15:30 Enoxaparin Sodium (Lovenox) 40 mg DAILY SC Last administered on 11/06/18 08:44; Admin Dose 40 MG; Start 10/29/18 at 09:00 Ceftriaxone Sodium 50 ml @ 100 mls/hr Q24H IVPB Last administered on 11/05/18 17:25; Admin Dose 100 MLS/HR; Start 10/28/18 at 17:00 Ondansetron HCl (Zofran Tab) 4 mg Q6H PRN PO NAUSEA AND/OR VOMITING; Start 10/28/18 at 16:00 Oxycodone HCl (Roxicodone) 30 mg BID PRN PO MODERATE PAIN LEVEL 4-6 Last administered on 11/03/18 08:25; Admin Dose 30 MG; Start 10/28/18 at 19:00 Tamsulosin HCl (Flomax) 0.4 mg HS PO Last administered on 11/05/18 21:42; Admin Dose 0.4 MG; Start 10/28/18 at 21:00 Sumatriptan Succinate (Imitrex) 50 mg PRN PRN PO MIGRAINE Last administered on 10/30/18 17:39; Admin Dose 50 MG; Start 10/28/18 at 19:30 Zolpidem Tartrate (Ambien) 5 mg HS MAY REPEAT X 1 PRN PO INSOMNIA Last administered on 11/05/18 21:50; Admin Dose 5 MG; Start 10/28/18 at 17:30 Oxycodone HCl (Oxycontin) 60 mg Q8 PO Last administered on 11/06/18 06:14; Admin Dose 60 MG; Start 10/28/18 at 22:00 Clonidine (Catapres) 0.1 mg Q4H PRN PO sbp>160 Last administered on 10/30/18 08:00; Admin Dose 0.1 MG; Start 10/29/18 at 09:00 Polyethylene Glycol (Miralax) 17 gm DAILY PO Last administered on 10/31/18 08:51; Admin Dose 17 GM; Start 10/30/18 at 09:00 Amlodipine Besylate (Norvasc) 10 mg DAILY PO Last administered on 11/06/18 08:43; Admin Dose 10 MG; Start 10/30/18 at 09:00 Lisinopril (Zestril) 10 mg DAILY PO Last administered on 11/06/18 08:43; Admin Dose 10 MG; Start 10/30/18 at 09:00 Levalbuterol (Xopenex Neb) 1.25 mg Q4H RESP THERAPY PRN HHN sob Last administ ered on 11/03/18 22:51; Admin Dose 1.25 MG; Start 10/30/18 at 12:00 Famotidine (Pepcid) 20 mg BID PO Last administered on 11/06/18 08:42; Admin Dose 20 MG; Start 10/30/18 at 21:00 Metoprolol Tartrate (Lopressor) 25 mg BID PO Last administered on 11/06/18 08:43; Admin Dose 25 MG; Start 11/01/18 at 21:00 Magnesium Hydroxide (Milk Of Mag) 30 ml BID PRN PO CONSTIPATION; Start 11/01/18 at 20:30 Metoclopramide HCl (Reglan) 10 mg Q6H PRN IV NAUSEA/VOMITING; Start 11/02/18 at 13:30 AMBROCIO PADRON Nov 06, 2018 10:00
[2018-11-06] MEDS ORDERED: LISI10TA2 PO (10:31)
[2018-11-06] MEDS ORDERED: METO-448 PO (10:31)
[2018-11-06] MEDS ORDERED: AMLO-147 PO (10:31)
[2018-11-06] MEDS ORDERED: IPRA4AER INHALATION (10:33)
--- NOTE | 2018-11-06 10:37 | PDOCDIS ---
Discharge Instructions CONDITION [id number] Patient Condition: [id number] Stable HOME CARE INSTRUCTIONS: [id number] Diet Instructions: [id number] Low Fat /Cholesterol FOLLOW UP/APPOINTMENTS Follow-up Plan Ayo Esquivel MD Specialty: Pulmonary Medicine Office Address [id number] [facility] [address] [place] [id number] Office OTHER ORDERS: Other Orders: 1. Take medications as per prescription. Perianesthesia Manager has started you on 3 medications (lisinopril + amlodipine + metoprolol). 2. Use inhaled bronchodilators (Combivent) 3 times a day scheduled. 3. Resume activities as tolerated. 4. Take your regular, preferably low-cholesterol diet. 5. Follow-up with outpatient pulmonology (Dr. Esquivel) in the next 2 to 4 weeks. Please call for appointment. 6. Please go to the nearest emergency room if you have worsening shortness of breath, chest pain, or any other unusual signs/symptoms. MONTY TALLEY NP Nov 06, 2018 10:37
--- NOTE | 2018-11-06 11:08 | DS ---
Date/Time of Note Date/Time of Note DATE: 11/06/18 TIME: 11:05 Discharge Summary Admission/Discharge Info Admit Date/Time Oct 28, 2018 at 13:40 Discharge Date/Time Discharge Diagnosis 1. Community-acquired pneumonia. 2. Complete opacification of the right lower lobe with volume loss secondary to a mucous plug. S/P bronchoscopic removal on 11/05/2018. 3. COPD. 4. Hypertension. 5. Supraventricular tachycardia. 6. Cardiomyopathy; EF of 40-45%. 7. Acute nonoliguric kidney injury. Resolved. 8. Migraine headaches. 9. Lupus. 10. History of Chiari malformation, status post surgical intervention. 11. Low density 1.8 cm left adrenal nodule most likely an adenoma (incidental finding). 12. Hypodense 1.6 cm nodule in the right thyroid gland (incidental finding). Patient Condition: Stable Consults 1. David Marie MD, Infectious Diseases. 2. Maldonado Pete MD, Pulmonary. 3. Heaven Padilla DO, Nephrology. 4. Lars Ga MD, Cardiology. 5. Rene Kent MD, Gastroenterology. Procedures Operative Report Procedure Date: Nov 05, 2018 Preoperative Diagnosis Right lower lobe pneumonia. Bronchoscopy to rule out endobronchial lesion. Postoperative Diagnosis Severe mucous plugging involving the right lower lobe with mild endobronchial inflammation. Operation/Procedure Performed Bronchoscopy Nuclear Medicine Myocardial Perfusion Scan IMPRESSION: 1. Negative myocardial perfusion scan. 2. There is no evidence for reversible ischemia. 3. Normal wall motion with normal ejection fraction of 42%. Chest CT 0n 11/04/2018 IMPRESSION: 1. Complete opacification of the right lower lobe with volume loss. Underlying infiltrate cannot be excluded. Close follow-up is recommended. 2. Scattered ground-glass opacities in the bilateral upper lobes suggestive of infectious/inflammatory process. 3. Small amount of pleural effusion cannot be excluded. 4. Likely mild pulmonary hypertension. 5. Mild coronary artery calcifications. 6. Low density 1.8 cm left adrenal nodule most likely an adenoma. 7. Hypodense 1.6 cm nodule in the right thyroid gland. Consider further evaluation with thyroid ultrasound. 2D Echocardiogram Conclusions: Normal left ventricular systolic function. Normal left ventricular cavity size. Normal left ventricular wall thickness. Ejection fraction is visually estimated at 40-45 %. Tissue Doppler/Mitral Doppler indices are consistent with impaired relaxation (Stage I diastolic dysfunction). Normal appearance of the mitral valve. No mitral valve regurgitation is seen. Normal appearance of the tricuspid valve. No evidence of tricuspid regurgitation. Hx of Present Illness This is a 62-year-old male with a past medical history of lupus, Chiari malformation status post brain [id number] years ago, chronic pain, HTN, prostate hypertrophy, COPD, and migraine headaches who presented to the emergency room with a chief complaint of dyspnea with chest x-ray showing mild bibasilar opacities with underlying leukocytosis, was admitted to inpatient setting for further treatment and evaluation. Hospital Course The patient was started on treatment for community-acquired pneumonia. The patient was initially started on fluoroquinolones. However, the patient had an allergic reaction to fluoroquinolones. Therefore, this has been discontinued. Later, the patient was started on cephalosporins. The patient had evidence of underlying COPD. The patient was maintained on inhaled bronchodilators (JUS and LABA). The patient was maintained on supplemental oxygen. The patient also had evidence of underlying acute nonoliguric kidney injury. Therefore, the patient was being followed by nephrology. The patient's acute kidney injury had resolved. The patient also had episodes of nausea and vomiting. Therefore, the patient was evaluated by gastroenterology. Gastroenterology recommended symptomatic management with histamine 2 blockers, antiemetics, and prokinetics with improvement of the patient's symptoms. Meanwhile, the patient had an episode of supraventricular tachycardia on 11/01/2018. Therefore, the patient was evaluated by cardiology. The patient was started on beta-blockers. The patient underwent a 2D echocardiogram that was showing evidence of cardiomyopathy. Therefore, the patient was started on CHAD inhibitors. The patient was evaluated by nuclear medicine myocardial perfusion scan that was negative for any reversible perfusion defects. The patient's chest x-ray was showing opacification of the right lower lobe. This was confirmed with a CT scan of the chest on 11/04/2018 that showed complete opacification of the right lower lobe with volume loss. A chest ultrasound was done to evaluate for any pleural effusions and this was negative. Therefore, a pulmonology consult was obtained. The patient underwent a bronchoscopy on 11/05/2018 to evaluate for any endobronchial lesions. Bronchoscopy revealed severe mucous plugging involving the right lower lobe with mild endobronchial inflammation. The patient had at this mucous plugging removed during bronchoscopy. The patient has underlying hypertension. He was maintained on antihypertensives for the same. The patient has underlying migraine headaches. He was continued on ergot alkaloids. He has underlying lupus. He was continued on hydroxychloroquine. He has a history of Chiari malformation and he is status post surgical intervention approximately 11 years ago. The patient had a stable, but prolonged hospital course because of the complexity of the patient's clinical condition and the need for a bronchoscopy. The patient was cleared by consultants to be discharged home off antibiotics. Therefore, the patient will be discharged home, to be followed up with outpatient pulmonology. The patient's CT scan also showed incidental finding of a low-density 1.8 cm left lateral nodule, most likely representing adenoma. The CT also revealed a hypodense 1.6 cm nodule in the right thyroid gland. The patient has good outpatient follow-up and the patient can follow-up with his outpatient audiometric technician for further work-up of the incidental findings of adenoma and right thyroid gland nodule. Discharge Instructions 1. Take medications as per prescription. Crisis Counselor has started you on 3 medications (lisinopril + amlodipine + metoprolol). 2. Use inhaled bronchodilators (Combivent) 3 times a day scheduled. 3. Resume activities as tolerated. 4. Take your regular, preferably low-cholesterol diet. 5. Follow-up with outpatient pulmonology (Dr. Esquivel) in the next 2 to 4 weeks. Please call for appointment. 6. Please go to the nearest emergency room if you have worsening shortness of breath, chest pain, or any other unusual signs/symptoms. The The patient verbalized understanding of his discharge instructions. At this time I would like to thank all the consultants for seeing the patient, doing the necessary procedures, and providing clinical recommendations. The patient was seen in collaboration with Dr. Coleman. Home Meds Active Scripts Albuterol/Ipratropium* (Combivent Respimat*) 20-100 Mcg/Inh - 4 Gm Aer.w.adap, 1 PUFF INHALATION TID, #1 INHALER 1 puff tid scheduled as per pulmonology. Prov:MONTY TALLEY NP 11/06/18 Metoprolol Tartrate* (Lopressor*) 25 Mg Tab, 25 MG PO BID, #60 TAB Prov:MONTY TALLEY NP 11/06/18 Amlodipine Besylate* (Amlodipine Besylate*) 10 Mg Tablet, 10 MG PO DAILY, #30 TAB Prov:MONTY TALLEY DIRECTOR OF QUALITY IMPROVEMENT 11/06/18 Lisinopril* (Lisinopril*) 10 Mg Tablet, 10 MG PO DAILY, #30 TAB Prov:MONTY TALLEY DIRECTOR OF QUALITY IMPROVEMENT 11/06/18 Reported Medications Temazepam* (Temazepam*) 30 Mg Capsule, 30 MG PO HS PRN for INSOMNIA, CAP 10/28/18 Rizatriptan Benzoate (Rizatriptan Benzoate) 10 Mg Tab.rapdis, 10 MG PO NEEDED PRN for MIGRAINE, TAB may repeat after 2 hours, MAX 30 mg/24 hour 10/28/18 Hydroxychloroquine Sulfate* (Hydroxychloroquine Sulfate*) 200 Mg Tablet, 200 MG PO BID, TAB 10/28/18 Tamsulosin Hcl* (Flomax*) 0.4 Mg Cap.er.24h, 0.4 MG PO HS, CAP 10/28/18 Discontinued Reported Medications Ondansetron Hcl* (Zofran*) 4 Mg Tab, 4 MG PO Q6H PRN for NAUSEA AND OR VOMITING, TAB 10/28/18 Oxycodone Hcl* (Oxycontin*) 60 Mg Tab.sr.12h, 60 MG PO Q8H, TAB 10/28/18 Oxycodone Hcl* (Oxycontin*) 30 Mg Tab.sr.12h, 30 MG PO NEEDED, TAB 10/28/18 Clonidine Hcl* (Clonidine Hcl*) 0.2 Mg Tablet, 0.2 MG PO BID PRN for NEEDED, TAB 10/28/18 Sulfamethoxazole/Trimethoprim* (Bactrim Ds* Tablet) 1 Each Tablet, 1 TAB PO BID, TAB FOR 21 DAYS, START DATE 10/17/18 10/28/18 Follow-up Plan Ayo Esquivel MD Specialty: Pulmonary Medicine Office Address [id number] [facility] [address] [place] [address] Office Primary Care Provider Not On Staff Doctor Time spent on discharge: > 30 minutes Pending Labs Laboratory Tests Test 11/06/18 06:24 11/06/18 07:23 White Blood Count 16.7 10^3/ul (4.8-10.8) Red Blood Count 4.61 10^6/ul (4.70-6.10) Hemoglobin 13.2 g/dl (14.0-18.0) Hematocrit 41.1 % (42.0-52.0) Mean Corpuscular Volume 89.2 fl (82.0-101.0) Mean Corpuscular Hemoglobin 28.6 pg (29.0-33.0) Mean Corpuscular 32.1 g/dl (32.0-37.0) Hemoglobin Concent Red Cell Distribution Width 12.9 % (11.5-14.5) Platelet Count 393 10^3/UL (140-415) Mean Platelet Volume 10.2 fl (7.4-10.4) Immature Granulocytes % 0.700 % (0.001-0.429) Neutrophils % % (39.0-77.0) Segmented Neutrophils 46 % (39-77) % (Manual) Band Neutrophils % (Manual) 1 % (0-4) Lymphocytes % % (15.0-51.0) Lymphocytes % (Manual) 12 % (15-51) Monocytes % % (0.0-11.0) Monocytes % (Manual) 7 % (0-11) Eosinophils % % (0.0-7.0) Eosinophils % (Manual) 31 % (0-7) Basophils % % (0.0-2.0) Basophils % (Manual) 3 % (0-2) Nucleated Red Blood Cells % 0.0 /100WBC (0.0-0.0) Immature Granulocytes # 0.110 10^3/ul (0.0-0.031) Neutrophils # 10^3/ul (1.6-7.5) Neutrophils # (Manual) 7.7 10^3/ul (1.6-7.5) Band Neutrophils # 0.1 10^3/ul (0.0-0.6) Lymphocytes (Manual) 2.0 10^3/ul (0.8-2.9) Lymphocytes # 10^3/ul (0.8-2.9) Monocytes # 10^3/ul (0.3-0.9) Monocytes # (Manual) 1.1 10^3/ul (0.3-0.9) Eosinophils # 10^3/ul (0.0-0.5) Basophils # 10^3/ul (0.0-0.1) Basophils # (Manual) 0.5 10^3/ul (0.0-0.0) Nucleated Red Blood Cells # 10^3/ul (0.0-0.0) Platelet Estimate NORMAL Poikilocytosis 1+ (0-0) Anisocytosis 1+ (0-0) Microcytosis 1+ (0-0) Sodium Level 142 mmol/L (135-144) Potassium Level 4.3 mmol/L (3.5-5.1) Chloride Level 105 mmol/L (97-110) Carbon Dioxide Level 27 mmol/L (21-31) Anion Gap 10 (5-13) Blood Urea Nitrogen 27 mg/dl (7-20) Creatinine 1.14 mg/dl (0.61-1.24) Est Glomerular Filtrat > 60 mL/min (>60) Rate mL/min Glucose Level 102 mg/dl (70-220) Calcium Level 9.0 mg/dl (8.4-10.2) Phosphorus Level 3.8 mg/dl (2.5-4.9) Magnesium Level 2.1 mg/dl (1.7-2.5) Lab Scanned Report [facility] [id number] MONTY TALLEY NP Nov 06, 2018 11:08
[2018-11-06 11:26] VITALS: BP 125/80; PULSE 79; RESP 18
--- NOTE | 2018-11-06 11:46 | CONS ---
Assessment/Plan Assessment/Plan Hospital Course (Demo Recall) No acute events overnight, no fevers Allergy: Levaquin Antimicrobials: Rocephin Physical examination: This is obese swelling developed and very pleasant elderly white man who is alert in no distress. Head atraumatic normocephalic neck is supple chest rise symmetrical breath sounds diminished to bases. Heart: S1-S2. Abdomen soft bowel sounds present. Assessment: 1. Acute hypoxemic respiratory failure 2 to mucus plugs, s/p bronch ==>Severe mucous plugging involving the right lower lobe with mild endobronchial inflammation. 2. S/p right upper lobe pneumonia 3. COPD 4. BPH 5. SVT 6. History of lupus 7. History of Chiari malformation status post surgery Plan: Stable, pulmonary rec-s noted, ok dc off abx Consultation Date/Type/Reason Admit Date/Time Oct 28, 2018 at 13:40 Initial Consult Date Type of Consult id Requesting Provider: CHRISTOPHER MOORE NP Date/Time of Note DATE: 11/06/18 TIME: 11:45 Exam/Review of Systems Exam Vitals Vital Signs Date Temp Pulse Resp B/P (MAP) Pulse Ox O2 O2 Flow FiO2 Time Delivery Rate 11/06/18 98.1 79 18 125/80 91 11:26 (95) 11/06/18 2.0 07:56 11/06/18 Nasal 07:44 Cannula 11/04/18 32 02:55 Intake and Output 11/05/18 11/05/18 11/06/18 1515:00 23:00 07:00 IntakeIntake Total 600 ml 300 ml 450 ml OutputOutput Total 0 ml BalanceBalance 600 ml 300 ml 450 ml Results Result Diagram: 11/06/1824 11/06/18 0624 Results 24hrs Laboratory Tests Test 11/06/18 06:24 11/06/18 07:23 White Blood Count 16.7 H Red Blood Count 4.61 L Hemoglobin 13.2 L Hematocrit 41.1 L Mean Corpuscular Volume 89.2 Mean Corpuscular Hemoglobin 28.6 L Mean Corpuscular Hemoglobin Concent 32.1 Red Cell Distribution Width 12.9 Platelet Count 393 Mean Platelet Volume 10.2 Immature Granulocytes % 0.700 H Neutrophils % Segmented Neutrophils % (Manual) 46 Band Neutrophils % (Manual) 1 Lymphocytes % Lymphocytes % (Manual) 12 L Monocytes % Monocytes % (Manual) 7 Eosinophils % Eosinophils % (Manual) 31 H Basophils % Basophils % (Manual) 3 H Nucleated Red Blood Cells % 0.0 Immature Granulocytes # 0.110 H Neutrophils # Neutrophils # (Manual) 7.7 H Band Neutrophils # 0.1 Lymphocytes (Manual) 2.0 Lymphocytes # Monocytes # Monocytes # (Manual) 1.1 H Eosinophils # Basophils # Basophils # (Manual) 0.5 H Nucleated Red Blood Cells # Platelet Estimate NORMAL Poikilocytosis 1+ Anisocytosis 1+ Microcytosis 1+ Sodium Level 142 Potassium Level 4.3 Chloride Level 105 Carbon Dioxide Level 27 Anion Gap 10 Blood Urea Nitrogen 27 H Creatinine 1.14 Est Glomerular Filtrat Rate mL/min > 60 Glucose Level 102 Calcium Level 9.0 Phosphorus Level 3.8 Magnesium Level 2.1 Lab Scanned Report [facility] LAB Medications Medication Current Medications Hydroxychloroquine Sulfate (Plaquenil) 200 mg BID PO Last administered on 11/06/18 08:43; Admin Dose 200 MG; Start 10/28/18 at 21:00 Fluticasone/ Vilanterol (Breo Ellipta 100-25 Mcg Inh) 1 inh DAILY INH Last admi nistered on 11/06/18 08:42; Admin Dose 1 INH; Start 10/29/18 at 09:00 Hydralazine HCl (Apresoline) 10 mg Q4H PRN IV sbp>160 Last administered on 10/29/18 17:07; Admin Dose 10 MG; Start 10/28/18 at 15:30 IV Flush (NS 3 ml) 3 ml PER PROTOCOL IV ; Start 10/28/18 at 15:30 Ondansetron HCl (Zofran Inj) 4 mg Q6H PRN IV NAUSEA/VOMITING Last administered on 11/03/18 21:16; Admin Dose 4 MG; Start 10/28/18 at 15:30 Acetaminophen (Tylenol Supp) 650 mg Q6H PRN [place] .PAIN 1-3 OR TEMP; Start 10/28/18 at 15:30 Morphine Sulfate (morphine) 2 mg Q4H PRN IV .SEVERE PAIN 7-10 Last administered on 10/29/18 18:51; Admin Dose 2 MG; Start 10/28/18 at 15:30 Enoxaparin Sodium (Lovenox) 40 mg DAILY SC Last administered on 11/06/18 08:44; Admin Dose 40 MG; Start 10/29/18 at 09:00 Ceftriaxone Sodium 50 ml @ 100 mls/hr Q24H IVPB Last administered on 11/05/18 17:25; Admin Dose 100 MLS/HR; Start 10/28/18 at 17:00 Ondansetron HCl (Zofran Tab) 4 mg Q6H PRN PO NAUSEA AND/OR VOMITING; Start 10/28/18 at 16:00 Oxycodone HCl (Roxicodone) 30 mg BID PRN PO MODERATE PAIN LEVEL 4-6 Last administered on 11/03/18 08:25; Admin Dose 30 MG; Start 10/28/18 at 19:00 Tamsulosin HCl (Flomax) 0.4 mg HS PO Last administered on 11/05/18 21:42; Admin Dose 0.4 MG; Start 10/28/18 at 21:00 Sumatriptan Succinate (Imitrex) 50 mg PRN PRN PO MIGRAINE Last administered on 10/30/18 17:39; Admin Dose 50 MG; Start 10/28/18 at 19:30 Zolpidem Tartrate (Ambien) 5 mg HS MAY REPEAT X 1 PRN PO INSOMNIA Last administered on 11/05/18 21:50; Admin Dose 5 MG; Start 10/28/18 at 17:30 Oxycodone HCl (Oxycontin) 60 mg Q8 PO Last administered on 11/06/18 06:14; Admin Dose 60 MG; Start 10/28/18 at 22:00 Clonidine (Catapres) 0.1 mg Q4H PRN PO sbp>160 Last administered on 10/30/18 08:00; Admin Dose 0.1 MG; Start 10/29/18 at 09:00 Polyethylene Glycol (Miralax) 17 gm DAILY PO Last administered on 10/31/18 08:51; Admin Dose 17 GM; Start 10/30/18 at 09:00 Amlodipine Besylate (Norvasc) 10 mg DAILY PO Last administered on 11/06/18 08:43; Admin Dose 10 MG; Start 10/30/18 at 09:00 Lisinopril (Zestril) 10 mg DAILY PO Last administered on 11/06/18 08:43; Admin Dose 10 MG; Start 10/30/18 at 09:00 Levalbuterol (Xopenex Neb) 1.25 mg Q4H RESP THERAPY PRN HHN sob Last administered on 11/03/18at 22:51; Admin Dose 1.25 MG; Start 10/30/18 at 12:00 Famotidine (Pepcid) 20 mg BID PO Last administered on 11/06/18at 08:42; Admin Dose 20 MG; Start 10/30/18 at 21:00 Metoprolol Tartrate (Lopressor) 25 mg BID PO Last administered on 11/06/18at 08:43; Admin Dose 25 MG; Start 11/01/18 at 21:00 Magnesium Hydroxide (Milk Of Mag) 30 ml BID PRN PO CONSTIPATION; Start 11/01/18 at 20:30 Metoclopramide HCl (Reglan) 10 mg Q6H PRN IV NAUSEA/VOMITING; Start 11/02/18 at 13:30 ROCKY WILSON NP Nov 06, 2018 11:46
[2018-11-06 15:00] VITALS: BP 125/77; PULSE 66; RESP 18
== END 2018-11-06 15:58 | disposition home or self-care (01) | DRG 853 ==
LOC: E/R 11:33 → 2NE 13:40 → TEL 11-01 09:29
PROVIDERS: ADMIT Internal Medicine; ATTEND Internal Medicine
PROC: 0B958ZZ Drainage of Right Middle Lobe Bronchus, Via Natural or Artificial Opening Endoscopic (ICD-10-PCS; 2018-11-05)
PROC: 0B9F8ZZ Drainage of Right Lower Lung Lobe, Via Natural or Artificial Opening Endoscopic (ICD-10-PCS; principal; 2018-11-05 10:30)
DX: A41.9 Sepsis, unspecified organism (principal); J18.9 Pneumonia, unspecified organism; J96.90 Respiratory failure, unspecified, unspecified whether with hypoxia or hypercapnia; J44.1 Chronic obstructive pulmonary disease with (acute) exacerbation; N17.9 Acute kidney failure, unspecified; I12.0 Hypertensive chronic kidney disease with stage 5 chronic kidney disease or end stage renal disease; I47.1 Supraventricular tachycardia; I42.9 Cardiomyopathy, unspecified; T17.890A Other foreign object in other parts of respiratory tract causing asphyxiation, initial encounter; M32.9 Systemic lupus erythematosus, unspecified; G89.4 Chronic pain syndrome; N40.0 Benign prostatic hyperplasia without lower urinary tract symptoms; G43.909 Migraine, unspecified, not intractable, without status migrainosus; N18.9 Chronic kidney disease, unspecified; E66.9 Obesity, unspecified; Z68.26 Body mass index [BMI] 26.0-26.9, adult; X58.XXXA Exposure to other specified factors, initial encounter; Y93.89 Activity, other specified; Y92.019 Unspecified place in single-family (private) house as the place of occurrence of the external cause
CPT/HCPCS: 36415; 71045; 71250; 76604; 78452; 80048; 80053; 80061; 81003; 82043; 82962; 83036; 83605; 83735; 83880; 84100; 84155; 84300; 84436; 84443; 84479; 84484; 85025; 87077; 87081; 87400; 93005; 93017; 93306; 94640; 94644; 94664; 96365; 96367; 96368; 96375; A9500; A9505; J0360; J0456; J0696; J1100; J1650; J2250; J2270; J2405; J2765; J2785; J3010; J3475; J7030